=== PATIENT | female | born 1955 | race Caucasian/White ===

== ENCOUNTER 2016-10-09 11:37 | Outpatient (CLI) | payer BC ==
[~2016-10-09] VITALS: Ht 167.6 cm; Wt 115.9 kg
--- NOTE | ~2016-10-09 | HEMODYNAMI ---
PATIENT:ADELFO DIALLO MEDICAL RECORD: [id number] : 57 LOCATION:[facility] ADMISSION DATE: 10/09/16 Generatedon:10/09/201614:59 Patient name: ADELFO DIALLO Patient #: [id number] SSN: : 1955 Date of study: 10/09/2016 Page: Of Hemodynamic Procedure Report Patient Data Patient Demographics Procedure consent was obtained First Name: ADELFO Gender: Female Last Name: IMANI : 1955 [facility] Initial: DANDY Age: 61 year(s) Patient #: [id number] Race: Additional ID: [id number] Contact details Address: [address] [place] [address] State: [place] City: [place] Zip code: [address] Past Medical History Allergies: No known allergies Admission Admission Data Admission Date: 10/09/2016 Admission Time: 11:37 Lab Results Lab Result Date: 10/09/2016 Lab Result Time: 1:15 Biochemistry Name Units Result Min Max BUN mg/dl 26 --(----)-* 7 18 Creatinine mg/dl 0.9 --(-*--)-- 0.6 1.3 CBC Name Units Result Min Max Hematocrit % 42.5 --(*---)-- 42 54 Hemoglobin g/dl 13.9 --(*---)-- 13.5 17.5 Procedure Procedure Types Cath Procedure Diagnostic Procedure C [facility] w/Coronaries PCI Procedure Coronary Stent Initial Miscellaneous Procedures Moderate Sedation up to 30 minutes Procedure Description Procedure Date Procedure Date: 10/09/2016 Procedure Start Time: 14:36 Procedure End Time: 14:58 Procedure Staff Name Function Rodrigeuz Stephen MD Performing Physician Park Guzman RT Scrub Norman Farias RN Nurse Stephan Corrales RT Monitor Procedure Data Cath Procedure Fluoroscopy Diagnostic fluoroscopy Total fluoroscopy Time: 4.8 time: 4.8 min min Diagnostic fluoroscopy Total fluoroscopy dose: dose: 1043 mGy 1043 mGy Contrast Material Contrast Material Type Amount (ml) Isovue 300 132 Entry Location Entry Primary Successful Side Size Upsize Upsize Entry Closure Womack ccessful Closure Location (Fr) 1 (Fr) 2 (Fr) Remarks Device Remarks Radial Right 6 Fr Mechanical artery Short Compression Estimated blood loss: 10 ml Diagnostic catheters Device Type Used For End Catheter Placement Terumo 5Fr [place] 110cm Procedure catheter Procedure Complications No complications Procedure Medications Medication Administration Route Dosage Oxygen NC 2 l/min Heparin Flush Bag added to field 2 bags (1000units/500ml NS) 0.9% NaCl I.V. 100 ml/hr Radial Cocktail added to field 1 syringe (Verapomil 2mg/Nitro 400mcg/Heparin 1500units) Fentanyl I.V. 50 mcg Versed I.V. 1 mg Radial Cocktail I.A. 1 syringe (Verapomil 2mg/Nitro 400mcg/Heparin 1500units) Fentanyl I.V. 50 mcg Versed I.V. 1 mg Heparin Bolus I.V. 29424 units Brilinta P.O. 180 mg Hemodynamics Rest HGB: 13.9 (g/dl) Heart Rate: 66 (bpm) Pressure Samples Time Site Value (mmHg) Purpose Heart Use Rate(bpm) 14:38 LV 107/-6,5 Snapshot 62 14:38 LV 112/0,7 Snapshot 62 14:39 AO 105/55(73) Pullback 69 14:39 LV 106/-4,6 Pullback 69 Gradients Valve Time Site 1 Site 2 Mean SEP/DFP Peak To Heart Use (mmHg) (sec/min) Peak Rate (mmHg) (bpm) Aortic 14:39 LV AO 1 4 1 69 106/-4,6 105/55(73) Calculations Valve P-P Mean Valve Index Valve Source Name Gradient Area Flow (cm2) Aortic 1 1 1 1 Snapshots Pre Cath Intra NCS Post Cath Vital Signs Time Heart Resp SPO2 NIBP (mmHg) Rhythm Pain Sedation Rate (ipm) (%) Status Level (bpm) 14:27:29 64 18 100 178/91(139) NSR 0 (11) 10(A) , No pain 14:35:28 60 18 100 147/74(120) NSR 0 (11) 10(A) , No pain 14:45:45 64 18 96 134/73(106) NSR 0 (11) 9(A) , No pain 14:50:09 63 17 97 144/72(116) NSR 0 (11) 9(A) , No pain 14:54:33 63 17 98 147/74(120) NSR 0 (11) 9(A) , No pain Medications Time Medication Route Dose Verified Delivered Reason Note s Effectiveness by by 14:20:01 Oxygen NC 2 l/min Norman Austin Per physician Jarrett Farias RN RN 14:20:12 Heparin Flush added 2 bags Norman Hernandezy used for Bag to Jarrett Farias RN procedure (1000units/500ml field RN NS) 14:20:22 0.9% NaCl I.V. 100 Norman Norman Per physician ml/hr Jarrett aFrias RN RN 14:20:39 Radial Cocktail added 1 Norman Norman used for (Verapomil to syringe Jarrett Farias RN procedure 2mg/Nitro field RN 400mcg/Heparin 1500units) 14:32:02 Fentanyl I.V. 50 mcg Norman Austin for sedation Jarrett Farias RN RN 14:32:08 Versed I.V. 1 mg Norman Norman for sedation Jarrett Farias RN RN 14:37:43 Radial Cocktail I.A. 1 Norman Rodriguez for (Verapomil syringe Jarrett Stephen MD vasodilation 2mg/Nitro RN 400mcg/Heparin 1500units) 14:37:48 Fentanyl I.V. 50 mcg Norman Hernandezy for sedation Jarrett Farias RN RN 14:37:54 Versed I.V. 1 mg Norman Austin for sedation Jarrett Farias RN RN 14:46:33 Heparin Bolus I.V. 56466 Norman Austin for units Jarrett Farias RN anticoagulation RN 14:53:20 Brilinta P.O. 180 mg Norman Austin for Jarrett Farias RN antiplatelet RN therapy Procedure Log Time Note 13:32:53 Norman Farias RN sent for patient. Start room use. 13:32:55 Time tracking: Regular hours 13:32:58 Plan of Care:Hemodynamics will remain stable., Cardiac rhythm will remain stable., Comfort level will be maintained., Respiratory function will remain adequate., Patient/ family verbilizes understanding of procedure., Procedure tolerated without complication., Recovers from procedure without complications.. 14:12:23 Patient received from Pre/Post Procedure Room to CCL 2 Alert and oriented. Tansferred to table in Supine position. 14:12:24 Warm blankets applied, and brenton hugger turned on for patient comfort. 14:12:25 Correct patient and procedure confirmed by team. 14:12:25 Signed procedure consent form obtained from patient. 14:12:26 ECG and BP/O2 sat monitors applied to patient. 14:12:27 Full Disclosure recording started 14:18:39 Vital chart was started 14:20:01 Oxygen 2 l/min NC was administered by Norman Farias RN; Per physician; 14:20:12 Heparin Flush Bag (1000units/500ml NS) 2 bags added to field was administered by Norman Farias RN; used for procedure; 14:20:22 0.9% NaCl 100 ml/hr I.V. was administered by Norman Farias RN; Per physician; 14:20:39 Radial Cocktail (Verapomil 2mg/Nitro 400mcg/Heparin 1500units) 1 syringe added to field was administered by Norman Farias RN; used for procedure; 14:24:34 Baseline sample Acquired. 14:24:39 Rhythm: sinus rhythm 14:24:56 H&P Date Dictated: 10/02/2016 Within 30 days and on chart., H&P Addendum completed by physician on day of procedure. (MUST COMPLETE FOR ALL OUTPATIENTS). 14:24:57 Pre-procedure instructions explained to patient. 14:24:57 Pre-op teaching completed and patient verbalized understanding. 14:24:58 Family in waiting room. 14:24:59 Patient NPO since Midnight. 14:25:09 Patient allergic to No known allergies 14:25:11 Is the patient allergic to Iodine/contrast media? No. 14:25:13 Is patient on blood thinner?No 14:25:14 Patient diabetic? Yes. 14:25:14 If diabetic: On Metformin? Yes 14:25:21 Vital chart was stopped 14:25:53 If on Metformin: Last Dose? 10/07/2016 14:25:57 Previous problem with sedation/anesthesia? No ? 14:25:57 Snore? Yes 14:25:58 Sleep apnea? No 14:25:59 Deviated septum? No 14:26:00 Opens mouth fully? Yes 14:26:01 Sticks out tongue? Yes 14:26:03 Airway obstruction? No ? 14:26:04 Dentures? No ? 14:26:07 Modified Felix's test Ulnar < 7 seconds 14:26:08 Patient pain scale 0/10 ?. 14:26:16 IV patent on arrival in left hand with 0.9% NaCl at [facility]. 14::57 Lab Result : BUN 26 mg/dl 14: Lab Result : Creatinine 0.9 mg/dl 14: Lab Result : Hemoglobin 13.9 g/dl 14:: Lab Result : Hematocrit 42.5 % 14:27: Lab results completed and on chart. 14:27:04 Right Radial & Right Groin area was prepped with chlora-prep and draped in sterile fashion 14:27:05 Alarms reviewed by R. N. 14:27:06 Sharps counted by scrub and verified by R.N. 14:27:12 Use device set Radial Dx 14:27:12 MBrace Wrist Support opened to sterile field. 14:27:13 Tegaderm 4 x 4 opened to sterile field. 14:27:14 Acist Manifold opened to sterile field. 14:27:14 Acist Hand Control opened to sterile field. 14:27:15 Acist Syringe opened to sterile field. 14:27:16 Medline Cath Pack opened to sterile field. 14:27:16 Bag Decanter opened to sterile field. 14:27:17 Terumo 6Fr Slender Glidesheath opened to sterile field. 14:27:17 St Ag 260cm J .035 wire opened to sterile field. 14:27:30 Physician arrived 14::33 --------ALL STOP TIME OUT------ 14:27:34 Final Timeout: patient, procedure, and site verified with staff and physician. All members of the team are in agreement. 14:27:38 Right Radial & Right Groin site verified by team. 14::49 Physical assessment completed. ASA score P 2 - A patient with mild systemic disease as per Rodriguez Stephen MD. 14:27:52 Sedation plan: IV Moderate Sedation Versed, Fentanyl 14:32:02 Fentanyl 50 mcg I.V. was administered by Normna Farias RN; for sedation; 14:32:08 Versed 1 mg I.V. was administered by Norman Farias RN; for sedation; 14:36:05 Zero performed for pressure channel P1 14:36:44 Procedure started. 14:36:49 Local anesthetic to right radial artery with Lidocaine 2% by Rodriguez Stephen MD.INITIAL ACCESS ONLY 14:37:00 A 6 Fr Short sheath was inserted into the Right Radial artery 14:37:21 A Terumo 5Fr [place] 110cm catheter was advanced over the wire and used for Procedure. 14:37:43 Radial Cocktail (Verapomil 2mg/Nitro 400mcg/Heparin 1500units) 1 syringe I.A. was administered by Rodriguez Stephen MD; for vasodilation; 14:37:48 Fentanyl 50 mcg I.V. was administered by Norman Farias RN; for sedation; 14:37:54 Versed 1 mg I.V. was administered by Norman Farias RN; for sedation; 14:39:07 LV gram done using GOMEZ 14:39:10 Injector settings: Ml/sec: 5, Volume: 15, 14:39:14 EF : 55 % 14:39:52 LCA angiography performed. 14:41:12 RCA angiography performed. 14:42:44 Catheter removed. 14:43:05 High Pressure Extension Tubing (Zafar) opened to sterile field. 14:43:06 Puckett BMW [place] 2 J-tip 300cm 0.014 guide wir opened to sterile field. 14:43:06 Hiri BasixCompak Inflation Kit opened to sterile field. 14:44:03 Medtronic Launcher 6Fr AR 1.0 guide catheter opened to sterile field. 14:44:12 6 Fr ar 1 guide catheter was inserted over the wire 14:44:51 Vital chart was started 14:46:33 Heparin Bolus 19692 units I.V. was administered by Norman Farias RN; for anticoagulation; 14:46:53 bmw wire advanced. 14:50:30 Inflation Number: 1 A Medtronic Integrity 3.0 X 22 stent was prepped and advanced across the Mid RCA. The stent was deployed at 12 GABRIELLA for 0:10 (min:sec). 14:52:26 Stent catheter was removed intact over wire. 14:52:26 Wire removed. 14:52:27 Guide catheter removed. 14:53:11 Sheath removed intact; hemostasis achieved with Mechanical Compression to the Right Radial artery. 14:53:13 Procedure ended.(Physican Out) 14:53:20 Brilinta 180 mg P.O. was administered by Norman Farias RN; for antiplatelet therapy; 14:55:02 Fluoroscopy time 04.80 minutes. 14:55:07 Flurop Dose total: 1043 14:55:07 Fluoroscopy dose: 1043 mGy 14:56:01 Contrast amount:Isovue 300 132ml. 14:56:02 Sharps counted by scrub and verified by R.N. 14:56:07 TR band inflated with 12cc of air. 14:56:07 Insertion/operative site no bleeding no hematoma. 14:56:11 Post Procedure Pulses reassessed and unchanged 14:56:13 Post-procedure physical assessment completed. ASA score P 2 - A patient with mild systemic disease as per Rodriguez Stephen MD. 14:56:15 Post procedure rhythm: unchanged. 14:56:17 Estimated blood loss: 10 ml 14:56:19 Post procedure instruction explained to patient.Patient verbalizes understanding. 14:56:19 Patient needs reinforcement of post procedure teaching. 14:56:30 Procedure type changed to Cath procedure, Diagnostic procedure, LHC, LHC w/Coronaries, PCI procedure, Coronary Stent Initial, Miscellaneous Procedures, Moderate Sedation up to 30 minutes 14:58:13 Procedure and supply charges have been captured, reviewed, submitted and are correct. 14:58:18 Procedure Complication : No complications 14:58:20 See physician's report for complete and final results. 14:58:22 Report given to Pre/Post Procedure Room. 14:58:24 Patient transfered to Pre/Post Procedure Room with Stretcher. 14:58:25 Procedure ended. 14:58:25 Full Disclosure recording stopped 14:58:43 End room use (Document Last) 14:59:04 Vital chart was stopped Intervention Summary Intervention Notes Time ActionType Lesion and Equipment Action# Pressure Duration Attributes Used 14:50:30 Place stent Mid RCA Medtronic 1 12 00:10 Integrity 3.0 X 22 stent Device Usage Item Name Manufacture Quantity Catalog Hospital Part Current Minimal Lot# / Number Charge Number Stock Stock Serial# Code [facility] Advanced 1 140-0250-00 524183 50108 542813 5 Wrist Vascular Support Dynamics Tegaderm 4 3M 1 1626W 114674 912454 079884 5 x 4 Acist Acist 1 66524 113638 902478 845042 5 Manifold Medical Systems Inc Acist Hand Acist 1 25441 807366 119110 995465 5 Control Medical Systems Inc Acist Acist 1 61349 454667 833685 756070 20 Syringe Medical Systems Inc Medline Cardinal 1 [id number] 416017 10044 423615 5 Cath Pack Health Bag Microtek 1 2002S 791122 57881 868038 5 DecTrashOut Medical Inc. Terumo 6Fr Terumo 1 [id number] 967269 388562 097981 [address] Ag St Ag 1 867960 548213 120676 533187 30 260cm J .035 wire Terumo 5Fr Terumo 1 40-8523 593659 368545 287095 5 [place] 110cm catheter High Merit 1 [id number] 539816 18051 125595 10 Pressure Medical Extension Tubing (Stephen) Puckett BMW Puckett 1 [id number] 727378 896332 391787 5 [place] 2 Vascular J-tip 300cm 0.014 guide wir Merit Merit 1 [id number] 878817 506988 339566 15 BasixCompak Medical Inflation Kit Medtronic Medtronic 1 [id number] 562004 52768 441242 1 Launcher 6Fr AR 1.0 guide catheter Medtronic Medtronic 1 [id number] 012731 212905 149768 9 [id number] Integrity 3.0 X 22 stent Signature Audit [place] Stage Time Signature Unsigned Intra-Procedure 10/09/2016 Stephan Corrales 2:59:01 PM RT(R) Signatures Monitor : Stephan Corrales RT Signature : Date : Time : [place] [address] [place] [place] [address]
[~2016-10-09 11:37] MED LIST: ASPIRIN EC81 M1 PO; BENADRYL25 MG PO; BRILINTA90 MG PO; GLUCOPHAGE500 MG PO; K-TAB10 MEQ PO; LASIX20 MG PO; LYRICA75 MG PO; NOVOLIN N100 U/ML SQ; PERCOCET 10/3251 TA1 PO; PROTONIX20 MG PO; ULTRAM50 MG PO; ZESTORETIC 20-1 EACH PO
[2016-10-09] MEDS ORDERED: TRESIBA FL100 UNIT/1 SC (13:19)
[2016-10-09 13:23] VITALS: BP 174/76; Ht 167.6 cm; Wt 115.9 kg
[2016-10-09 13:28] LABS: BASOPHILS 0.5 % (0-2); EOSINOPHILS 0.9 % (0-7); HEMATOCRIT 42.5 % (36.0-48.0); HEMOGLOBIN 13.9 g/dL (12-16); IMMATURE GRANULOCYTES 0.1 % (0-5); LYMPHOCYTES 31.4 % (15-50); MCH 30.4 pg (26.0-34.0); MCHC 32.7 g/dL (31.0-37.0); MEAN PLATELET VOLUME 10.6 fL (7.4-10.4); MONOCYTES 8.8 % (2-11); NEUTROPHILS 58.3 % (40-80); PLATELET COUNT 249 10x3/uL (130-400); RBC 4.57 10x6/uL (4.00-5.40); WBC 7.6 10x3/uL (4.8-10.8)
[2016-10-09 13:46] LABS: ANION GAP 14.1 mmol/L (8-16); CALCIUM 9.1 mg/dL (8.5-10.1); CARBON DIOXIDE 24.1 mmol/L (21.0-32.0); CREATININE - SERUM 0.9 mg/dL (0.6-1.3); POTASSIUM - SERUM 4.2 mmol/L (3.5-5.1)
[2016-10-09] MEDS ORDERED: BRILINTA90 MG PO (18:16)
--- NOTE | 2016-10-09 18:21 | NUR ---
1530-TRACELET IN PLACE, NO BLEEDING NOTED, AT SIDE
--- NOTE | 2016-10-09 18:27 | NUR ---
1600-NO CHANGES NOTED
--- NOTE | 2016-10-09 20:07 | NUR ---
1924-BLOOD PRESSURE 205/91, ADJUSTED CUFF- CONTINUES HIGH, DR GREGOR HORNE-NEW ORDERS RECEIVED. 1929-CLONIDINE 0.1MG GIVEN PO. IV D'C WITH CATH TIP INTACT, TRACELET OFF WITHOUT BLEEDING OR HEMATOMA NOTED. 1954-B/P 189/78, DENIES CHEST PAIN OR OTHER S/S. D'C HOME WITH FAMILY, WRITTEN AND VERBAL INSTRUCTIONS GIVEN TO FAMILY.
--- NOTE | 2016-10-10 08:45 | OP ---
PATIENT NAME: ADELFO DIALLO MEDICAL RECORD: [id number] :57 LOCATION:D.CAT ADMISSION DATE: SURGEON: EDITH BUNDY M.D. DATE OF OPERATION: 10/09/2016 REFERRING PHYSICIAN: Maribel Lindsay. PROCEDURES PERFORMED: 1. Selective coronary angiography. 2. Left heart catheterization with ventriculogram. INDICATION: A 61-year-old patient who presents with symptoms of accelerating angina, status post stenting 2 years ago. EQUIPMENT USED: Diagnostic 5-Persian [place] catheter. INTERVENTION: A 6-Persian AR1 guide, BMW guidewire, 3.0 x 22 mm Integrity stent. TECHNIQUE: A 6-Persian sheath was inserted in retrograde fashion in the right radial artery. Next, selective coronary angiography was performed in standard views using 5-Persian [place] catheter. Left heart catheterization was performed using [place] catheter as well. CORONARY ANATOMY: 1. Left main: Left main trunk is moderate in caliber. It gives rise to the LAD and circumflex. It is angiographically normal. 2. LAD: This is a moderate-caliber vessel extending to the apex. It has mild irregularities throughout its course, but nothing worse than 20%. 3. Circumflex: This vessel is moderate in caliber. It supplies a large lateral branch proximal segment. The circumflex and lateral branch have mild irregularities, but nothing worse than 20%. 4. Right coronary artery: This vessel is moderate in caliber and dominant. The proximal vessel has been stented. There is mild restenosis seen, but nothing worse than 20%. However, the mid vessel demonstrates a hazy area, which may represent a ruptured plaque and a 70% stenosis. 5. Left ventricle: Left ventricle is normal in size and function. No wall motion abnormalities are noted. Estimated ejection fraction is 65%. DESCRIPTION OF INTERVENTION: A 100 units per kilogram of heparin was infused. A 6-Persian AR1 guide was advanced and engaged in the right coronary artery. Next, a BMW guidewire was placed in distal vessel. A 3.0 x 22 mm Integrity stent was placed across the area in question and deployed at 12 atmospheres. Injection shows stent to be widely patent with 0% residual stenosis. There is marked improvement in distal flow. At this point, the wire and guide were removed. IMPRESSION: Successful percutaneous transluminal coronary angioplasty and stent in the right coronary with 0% residual stenosis. TRANSINT:[id number] Voice Confirmation ID: [id number] DOCUMENT ID: [id number] OPERATIVE REPORT [id number] ADELFO DIALLO,EDITH Garcia M.D. at 0845 CC: [id number] DICTATION DATE: 10/09/16 1459 CONVEYOR BELT OPERATOR: 10/09/16 2227 [facility] CLI 10/09/[address] [address]
== END 2016-10-09 20:00 | disposition home or self-care (01) ==
LOC: D.CATH 11:37
PROVIDERS: Internal Medicine Cardiovascular Disease
DX: I25.10 Atherosclerotic heart disease of native coronary artery without angina pectoris (principal); I10 Essential (primary) hypertension; I34.0 Nonrheumatic mitral (valve) insufficiency; R06.02 Shortness of breath; Z01.812 Encounter for preprocedural laboratory examination; E11.9 Type 2 diabetes mellitus without complications; K21.9 Gastro-esophageal reflux disease without esophagitis

== ENCOUNTER 2016-10-23 17:22 | Emergency (ER) | payer BC ==
[2016-10-09 13:23] VITALS: BMI 41.2
[~2016-10-23 17:22] MED LIST changes: +TRESIBA FL100 UNIT/1 SC
[2016-10-23 18:03] LABS: BASOPHILS 0.4 % (0-2); EOSINOPHILS 0.7 % (0-7); HEMATOCRIT 40.1 % (36.0-48.0); HEMOGLOBIN 13.2 g/dL (12-16); IMMATURE GRANULOCYTES 0.2 % (0-5); LYMPHOCYTES 28.2 % (15-50); MCH 30.8 pg (26.0-34.0); MCHC 32.9 g/dL (31.0-37.0); MCV 93.7 fL (80.0-100.0); MEAN PLATELET VOLUME 10.5 fL (7.4-10.4); NEUTROPHILS 64.5 % (40-80); PLATELET COUNT 255 10x3/uL (130-400); RBC 4.28 10x6/uL (4.00-5.40); WBC 11.8 10x3/uL (4.8-10.8)
[2016-10-23 18:24] LABS: ALBUMIN 3.5 g/dL (3.4-5.0); ALKALINE PHOSPHATASE 89 U/L (46-116); ALT (SGPT) 19 U/L (10-68); BILIRUBIN - TOTAL 0.34 mg/dL (0.2-1.3); CALC OSMOLALITY 287 mosm/kg (275-300); CALCIUM 9.1 mg/dL (8.5-10.1); CHLORIDE - SERUM 104 mmol/L (98-107); CREATININE - SERUM 1.6 mg/dL (0.6-1.3); GLUCOSE 139 mg/dL (74-106); POTASSIUM - SERUM 4.3 mmol/L (3.5-5.1); PROTEIN - SERUM 7.1 g/dL (6.4-8.2); SODIUM 140 mmol/L (136-145); UREA NITROGEN 33 mg/dL (7-18); eGFR NON AFRICAN AMERICAN 35 mL/min (90-120)
[2016-10-23 19:00] LABS: CKMB 2.4 U/L (0.0-3.6); CREATINE KINASE 143 UL (21-215)
[2016-10-23 19:17] LABS: TROPONIN-I < 0.017 ng/mL (0.000-0.060)
== END 2016-10-23 21:30 | disposition home or self-care (01) ==
LOC: D.ER 17:22
PROVIDERS: Emergency Medicine
DX: R07.9 Chest pain, unspecified (principal); R50.9 Fever, unspecified; R05 Cough; I50.9 Heart failure, unspecified; E11.9 Type 2 diabetes mellitus without complications; Z79.4 Long term (current) use of insulin; I10 Essential (primary) hypertension; K21.9 Gastro-esophageal reflux disease without esophagitis; E83.42 Hypomagnesemia

== ENCOUNTER → 2017-05-16 19:44 | Outpatient (CLI) | payer BC ==
[2016-10-09 13:23] VITALS: BMI 41.2
== END | disposition home or self-care (01) ==
LOC: D.MAMMO 13:00
DX: Z12.31 Encounter for screening mammogram for malignant neoplasm of breast (principal)

== ENCOUNTER → 2018-10-03 23:17 | Outpatient (CLI) | payer MEDICARE ==
[2016-10-09 13:23] VITALS: BMI 41.2
== END | disposition home or self-care (01) ==
LOC: D.MAMMO 13:45
PROVIDERS: ATTEND Family Medicine
DX: Z12.31 Encounter for screening mammogram for malignant neoplasm of breast (principal)

== ENCOUNTER → 2018-11-12 17:23 | Outpatient (CLI) | payer MEDICARE ==
[2016-10-09 13:23] VITALS: BMI 41.2
== END | disposition home or self-care (01) ==
LOC: D.MAMMO 14:30
PROVIDERS: ATTEND Family Medicine
DX: R92.8 Other abnormal and inconclusive findings on diagnostic imaging of breast (principal)

== ENCOUNTER 2019-11-14 15:43 | Emergency (ER) | payer MEDICARE ==
[~2019-11-14] VITALS: Ht 167.6 cm; Wt 122.7 kg
[2019-11-14 15:50] VITALS: Ht 167.6 cm; Wt 122.7 kg
[2019-11-14] MEDS ORDERED: FUROSEMIDE20 MG (15:52)
[2019-11-14] MEDS ORDERED: ALDACTONE25 MG PO (15:53)
[2019-11-14] MEDS ORDERED: COREG6.25 MG PO (15:54)
[2019-11-14] MEDS ORDERED: AVAPRO75 MG PO (15:54)
[2019-11-14] MEDS ORDERED: ZOCOR20 MG PO (15:54)
[2019-11-14] MEDS ORDERED: LANTUS INS100 UNITS/ (15:55)
[2019-11-14] MEDS ORDERED: SIMVASTATIN (15:55)
[2019-11-14] MEDS ORDERED: NOVOLIN (15:56)
[2019-11-14] MEDS ORDERED: AUGMENTIN 875-11 TAB PO (17:09)
[2019-11-14] MEDS ORDERED: MOBIC7.5 MG PO (17:12)
[2019-11-14 17:37] VITALS: BP 138/82
== END 2019-11-14 17:39 | disposition home or self-care (01) ==
LOC: D.ER 15:43
DX: M25.531 Pain in right wrist (principal); M79.601 Pain in right arm; W19.XXXA Unspecified fall, initial encounter; Y93.9 Activity, unspecified; Y92.9 Unspecified place or not applicable; H66.92 Otitis media, unspecified, left ear; M89.9 Disorder of bone, unspecified; E11.9 Type 2 diabetes mellitus without complications; I11.0 Hypertensive heart disease with heart failure; I50.9 Heart failure, unspecified; K21.9 Gastro-esophageal reflux disease without esophagitis; Z79.4 Long term (current) use of insulin

== ENCOUNTER → 2019-11-18 08:04 | Outpatient (CLI) | payer MEDICARE ==
[2019-11-14 15:50] VITALS: BMI 43.6
[~2019-11-18 08:04] MED LIST changes: +ALDACTONE25 MG PO; +AUGMENTIN 875-11 TAB PO; +AVAPRO75 MG PO; +COREG6.25 MG PO; +FUROSEMIDE20 MG; +LANTUS INS100 UNITS/; +MOBIC7.5 MG PO; +NOVOLIN; +SIMVASTATIN; +ZOCOR20 MG PO
[2019-11-18 08:45] LABS: CREATININE - SERUM 1.7 mg/dL (0.6-1.3)
== END | disposition home or self-care (01) ==
LOC: D.MRI 08:04
PROVIDERS: ATTEND Nurse Practitioner Family
DX: Z00.00 Encounter for general adult medical examination without abnormal findings (principal); M25.531 Pain in right wrist

== ENCOUNTER 2020-07-03 19:07 | Inpatient (IN) | payer MEDICARE ==
[~2020-07-03] VITALS: Ht 167.6 cm; Wt 119.3 kg
[~2020-07-03 19:07] MED LIST changes: +LEVOFLOXACIN500 MG PO
[2020-07-03 20:18] LABS: BASOPHILS 0.2 % (0-2); EOSINOPHILS 0.3 % (0-7); HEMATOCRIT 25.7 % (36.0-48.0); HEMOGLOBIN 7.8 g/dL (12-16); IMMATURE GRANULOCYTES 0.3 % (0-5); LYMPHOCYTES 8.1 % (15-50); MCH 28.4 pg (26.0-34.0); MCHC 30.4 g/dL (31.0-37.0); MCV 93.5 fL (80.0-100.0); MEAN PLATELET VOLUME 9.3 fL (7.4-10.4); MONOCYTES 6.2 % (2-11); NEUTROPHIL ABS# 16.73 10x3/uL (1.56-6.13); NEUTROPHILS 84.9 % (40-80); PLATELET COUNT 442 10x3/uL (130-400); RBC 2.75 10x6/uL (4.00-5.40); RDW 13.7 % (11.5-14.5); WBC 19.7 10x3/uL (4.8-10.8)
[2020-07-03 20:30] LABS: APTT 32.5 SECONDS (22.8-39.4); INR 1.33 (0.85-1.17); PROTIME 15.3 SECONDS (11.6-15.0)
[2020-07-03 20:51] LABS: ANION GAP 16.5 mmol/L (8-16); CALCIUM 8.2 mg/dL (8.5-10.1); CARBON DIOXIDE 22.7 mmol/L (21.0-32.0); CREATININE - SERUM 2.8 mg/dL (0.6-1.3); POTASSIUM - SERUM 5.2 mmol/L (3.5-5.1)
[2020-07-03 20:52] LABS: D-DIMER-QUANTITATIVE 3.81 ug/mLFEU (0.20-0.54)
[2020-07-03 21:11] LABS: ALBUMIN 2.7 g/dL (3.4-5.0); BILIRUBIN - TOTAL 0.28 mg/dL (0.2-1.3); PROTEIN - SERUM 6.2 g/dL (6.4-8.2)
--- NOTE | 2020-07-03 22:00 | NUR ---
DRESSING CHANGE PT TOLERATED WELL.
[2020-07-03] MEDS ORDERED: LANTUS INS100 UNITS/ SC (22:47)
[2020-07-03 22:48] LABS: % SATURATION 10 % (15-55); IRON 18 ug/dl (35-150); TOTAL IRON BIND CAPACITY 179 ug/dl (260-445); UNSAT IRON BIND CAPACITY 161 ug/dl (150-375)
[2020-07-03] MEDS ORDERED: NOVOLIN R (22:48)
[2020-07-03] MEDS ORDERED: FUROSEMIDE20 MG PO (22:49)
[2020-07-03] MEDS ORDERED: BAYER CHEWABLE81 MG PO (22:49)
[2020-07-03] MEDS ORDERED: ZOCOR20 MG PO (22:49)
[2020-07-03] MEDS ORDERED: NEURONTIN 400400 MG PO (22:50)
[2020-07-03] MEDS ORDERED: COLACE100 MG PO (22:51)
[2020-07-03] MEDS ORDERED: PLAVIX75 MG PO (22:51)
[2020-07-03] MEDS ORDERED: HYDROCHLOROTH12.5 M1 PO (22:51)
[2020-07-03] MEDS ORDERED: COREG12.5 MG PO (22:51)
[2020-07-03] MEDS ORDERED: EZFE 200200 MG PO (22:52)
[2020-07-03] MEDS ORDERED: HYDROCODON-ACE1 EAC7 PO (22:52)
[2020-07-03 22:57] VITALS: BP 111/48
--- NOTE | 2020-07-03 22:58 | NUR ---
KYLE PLACED AT THIS TIME TOLERATED WELL 1000ML IMMEDIATELY CLAMPED. INFORMED.
[2020-07-03 23:08] LABS: BILIRUBIN NEGATIVE (NEGATIVE); KETONE NEGATIVE (NEGATIVE); NITRITE NEGATIVE (NEGATIVE); UROBILINOGEN NORMAL mg/dL (< 2)
[2020-07-04] VITALS (8 sets, daily range): BP systolic 100–163; BP diastolic 30–65; BMI 30.6
--- NOTE | 2020-07-04 | NUR ---
1200 ML EMPTIED FROM KYLE AT THIS TIME.
[2020-07-04] MEDS ORDERED: AVAPRO300 MG PO (00:18)
--- NOTE | 2020-07-04 05:24 | NUR ---
PT GIVEN WATER TO DRINK AT THIS TIME. DENIES FURTHER NEEDS.
[2020-07-04 06:03] LABS: HEMATOCRIT 24.4 % (36.0-48.0); HEMOGLOBIN 7.6 g/dL (12-16); LYMPHOCYTES 8.9 % (15-50); MCH 29.2 pg (26.0-34.0); MCHC 31.1 g/dL (31.0-37.0); MCV 93.8 fL (80.0-100.0); MEAN PLATELET VOLUME 9.6 fL (7.4-10.4); NEUTROPHILS 82.8 % (40-80); PLATELET COUNT 428 10x3/uL (130-400); RDW 12.5 % (11.5-14.5); WBC 16.7 10x3/uL (4.8-10.8)
[2020-07-04 06:44] LABS: ALBUMIN 2.6 g/dL (3.4-5.0); ALKALINE PHOSPHATASE 101 U/L (30-120); ALT (SGPT) 19 U/L (10-68); BILIRUBIN - TOTAL 0.31 mg/dL (0.2-1.3); CALC OSMOLALITY 303 mosm/kg (275-300); CALCIUM 8.2 mg/dL (8.5-10.1); CARBON DIOXIDE 22.5 mmol/L (21.0-32.0); CHLORIDE - SERUM 107 mmol/L (98-107); CKMB 0.4 U/L (0.0-3.6); CREATINE KINASE 60 UL (21-215); CREATININE - SERUM 2.6 mg/dL (0.6-1.3); GLUCOSE 125 mg/dL (74-106); MAGNESIUM - SERUM 2.6 mg/dL (1.8-2.4); PROTEIN - SERUM 5.9 g/dL (6.4-8.2); SODIUM 141 mmol/L (136-145); UREA NITROGEN 75 mg/dL (7-18); eGFR NON AFRICAN AMERICAN 20 mL/min (90-120)
[2020-07-04 06:46] LABS: TROPONIN-I < 0.017 ng/mL (0.000-0.060)
--- NOTE | 2020-07-04 08:00 | NUR ---
FSBS NOT DONE. PT HAD ALREADY EATEN.
[2020-07-04 11:00] LABS: CKMB 0.7 U/L (0.0-3.6); CREATINE KINASE 62 UL (21-215); TROPONIN-I < 0.017 ng/mL (0.000-0.060)
[2020-07-04 16:51] LABS: CKMB 0.6 U/L (0.0-3.6); CREATINE KINASE 64 UL (21-215)
[2020-07-04 16:57] LABS: TROPONIN-I < 0.017 ng/mL (0.000-0.060)
--- NOTE | 2020-07-04 19:10 | NUR ---
REPORT TO ROSCOE ORTIZ/DEION RN
--- NOTE | 2020-07-04 21:50 | NUR ---
INFUSION OF ZOSYN COMPLETE AT THIS TIME.
--- NOTE | 2020-07-04 22:00 | NUR ---
PT TRANSFERRED TO INPATIENT HOSPITAL BED AND ADJUSTED TO A POSITION OF COMFORT AT THIS TIME. PT DENIES FURTHER NEEDS. BED IN LOWEST POSITION, CALL LIGHT WITHIN REACH
[2020-07-05] VITALS (8 sets, daily range): BP systolic 106–139; BP diastolic 32–51; BMI 44.9
--- NOTE | 2020-07-05 03:03 | NUR ---
PT ARRIVED ON UNIT VIA BED ESCORTED BY X ER NURSES. ORIENTED TO ROOM AND CALL LIGHT.
--- NOTE | 2020-07-05 03:41 | NUR ---
ADMISSION ASSESSMENT AND HISTORY COMPLETED. TELEMETRY PLACED PER ORDER. IV FLUIDS RE-STARTED PER ORDER.
[2020-07-05 08:16] LABS: ALBUMIN 2.4 g/dL (3.4-5.0); ANION GAP 14.3 mmol/L (8-16); BILIRUBIN - TOTAL 0.31 mg/dL (0.2-1.3); CARBON DIOXIDE 21.8 mmol/L (21.0-32.0); CREATININE - SERUM 2.6 mg/dL (0.6-1.3); MAGNESIUM - SERUM 2.4 mg/dL (1.8-2.4); POTASSIUM - SERUM 5.1 mmol/L (3.5-5.1); PROTEIN - SERUM 5.8 g/dL (6.4-8.2)
[2020-07-05 08:44] LABS: VANCOMYCIN - RANDOM 16.7 ug/mL (10.0-20.0)
[2020-07-05 08:50] LABS: BASOPHILS 0.4 % (0-2); HEMATOCRIT 23.3 % (36.0-48.0); IMMATURE GRANULOCYTES 0.3 % (0-5); LYMPHOCYTE ABS# 1.85 10x3/uL (1.18-3.74); LYMPHOCYTES 10.2 % (15-50); MCH 28.5 pg (26.0-34.0); MCV 94.7 fL (80.0-100.0); MEAN PLATELET VOLUME 9.4 fL (7.4-10.4); MONOCYTES 7.2 % (2-11); NEUTROPHIL ABS# 14.74 10x3/uL (1.56-6.13); NEUTROPHILS 80.9 % (40-80); PLATELET COUNT 469 10x3/uL (130-400); RBC 2.46 10x6/uL (4.00-5.40); RDW 13.9 % (11.5-14.5); WBC 18.2 10x3/uL (4.8-10.8)
--- NOTE | 2020-07-05 08:50 | NUR ---
PATIENT IN BED WITH IV INTACT. REPOSITIONED AND NOW SITTING UP EATING. NO COMPLAINTS. CALL LIGHT WITHIN REACH.
--- NOTE | 2020-07-05 09:17 | NUR ---
NOTIFIED CONOR ALVA PATIENTS HGB 7.0
--- NOTE | 2020-07-05 11:00 | NUR ---
FIRST UNIT OF BLOOD STARTED. IV INTACT. VS STABLE. PATIENT HAS NO COMPLAINTS OR SIGNS OF DISTRESS. CALL LIGHT WITHIN REACH.
--- NOTE | 2020-07-05 11:15 | NUR ---
PATIENT IN BED WITH IV INTACT. BLOOD INFUSING VS STABLE. NO COMPLAINTS. CALL LIGHT WITHIN REACH.
[2020-07-05 13:22] LABS: ERYTHROCYTE SEDIMENTATION RATE 99 mm/hr (0-30)
--- NOTE | 2020-07-05 15:44 | MORECARE ---
CASE MANAGEMENT DISCHARGE SUMMARY PATIENT: ADELFO DIALLO UNIT: [id number] ADM DATE: 07/03/20 AGE: 64 : 57 SEX: F ROOM/BED: D.2223 AUTHOR: ELIZABETH TORRES PHYSICIAN: REFERRING PHYSICIAN: BRIGIDA PATTERSON DO DATE OF SERVICE: 07/05/20 Discharge Plan Patient Name: ADELFO DIALLO Facility: [facility]:[place] : 1955 Planned Disposition: Home with Home Health Anticipated Discharge Date: Discharge Date: Expected LOS: Initial Reviewer: [email or web address] Initial Review Date: 07/03/2020 Generated: 07/05/20 4:44 pm DCPIA - Discharge Planning Initial Assessment Updated by [email or web address]: Domingo Stock on 07/05/20 3:39 pm * Is the patient Alert and Oriented? Yes * How many steps to enter\exit or inside your home? RAMP * PCP [facility] * Pharmacy [facility] * Preadmission Environment Home with Family * ADLs Partial Dependent * Partial ADLs (Assistance needed) Ambulation Bathing Dressing Eating Medication Management Toileting Transfers * Equipment Walker * Other Equipment n/a * List name and contact numbers for known caregivers / representatives who currently or will assist patient after discharge: LINDSEY MCINTYRE (dtr) [phone] * Verbal permission to speak to the caregivers and representatives has been obtained from the patient. Yes * Community resources currently utilized Home Health * Please name any agencies selected above. [facility] * Additional services required to return to the preadmission environment? Yes * Can the patient safely return to the preadmission environment? Yes * Has this patient been hospitalized within the prior 30 days at any hospital? No Patient Name: ADELFO DIALLO Page [id number] at 1544 All edits/amendments must be made on the electronic document DICTATION DATE: 07/05/201543 COMPOUND MACHINE OPERATOR: COOPER 07/05/201543 RPT#: [id number] DC DATE: STATUS: ADM IN [facility] [address] [place] [address] END OF REPORT
--- NOTE | 2020-07-05 15:45 | NUR ---
PATIENT REPOSITIONED AND LAYING ON SIDE. DRESSING TO FOOT CDI. IV INTACT. SECOND UNIT OF BLOOD STARTED. PATIENT VS STABLE. CALL LIGHT WITHIN REACH.
--- NOTE | 2020-07-05 16:00 | NUR ---
PATIENT BLOOD INFUSING AT THIS TIME. IV INTACT. VS STABLE. CALL LIGHT WITHIN REACH.
--- NOTE | 2020-07-05 16:09 | MORECARE ---
CASE MANAGEMENT DISCHARGE SUMMARY PATIENT: ADELFO DIALLO UNIT: [id number] ADM DATE: 07/03/20 AGE: 64 : 57 SEX: F ROOM/BED: D.2223 AUTHOR: MELISSA,DOC PHYSICIAN: REFERRING PHYSICIAN: BRIGIDA PATTERSON DO DATE OF SERVICE: 07/05/20 Discharge Plan Patient Name: ADELFO DIALLO Facility: [facility]:[place] : 1955 Planned Disposition: Home with Home Health Anticipated Discharge Date: Discharge Date: Expected LOS: Initial Reviewer: [email or web address] Initial Review Date: 07/03/2020 Generated: 07/05/20 5:08 pm Comments DCP- Discharge Planning Updated by [email or web address]: Domingo Stock on 07/05/20 3:[address] CM met with patient to complete DC plan and to evaluate needs. Patient lives at home with her daughter, Lindsey Mcintyre ([phone]). CM discussed availability of home health, rehab services, and medical equipment. Patient Declined Inpatient Rehab but would like to resume [facility]. Spoke with Thais at [facility], patient is current and on hold for hospitalization. Clinicals faxed to [facility]. GWENDOLYN refusal for inpatient rehab and acceptance of [facility] signed and placed on chart. Patient voiced no other needs at this time and is satisfied with DC plan. DC IMM delivered, explained, signed by the patient, and placed in chart. Signed form also left with the patient. CM will continue to follow and will assist as needed with dc plans/needs. DCPIA - Discharge Planning Initial Assessment Updated by [id number]: Domingo Stock on 07/05/20 3:39 pm * Is the patient Alert and Oriented? Yes * How many steps to enter\exit or inside your home? RAMP * PCP FARO * Pharmacy [facility] * Preadmission Environment Home with Family * ADLs Partial Dependent * Partial ADLs (Assistance needed) Ambulation Bathing Dressing Eating Medication Management Toileting Transfers * Equipment Walker * Other Equipment n/a * List name and contact numbers for known caregivers / representatives who currently or will assist patient after discharge: LINDSEY MCINTYRE (dtr) [phone] * Verbal permission to speak to the caregivers and representatives has been obtained from the patient. Yes * Community resources currently utilized Home Health * Please name any agencies selected above. [facility] * Additional services required to return to the preadmission environment? Yes * Can the patient safely return to the preadmission environment? Yes * Has this patient been hospitalized within the prior 30 days at any hospital? No External Providers External Provider[facility] [place] Next Contact Date: Service Request Date: Service Type: Resolution: Reviewer: Comments: Coverage Notice Reviewer: PATTI Stock Notice Issued Date-Time: 07/05/2020 15:25 Notice Type: IM Discharge Notice Notice Delivered To: Patient Relationship to Patient: Self Senior Consumer Insights Consultant Name: Delivery Method: HAND - Hand Delivered Sirena Days: Prior Verbal Notification: Recipient Understood Notice: Yes Recipient Signature: Yes Med Rec Note Co-signed by Attending: Coverage Notice Comment: DC IMM delivered, explained, signed by the patient, and placed in chart. Reviewer: PATTI Stock Notice Issued Date-Time: 07/05/2020 15:25 Notice Type: Patient Choice Letter Notice Delivered To: Patient Relationship to Patient: Self Senior Consumer Insights Consultant Name: Delivery Method: HAND - Hand Delivered Sirena Days: Prior Verbal Notification: Recipient Understood Notice: Yes Recipient Signature: Yes Med Rec Note Co-signed by Attending: Coverage Notice Comment: Margaret Valdovinos [facility] Last DP export: 07/05/20 2:44 p Patient Name: ADELFO DIALLO Page [phone] at 1609 All edits/amendments must be made on the electronic document DICTATION DATE: 07/05/20 160 TELEPHONE OPERATOR CHIEF: COOPER 07/05/20 1609 RPT#: [id number] DC DATE: STATUS: ADM IN [facility] [address] [place] [address] END OF REPORT
--- NOTE | 2020-07-05 18:45 | NUR ---
PATIENT REPOSITIONED AND SITTING UP IN BED. REMOVED IV BECAUSE LEAKING AFTER BLOOD COMPLETE. CATH TIP INTACT. NO COMPLAINTS OR SIGNS OF DISTRESS. FAMILYA TBEDSIDE. CALL LIGHT WITHIN REACH.
--- NOTE | 2020-07-05 20:01 | NUR ---
PATIENT DAUGHTER STATED SHE WANTED TO KNOW IF THE PATIENT COULD BE PLACED ON AND ANTIDEPRESSANT. EXPLAINED I WOULD TELL THE NIGHT NURSE TO LET THE DAY SHIFT KNOW TO SPEAK WITH THE PHYSICIAN.
--- NOTE | 2020-07-05 20:34 | NUR ---
RESITE PT IV TO LEFT FA, TOLERATED WELL, IV FLUIDS RUNNING AT 50ML/HR. CONTINUE WITH PLAN OF CARE
--- NOTE | 2020-07-06 01:42 | NUR ---
I have reviewed this patient and I concur with the Shift Assessment completed by the Licensed Practical Nurse today this shift.
--- NOTE | 2020-07-06 03:05 | NUR ---
PATIENT ASLEEP ON BACKSIDE, EASILY AWAKENED, NO NEEDS VOICED, CL IN REACH BED IN LOWEST POSITION, CONTINUE WITH PLAN OF CARE
--- NOTE | 2020-07-06 05:02 | NUR ---
CHANGED PT DRESSING TO RT FOOT, CLEANED WITH WOUND FOOD MANAGEMENT AIDE, APPLIED BETADINE, 4X4'S AND WRAPPED WITH KERLEX. ADMINISTERED SCHEDULED MEDS, NO OTHER NEEDS VOICED, CONTINUE WITH PLAN OF CARE
[2020-07-06 05:10] VITALS: BP 138/39
[2020-07-06 05:15] LABS: BASOPHILS 0.4 % (0-2); EOSINOPHILS 1.2 % (0-7); IMMATURE GRANULOCYTES 0.5 % (0-5); LYMPHOCYTE ABS# 1.49 10x3/uL (1.18-3.74); LYMPHOCYTES 8.4 % (15-50); MCH 28.4 pg (26.0-34.0); MCHC 29.9 g/dL (31.0-37.0); MEAN PLATELET VOLUME 9.4 fL (7.4-10.4); MONOCYTES 7.6 % (2-11); NEUTROPHIL ABS# 14.55 10x3/uL (1.56-6.13); NEUTROPHILS 81.9 % (40-80); PLATELET COUNT 471 10x3/uL (130-400); RDW 14.5 % (11.5-14.5); WBC 17.8 10x3/uL (4.8-10.8)
[2020-07-06 05:47] LABS: ALBUMIN 2.4 g/dL (3.4-5.0); ANION GAP 20.1 mmol/L (8-16); BILIRUBIN - TOTAL 0.5 mg/dL (0.2-1.3); CALCIUM 8.2 mg/dL (8.5-10.1); CARBON DIOXIDE 18.1 mmol/L (21.0-32.0); CREATININE - SERUM 2.3 mg/dL (0.6-1.3); MAGNESIUM - SERUM 2.7 mg/dL (1.8-2.4); POTASSIUM - SERUM 5.2 mmol/L (3.5-5.1); VANCOMYCIN - RANDOM 20.6 ug/mL (10.0-20.0)
[2020-07-06 05:53] LABS: HEMATOCRIT 28.8 % (36.0-48.0); HEMOGLOBIN 8.6 g/dL (12-16); RBC 3.03 10x6/uL (4.00-5.40)
--- NOTE | 2020-07-06 09:00 | NUR ---
ASSESSMENT PER FLOW SHEET. PATIENT IS WITHOUT DISTRESS.CALL LIGHT IN REACH.
[2020-07-06 09:12] VITALS: BP 160/54
[2020-07-06 09:12] LABS: ANA REFLEX - ANTICHROMATIN ABS 0.2 AI (0.0-0.9); ANA REFLEX - CENTROMERE B ABS <0.2 AI (0.0-0.9); ANA REFLEX - DBL STRANDED DNA 23 IU/mL (0-9); ANA REFLEX - DIRECT Positive (Negative); ANA REFLEX - JO-1 AB <0.2 AI (0.0-0.9); ANA REFLEX - RNP ANTIBODIES <0.2 AI (0.0-0.9); ANA REFLEX - SCL-70 <0.2 AI (0.0-0.9); ANA REFLEX - SJOGRENS AB SSA <0.2 AI (0.0-0.9); ANA REFLEX - SJOGRENS AB SSB <0.2 AI (0.0-0.9); ANA REFLEX - SMITH AB <0.2 AI (0.0-0.9)
[2020-07-06 13:11] LABS: SPE - A/G RATIO 0.8 (0.7-1.7); SPE - ALBUMIN 2.6 g/dL (2.9-4.4); SPE - ALPHA-1 GLOBULIN 0.4 g/dL (0.0-0.4); SPE - BETA GLOBULIN 0.8 g/dL (0.7-1.3); SPE - GAMMA GLOBULIN 0.9 g/dL (0.4-1.8); SPE - M-SPIKE Not Observed g/dL (Not Observed); SPE - TOTAL PROTEIN 5.7 g/dL (6.0-8.5)
[2020-07-06 13:19] VITALS: BP 129/33
--- NOTE | 2020-07-06 17:36 | NUR ---
OT NOTE: PT COMPLETED BED MOB TASKS WITH MAX A. PT COMPLETED EOB SITTING WITH MIN A. PT COMPLETED FACE HYGIENE WITH SETUP-MIN A. 1-124 THANK YOU,JOSE CURIEL
--- NOTE | 2020-07-06 19:15 | NUR ---
PT DAUGHTER AT BEDSIDE, REQUESTS THAT PT HAVE A BED BATH TONIGHT OR IN THE MORNING, STATES SHE HAS BEEN HERE SINCE SATURDAY AND STILL IN THE SAME CLOTHES. DAUGHTER WOULD ALSO LIKE DR CONTRERAS TO CALL HER IN REGARDS TO PLAN OF CARE, EXPLAINED DR CONTRERAS WAS HERE EARLY THIS MORNING BUT WILL LEAVE A MESSAGE FOR DR CONTRERAS TO TOUCH BASE WITH HER FIRST THING, WENT OVER THERAPY NOTES WITH BOTH DAUGHTERS PATIENT STATED THERAPY DID NOT WORK WITH HER TODAY. ALL QUESTIONS ANSWERED, WILL CONTINUE WITH PLAN OF CARE
[2020-07-06 20:00] VITALS: BP 127/45
--- NOTE | 2020-07-06 23:30 | NUR ---
I have reviewed this patient and I concur with the Shift Assessment completed by the Licensed Practical Nurse today this shift.
[2020-07-07] VITALS: BP 112/43
[2020-07-07 04:00] VITALS: BP 116/54
[2020-07-07 06:49] LABS: BASOPHILS 0.5 % (0-2); EOSINOPHILS 1.7 % (0-7); HEMATOCRIT 27.9 % (36.0-48.0); HEMOGLOBIN 8.3 g/dL (12-16); IMMATURE GRANULOCYTES 0.7 % (0-5); LYMPHOCYTE ABS# 1.38 10x3/uL (1.18-3.74); MCH 28.3 pg (26.0-34.0); MCHC 29.7 g/dL (31.0-37.0); MCV 95.2 fL (80.0-100.0); MEAN PLATELET VOLUME 9.3 fL (7.4-10.4); MONOCYTES 7.2 % (2-11); NEUTROPHIL ABS# 12.44 10x3/uL (1.56-6.13); NEUTROPHILS 80.9 % (40-80); PLATELET COUNT 430 10x3/uL (130-400); RBC 2.93 10x6/uL (4.00-5.40); RDW 14.4 % (11.5-14.5); WBC 15.4 10x3/uL (4.8-10.8)
[2020-07-07 06:55] LABS: ALBUMIN 2.1 g/dL (3.4-5.0); ANION GAP 16.1 mmol/L (8-16); BILIRUBIN - TOTAL 0.32 mg/dL (0.2-1.3); CARBON DIOXIDE 19.9 mmol/L (21.0-32.0); CREATININE - SERUM 2.3 mg/dL (0.6-1.3); MAGNESIUM - SERUM 2.7 mg/dL (1.8-2.4); PROTEIN - SERUM 5.7 g/dL (6.4-8.2); VANCOMYCIN - RANDOM 18.4 ug/mL (10.0-20.0)
--- NOTE | 2020-07-07 08:00 | NUR ---
ASSESSMENT PER FLOW SHEET. PATIENT IS WITHOUT DISTRESS. CALL LIGHT IN REACH
[2020-07-07 08:56] VITALS: BP 128/52
--- NOTE | 2020-07-07 09:52 | NUR ---
CALL FROM FAMILY,PASSWORD CONFIRED.. UPDATE GIVEN ON PT STATUS
--- NOTE | 2020-07-07 10:46 | NUR ---
Nutrition Follow-up: Diet: Renal ADA PO intake: 50-75% most meals. She complains that she does not like the food. States that she just figured out how to fill out her menu today so she is excited about the foods that she ordered for lunch and dinner today. She states that she feels "full" and does admit to constipation. She does not remember her last BM SUPERVISOR ADULT EDUCATION. Last BM: none recorded since admit. Wt: 278# (07/05/20) Meds noted: abx, SSI Labs noted: BUN 74(H), Cr 2.3(H), GFR 23(L), Glu 328(H), POC Glu 415(H) Skin: venous stasis to R foot Recommend continue current diet. RD will follow-up within 5 days.
[2020-07-07 12:29] VITALS: BP 115/36
[2020-07-07 15:12] LABS: ANCA - ANTIMYELOPEROXIDASE <9.0 U/mL (0.0-9.0); ANCA - ANTIPROTEINASE 3 8.4 U/mL (0.0-3.5)
[2020-07-07 16:09] LABS: ANTI-GLOMERULAR BASMENT MEMBRN QNS units (())
[2020-07-07 16:40] VITALS: BP 116/32
--- NOTE | 2020-07-07 16:42 | NUR ---
OT NOTE: PT LETHARGIC. PT REQUIRED MIN A FOR SIMPLE HYGIENE TASKS. ALESHA KHAN COTA
[2020-07-07 20:00] VITALS: BP 149/52
[2020-07-08] VITALS: BP 127/45
--- NOTE | 2020-07-08 01:13 | NUR ---
PT ON CL, C/O SOB AND UABLE TO BREATHE, CHECKED O2 AND SAT WAS 92% ON 2.5 L TURNED PT UP TO 3L ASKED COWORKER TO ASSIST IN PULLING PT UP IN BED, NO OTHER NEEDS VOICED, CL IN REACH EMPTIED 1200 FROM CATHETER. CONTINUE WITH PLAN OF CARE
--- NOTE | 2020-07-08 02:10 | NUR ---
I have reviewed this patient and I concur with the Shift Assessment completed by the Licensed Practical Nurse today this shift.
[2020-07-08 04:00] VITALS: BP 145/39
[2020-07-08 05:27] LABS: BASOPHILS 0.1 % (0-2); EOSINOPHILS 2.2 % (0-7); HEMATOCRIT 27.3 % (36.0-48.0); HEMOGLOBIN 8.2 g/dL (12-16); IMMATURE GRANULOCYTES 0.4 % (0-5); LYMPHOCYTE ABS# 1.65 10x3/uL (1.18-3.74); LYMPHOCYTES 10.5 % (15-50); MCH 28.2 pg (26.0-34.0); MCV 93.8 fL (80.0-100.0); MEAN PLATELET VOLUME 9.3 fL (7.4-10.4); MONOCYTES 6.7 % (2-11); NEUTROPHIL ABS# 12.53 10x3/uL (1.56-6.13); NEUTROPHILS 80.1 % (40-80); PLATELET COUNT 467 10x3/uL (130-400); RBC 2.91 10x6/uL (4.00-5.40); RDW 14.3 % (11.5-14.5); WBC 15.7 10x3/uL (4.8-10.8)
[2020-07-08 05:38] LABS: ALBUMIN 2.1 g/dL (3.4-5.0); ANION GAP 16.3 mmol/L (8-16); BILIRUBIN - TOTAL 0.44 mg/dL (0.2-1.3); CALCIUM 8.4 mg/dL (8.5-10.1); CARBON DIOXIDE 20.5 mmol/L (21.0-32.0); MAGNESIUM - SERUM 2.5 mg/dL (1.8-2.4); POTASSIUM - SERUM 4.8 mmol/L (3.5-5.1); PROTEIN - SERUM 6.2 g/dL (6.4-8.2); VANCOMYCIN - RANDOM 20.5 ug/mL (10.0-20.0)
--- NOTE | 2020-07-08 07:31 | NUR ---
PATIENT SLEEPING. LUNGS CLEAR BILATERALLY. HEART SOUNDS S1 AND S2 HEARD IN ALL DAVIDSON. BOWEL SOUNDS ACTIVE X 4. IV TO LFA PATENT WITHOUT REDNESS. CALL PACK AND PERSONAL ITEMS IN REACH. WILL CONTINUE TO MONITOR.
[2020-07-08 09:25] VITALS: BP 125/43
[2020-07-08 11:11] LABS: ANCA - ATYPICAL <1:20 titer (Neg:<1:20); ANCA - CYTOPLASMIC <1:20 titer (Neg:<1:20); ANCA - PERINUCLEAR <1:20 titer (Neg:<1:20)
[2020-07-08 13:32] VITALS: BP 121/44
--- NOTE | 2020-07-08 15:59 | NUR ---
OT NOTE: PT COMPLETED BUE AROM EXS . PT COMPLETED BUE EXERCISES WITH FOCUS TO FM SKILLS FOR INCREASED I WITH ADL TASKS. PT COMPLETED FACE AND HAND HYGIENE WITH SETUP. 150-085 THANK YOU, JOSE CURIEL
--- NOTE | 2020-07-08 16:18 | NUR ---
SLEEPING. WILL CONTINUE TO MONITOR.
[2020-07-08 17:11] VITALS: BP 136/49
--- NOTE | 2020-07-08 18:13 | NUR ---
PATIENT REQUESTING "MEDICATION TO HAVE BM". NIDA PULIDO PAGED. WAITING CALL BACK.
--- NOTE | 2020-07-08 19:45 | NUR ---
ASSISTED MACHINE SETTER SUPERVISOR WITH GETTING PT CLEANED UP, COLLECTED STOOL SPECIMEN ORDERED. REQUEST FROM DAUGHTER THAT PATIENT GET UP TO BEDSIDE COMMODE AFTER PHYSICAL THERAPY EVALUATION, ASSURED DAUGHTER I WILL PASS ALONG MESSAGE IN REPORT. NO OTHER NEEDS AT THIS TIME, CL IN REACH, CONTINUE WITH PLAN OF CARE
[2020-07-08 20:50] VITALS: BP 124/35
--- NOTE | 2020-07-08 23:18 | NUR ---
I have reviewed this patient and I concur with the Shift Assessment completed by the Licensed Practical Nurse today this shift.
[2020-07-09 01:28] VITALS: BP 126/39
--- NOTE | 2020-07-09 05:06 | NUR ---
REMOVED DRESSING TO PT RT FOOT, DRESSING SHOWED BLOODY DRAINAGE, CLEANED WOUND WITH WOUND ACOUSTIC WARFARE ANALYST AND PLACED 4X4 DAMPENED IN BETADINE ON WOUND THEN WRAPPED WITH KERLEX. PATIENT TOLERATED WELL SHE SLEPT THROUGH DRESSING CHANGE. EMPTIED KYLE WHICH CONTAINED 600, NO OTHER NEEDS AT THIS TIME. CONTINUE WITH PLAN OF CARE
[2020-07-09 06:17] VITALS: BP 112/38
[2020-07-09 06:49] LABS: BASOPHILS 0.2 % (0-2); EOSINOPHILS 3.3 % (0-7); HEMATOCRIT 26.3 % (36.0-48.0); IMMATURE GRANULOCYTES 0.6 % (0-5); LYMPHOCYTE ABS# 1.56 10x3/uL (1.18-3.74); LYMPHOCYTES 11.9 % (15-50); MCH 28.2 pg (26.0-34.0); MCHC 30.4 g/dL (31.0-37.0); MCV 92.6 fL (80.0-100.0); MONOCYTES 7.6 % (2-11); NEUTROPHIL ABS# 9.97 10x3/uL (1.56-6.13); NEUTROPHILS 76.4 % (40-80); PLATELET COUNT 436 10x3/uL (130-400); RBC 2.84 10x6/uL (4.00-5.40); RDW 14.2 % (11.5-14.5); WBC 13.1 10x3/uL (4.8-10.8)
[2020-07-09 07:31] LABS: ANION GAP 14.6 mmol/L (8-16); BILIRUBIN - TOTAL 0.4 mg/dL (0.2-1.3); CALCIUM 8.4 mg/dL (8.5-10.1); CARBON DIOXIDE 22.1 mmol/L (21.0-32.0); CREATININE - SERUM 1.7 mg/dL (0.6-1.3); MAGNESIUM - SERUM 2.7 mg/dL (1.8-2.4); POTASSIUM - SERUM 4.7 mmol/L (3.5-5.1); PROTEIN - SERUM 6.1 g/dL (6.4-8.2); VANCOMYCIN - RANDOM 20.3 ug/mL (10.0-20.0)
--- NOTE | 2020-07-09 07:58 | NUR ---
ALERT AND ORIENTED. LUNGS CLEAR BILATERALLY. HEART SOUNDS S1 AND S2 HEARD IN ALL DAVIDSON. BOWEL SOUNDS ACTIVE X 4. IV TO LFA PATENT WITHOUT REDNESS. DENIES NEEDS. BED LOW. CALL PACK AND PERSONAL ITEMS IN REACH. WILL CONTINUE TO MONITOR.
[2020-07-09 08:00] VITALS: BP 108/41
--- NOTE | 2020-07-09 10:51 | NUR ---
PT ATTEMPTED TO GET PATIENT OOB. PATIENT UNABLE TO BEAR ANY WEIGHT. ROM PERFORMED ON SIDE OF BED. ASSISTED BACK TO BED AND ADJUSTED IN BED.
[2020-07-09 13:18] VITALS: BP 117/39
[2020-07-09 18:12] VITALS: BP 155/48
--- NOTE | 2020-07-09 19:18 | NUR ---
PATIENT RESTING IN BED WITH NO S/S OF DISTRESS AND DENIES NEEDS AT THIS TIME. GUEST AT BEDSIDE. BED IN LOWEST POSITION AND CALL LIGHT WITHIN REACH. ENCOURAGED THE PATIENT TO CALL IF SHE HAS NEEDS.
[2020-07-09 20:32] VITALS: BP 138/38
--- NOTE | 2020-07-09 20:39 | NUR ---
ADMINISTERED MEDS PER ORDERS. PATIENT RIVER WELL. ENCOURAGED TO CALL IF SHE HAS NEEDS.
[2020-07-10 00:35] VITALS: BP 130/42
[2020-07-10 04:30] VITALS: BP 127/48
[2020-07-10 08:40] VITALS: BP 117/43
--- NOTE | 2020-07-10 09:15 | NUR ---
CHANGED, CLEANED AND REPOSITIONED PATIENT. CHANGED SHEETS AND GOWN. PATIENT POSITIONED ON SIDE WITH HEELS FLOATING. IV AND KYLE INTACT. CALL IGHT WITHIN REACH.
--- NOTE | 2020-07-10 09:30 | NUR ---
CHANGED PATIENTS DRESSING AT THIS TIME. CLEANED WOUND WITH WOUND FOREST PRACTICES FIELD COORDINATOR. SMALL AMOUNT OF YELLOW DRAINAGE ON OLD BANDAGE. USED BETADINE AND SALINE FOR WET TO DRY DRESSING. WRAPPED WITH KERLIX. PATIENT TOLERATED WITH SMALL AMOUNT OF PAIN. CALL LIGHT WITHIN REACH.
[2020-07-10 10:48] LABS: BASOPHILS 0.2 % (0-2); EOSINOPHILS 3.4 % (0-7); HEMATOCRIT 25.5 % (36.0-48.0); HEMOGLOBIN 7.9 g/dL (12-16); IMMATURE GRANULOCYTES 0.6 % (0-5); LYMPHOCYTE ABS# 1.69 10x3/uL (1.18-3.74); LYMPHOCYTES 12.1 % (15-50); MCH 28.7 pg (26.0-34.0); MCV 92.7 fL (80.0-100.0); MEAN PLATELET VOLUME 8.6 fL (7.4-10.4); MONOCYTES 6.8 % (2-11); NEUTROPHIL ABS# 10.76 10x3/uL (1.56-6.13); NEUTROPHILS 76.9 % (40-80); PLATELET COUNT 381 10x3/uL (130-400); RBC 2.75 10x6/uL (4.00-5.40); RDW 14.2 % (11.5-14.5)
[2020-07-10 11:26] LABS: ANION GAP 12.2 mmol/L (8-16); BILIRUBIN - TOTAL 0.43 mg/dL (0.2-1.3); CALCIUM 8.4 mg/dL (8.5-10.1); CARBON DIOXIDE 22.5 mmol/L (21.0-32.0); CREATININE - SERUM 1.6 mg/dL (0.6-1.3); PHOSPHOROUS 3.3 mg/dL (2.5-4.9); POTASSIUM - SERUM 4.7 mmol/L (3.5-5.1)
--- NOTE | 2020-07-10 12:20 | NUR ---
SAT PATIENT UP IN BED TO EAT AT THIS TIME. NO COMPLAINTS AT THIS TIME. DENIES ANY NEEDS. CALL LIGHT WITHIN REACH.
[2020-07-10 15:33] VITALS: BP 121/46
--- NOTE | 2020-07-10 16:31 | NUR ---
PATIENT IN BED WITH IV INTACT. EYES CLOSED RESTING QUIETLY AT THIS TIME. KYLE INTACT. CALL LIGHT WITHIN REACH.
--- NOTE | 2020-07-10 16:36 | NUR ---
PATIENT IN BED WITH EYES CLOSED RESTING QUIETLY. CALL LIGHT WITHIN REACH.
--- NOTE | 2020-07-10 17:34 | NUR ---
PATIENT ASSISTED WITH DINNER. SAT PATIENT UP IN BED AND RAISED HOB. DENIES ANY OTHER NEEDS AT THIS TIME. CALL LIGHT WITHIN REACH.
[2020-07-10 18:20] VITALS: BP 105/41
--- NOTE | 2020-07-10 19:21 | NUR ---
PATIENT RESTING IN BED WITH NO S/S OF DISTRESS AND GUEST AT BEDSIDE. PATIENT DENIES NEEDS AT THIS TIME. BED IN LOWEST POSITION AND CALL LIGHT WITHIN REACH. ENCOURAGED THE PATIENT TO CALL IF SHE HAS NEEDS.
[2020-07-10 20:00] VITALS: BP 110/72
--- NOTE | 2020-07-10 20:44 | NUR ---
ADMINISTERED MEDS PER ORDERS. PATIENT RIVER WELL. ENCOURAGED TO CALL IF PATIENT HAS NEEDS.
[2020-07-11 00:38] VITALS: BP 147/57
[2020-07-11 04:30] VITALS: BP 152/51
[2020-07-11 06:54] LABS: ALBUMIN 2.1 g/dL (3.4-5.0); ANION GAP 10.1 mmol/L (8-16); BILIRUBIN - TOTAL 0.35 mg/dL (0.2-1.3); CALCIUM 8.6 mg/dL (8.5-10.1); CARBON DIOXIDE 23.8 mmol/L (21.0-32.0); CREATININE - SERUM 1.4 mg/dL (0.6-1.3); POTASSIUM - SERUM 4.9 mmol/L (3.5-5.1); PROTEIN - SERUM 6.3 g/dL (6.4-8.2)
[2020-07-11 06:58] LABS: BASOPHILS 0.1 % (0-2); HEMATOCRIT 27.2 % (36.0-48.0); HEMOGLOBIN 8.2 g/dL (12-16); IMMATURE GRANULOCYTES 0.4 % (0-5); LYMPHOCYTE ABS# 1.45 10x3/uL (1.18-3.74); LYMPHOCYTES 10.1 % (15-50); MCH 28.2 pg (26.0-34.0); MCHC 30.1 g/dL (31.0-37.0); MCV 93.5 fL (80.0-100.0); MEAN PLATELET VOLUME 9.2 fL (7.4-10.4); MONOCYTES 6.8 % (2-11); NEUTROPHIL ABS# 11.28 10x3/uL (1.56-6.13); NEUTROPHILS 78.6 % (40-80); RBC 2.91 10x6/uL (4.00-5.40); RDW 14.1 % (11.5-14.5); WBC 14.4 10x3/uL (4.8-10.8)
[2020-07-11 07:24] LABS: PLATELET COUNT 458 10x3/uL (130-400)
--- NOTE | 2020-07-11 09:00 | NUR ---
ASSESSMENT PER FLOW SHEET. PATIENT IS WITHOUT DISTRESS.FALL PREVENTION WITH BED ALARM. DOOR OPEN
[2020-07-11 09:12] VITALS: BP 150/59
[2020-07-11 12:05] VITALS: BP 143/67
--- NOTE | 2020-07-11 15:31 | NUR ---
OT NOTE: PT PERFORMED MUCH BETTER TODAY. PT STATED THAT SHE HAD ANXIETY ATTACK LAST NIGHT BECAUSE SHE WAS WANTING TO GET OUT OF BED AND COULDNT. ASSISTED PT WITH BED MOB REQUIREING MOD ASSIST. EOB SITTING WITH GOOD BALANCE. RECEIVED ASSIST FROM [employer], AND WE WERE ABLE TO STAND WITH PT WITH MOD ASSIST AND SHE WAS ABLE TO TAKE 4-5 STEPS TO TRANSFER TO CHAIR. PROVIDED CHAIR ALARM AND CUSHION FOR COMFORT. PT TOLERATED SITTING UP IN CHAIR FOR APPROX 2 HRS. ABLE TO TRANSFER BACK INTO BED WITH WALKER AND MIN/MOD ASSIST X 2; SIT TO SUPINE WITH MIN ASSIST. WHILE UP IN CHAIR, PT WAS ABLE TO PERFORM SIMPLE GROOMING TASKS WITH SET UP; ABLE TO GLEN GOWN WITH MIN ASSIST; REQUIRES EXT ASSIST WITH DONNING SOCKS. RASHEL MELENDEZ, OTR/L
[2020-07-11 16:24] VITALS: BP 143/49
--- NOTE | 2020-07-11 16:30 | NUR ---
VERY TIRED WITH SOME SHORTNESS OF BREATH. PATIENT REFUSED 1500 BREATHING TX. CALL FOR TX. PATIENT REFUSES TO GET OOB FOR DINNER. CONT PLAN OF CARE
[2020-07-11 20:00] VITALS: BP 156/57
--- NOTE | 2020-07-11 23:52 | NUR ---
I have reviewed this patient and I concur with the Shift Assessment completed by the Licensed Practical Nurse today this shift.
[2020-07-12] VITALS: BP 126/52
[2020-07-12 04:00] VITALS: BP 125/50
[2020-07-12 07:16] LABS: BASOPHILS 0.3 % (0-2); EOSINOPHILS 3.3 % (0-7); HEMATOCRIT 28.7 % (36.0-48.0); HEMOGLOBIN 8.7 g/dL (12-16); IMMATURE GRANULOCYTES 0.4 % (0-5); LYMPHOCYTE ABS# 1.67 10x3/uL (1.18-3.74); LYMPHOCYTES 10.6 % (15-50); MCH 28.3 pg (26.0-34.0); MCHC 30.3 g/dL (31.0-37.0); MCV 93.5 fL (80.0-100.0); MEAN PLATELET VOLUME 9.2 fL (7.4-10.4); MONOCYTES 7.3 % (2-11); NEUTROPHIL ABS# 12.26 10x3/uL (1.56-6.13); NEUTROPHILS 78.1 % (40-80); PLATELET COUNT 453 10x3/uL (130-400); RBC 3.07 10x6/uL (4.00-5.40); WBC 15.7 10x3/uL (4.8-10.8)
[2020-07-12 07:26] LABS: ALBUMIN 2.2 g/dL (3.4-5.0); ANION GAP 12.5 mmol/L (8-16); BILIRUBIN - TOTAL 0.4 mg/dL (0.2-1.3); CALCIUM 8.9 mg/dL (8.5-10.1); CARBON DIOXIDE 23.5 mmol/L (21.0-32.0); CREATININE - SERUM 1.3 mg/dL (0.6-1.3); PROTEIN - SERUM 6.6 g/dL (6.4-8.2); VANCOMYCIN - RANDOM 13.7 ug/mL (10.0-20.0)
--- NOTE | 2020-07-12 08:00 | NUR ---
ASSESSMENT PER FLOW SHEET. PATIENT IS WITHOUT DISTRESS.CALL LIGHT IN REACH
[2020-07-12 08:47] VITALS: BP 135/42
--- NOTE | 2020-07-12 11:00 | NUR ---
CALLED TO ROOM BY DULCE MICHEL. KYLE BAG LEAKING AFTER CXR DONE.
[2020-07-12 11:26] VITALS: BP 116/39
--- NOTE | 2020-07-12 14:19 | NUR ---
Nutrition Follow-up: Possible BKA if family/pt agree- per MD notes. Diet: Renal ADA PO intake: ~63% average x last 6 meals. Today she ate 100% of breakfast and 75% of lunch meal. She states that her appetite has improved as her clarity of mind has improved. She states that she DOES NOT like Ashu and that she would not drink it. Last BM: 07/10/20. 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 RD will follow-up 07/15/20.
--- NOTE | 2020-07-12 15:11 | NUR ---
URINE TO LAB
--- NOTE | 2020-07-12 15:24 | NUR ---
OT NOTE: PT PERFORMED WELL TODAY; STATED THAT SHE WAS NOT FEELING WELL BUT WAS AGREEABLE TO SIT UP ON EOB. FEEDING WITH SET UP; SIMPLE GROOMING WITH SET UP; MAX ASSIST TO GLEN SOCKS; MIN ASSIST TO GLEN GOWN; SIT TO STAND WITH MIN/MOD ASSIST AND USE OF WALKER; ABLE TO TAKE A FEW STEPS TO CHAIR WITH WALKER; TRANSFER INTO CHAIR WITH MIN ASSIST. EDUCATED PT ON UE/LE EXS WHILE UP IN CHAIR; PT ABLE TO DEMONSTRATE WITHOUT DIFFICULTY. RASHEL MELENDEZ, OTR/L
[2020-07-12 15:53] LABS: BILIRUBIN NEGATIVE (NEGATIVE); KETONE NEGATIVE (NEGATIVE); NITRITE NEGATIVE (NEGATIVE); UROBILINOGEN NORMAL mg/dL (< 2)
[2020-07-12 15:54] LABS: WHITE CELLS - URINE 0-5 HPF (0-4)
[2020-07-12 15:55] LABS: BACTERIA FEW HPF (NONE SEEN); SQUAMOUS EPITHELIAL 0-5 HPF (0-4)
--- NOTE | 2020-07-12 16:09 | NUR ---
OT NOTE: PT COMPLETED SIT TO STAND WITH MOD A. PT COMPLETED CHAIR TO BED TSF WITH MIN A. PT REQUIRED MOD-MAX A WITH LE MANAGEMENT FOR SIT TO SUPINE. [phone] THANK YOU,JOSE CURIEL
[2020-07-12 17:55] VITALS: BP 132/47
[2020-07-12 20:00] VITALS: BP 155/46
--- NOTE | 2020-07-12 20:00 | NUR ---
PT SITTING UP IN BED WITHOUT DISTRESS, AOX4. DAUGHTER AT BEDSIDE. DENIES NEEDS AT THIS TIME. CL IN REACH, BED ALARM ON
--- NOTE | 2020-07-12 21:30 | NUR ---
FSBS 265, COVERAGE PER SS. PT PROVIDED FRESH ICE WATER. STATES RIGHT FOOT IS ACHING, GAVE TYLENOL ORDERED FOR PAIN. DENIES OTHER NEEDS. CL IN REACH
[2020-07-13] VITALS: BP 139/45
--- NOTE | 2020-07-13 01:00 | NUR ---
PT ACCIDENTALLY PULLED IV OUT WITH CATH INTACT. SITED NEW 20G IV TO LEFT FA. RIGHT FOOT DRESSING CHANGED AT THIS TIME. PT GIVEN BED BATH. DENIES OTHER NEEDS. CL IN REACH, BED ALARM ON
[2020-07-13 03:58] VITALS: BP 111/52
[2020-07-13 06:54] LABS: BASOPHILS 0.2 % (0-2); EOSINOPHILS 3.4 % (0-7); HEMATOCRIT 28.6 % (36.0-48.0); HEMOGLOBIN 8.5 g/dL (12-16); IMMATURE GRANULOCYTES 0.5 % (0-5); LYMPHOCYTE ABS# 1.79 10x3/uL (1.18-3.74); MCH 28.1 pg (26.0-34.0); MCHC 29.7 g/dL (31.0-37.0); MCV 94.7 fL (80.0-100.0); MEAN PLATELET VOLUME 9.4 fL (7.4-10.4); MONOCYTES 8.1 % (2-11); NEUTROPHIL ABS# 11.31 10x3/uL (1.56-6.13); NEUTROPHILS 75.8 % (40-80); PLATELET COUNT 456 10x3/uL (130-400); RBC 3.02 10x6/uL (4.00-5.40); RDW 14.2 % (11.5-14.5); WBC 14.9 10x3/uL (4.8-10.8)
[2020-07-13 07:00] LABS: ALBUMIN 2.1 g/dL (3.4-5.0); ANION GAP 12.1 mmol/L (8-16); BILIRUBIN - TOTAL 0.39 mg/dL (0.2-1.3); CALCIUM 8.3 mg/dL (8.5-10.1); CARBON DIOXIDE 25.4 mmol/L (21.0-32.0); CREATININE - SERUM 1.2 mg/dL (0.6-1.3); POTASSIUM - SERUM 5.5 mmol/L (3.5-5.1); PROTEIN - SERUM 5.7 g/dL (6.4-8.2); VANCOMYCIN - RANDOM 11.5 ug/mL (10.0-20.0)
--- NOTE | 2020-07-13 08:00 | NUR ---
ASSESSMENT PER FLOW SHEET. PATIENT IS WITHOUT DISTRESS.MONITOR
[2020-07-13 08:18] VITALS: BP 123/31
--- NOTE | 2020-07-13 11:03 | NUR ---
HAS BEEN POSITIONED ON LEFT SIDE FOR COMFORT.
[2020-07-13 12:25] VITALS: BP 137/89
--- NOTE | 2020-07-13 13:15 | NUR ---
ASSIST WITH MEAL SET UP
[2020-07-13 15:12] LABS: ANCA - ANTIMYELOPEROXIDASE <9.0 U/mL (0.0-9.0); ANCA - ANTIPROTEINASE 3 5.2 U/mL (0.0-3.5); ANCA - ATYPICAL <1:20 titer (Neg:<1:20); ANCA - CYTOPLASMIC <1:20 titer (Neg:<1:20); ANCA - PERINUCLEAR <1:20 titer (Neg:<1:20)
--- NOTE | 2020-07-13 16:36 | NUR ---
OT NOTE: PT COMPLETED BED MOB WITH SBA. PT COMPLETED BUE AROM EXS TOLERATED. [phone] THANK YOU,JOSE CURIEL
[2020-07-13 16:40] VITALS: BP 162/57
--- NOTE | 2020-07-13 19:18 | NUR ---
PT SITTING UP IN BED WITHOUT DISTRESS, AOX4. FAMILY AT BEDSIDE. DENIES NEEDS AT THIS TIME. CL IN REACH, BED ALARM ON
[2020-07-13 20:00] VITALS: BP 140/43
--- NOTE | 2020-07-13 21:15 | NUR ---
FSBS 314, 20 UNITS GIVEN PER SS, SEE MAR. PROVIDE WATER. REPOSITIONED IN BED. DENIES OTHER NEEDS. CL IN REACH, BED ALARM ON
[2020-07-14] VITALS: BP 126/47
[2020-07-14 04:00] VITALS: BP 122/60; BP 139/61
[2020-07-14 06:33] LABS: BASOPHILS 0.3 % (0-2); EOSINOPHILS 3.8 % (0-7); HEMATOCRIT 28.7 % (36.0-48.0); HEMOGLOBIN 8.5 g/dL (12-16); IMMATURE GRANULOCYTES 0.4 % (0-5); LYMPHOCYTE ABS# 1.53 10x3/uL (1.18-3.74); LYMPHOCYTES 10.9 % (15-50); MCH 27.8 pg (26.0-34.0); MCHC 29.6 g/dL (31.0-37.0); MCV 93.8 fL (80.0-100.0); MEAN PLATELET VOLUME 9.3 fL (7.4-10.4); MONOCYTES 7.8 % (2-11); NEUTROPHIL ABS# 10.79 10x3/uL (1.56-6.13); NEUTROPHILS 76.8 % (40-80); PLATELET COUNT 479 10x3/uL (130-400); RBC 3.06 10x6/uL (4.00-5.40); WBC 14.1 10x3/uL (4.8-10.8)
[2020-07-14 06:54] LABS: ALBUMIN 2.3 g/dL (3.4-5.0); ANION GAP 11.4 mmol/L (8-16); BILIRUBIN - TOTAL 0.37 mg/dL (0.2-1.3); CALCIUM 8.5 mg/dL (8.5-10.1); CREATININE - SERUM 1.3 mg/dL (0.6-1.3); POTASSIUM - SERUM 5.4 mmol/L (3.5-5.1); VANCOMYCIN - RANDOM 15.9 ug/mL (10.0-20.0)
[2020-07-14 10:19] VITALS: BP 131/45
[2020-07-14 12:10] VITALS: BP 153/53
--- NOTE | 2020-07-14 14:05 | NUR ---
PATIENT O2 SAT 93% TO 94% AT REST AND WHEN UP WITH WALKER ON 3L NC.
--- NOTE | 2020-07-14 15:37 | NUR ---
OT NOTE: BED MOB WITH SBA AND USE OF BED RAILS; GOOD STATIC SITTING BALANCE; SIT TO STAND WITH WALKER AND MIN ASSIST. PT ONLY ABLE TO TAKE A FEW STEPS. ABLE TO PERFORM TRANSFERS WITH WALKER AND MIN ASSIST. 02 SATS REMAIN ABOVE 93% DURING MOBILITY. ABLE TO PERFORM SIT TO SUPINE WITHOUT ASSIST. PERFORMING GROOMING AND FEEDING WITH SET UP. RASHEL MELENDEZ, OTR/L
--- NOTE | 2020-07-14 16:18 | NUR ---
OT NOTE: PT COMPLETED SUPINE TO SIT WITH MIN A. PT COMPLETED BED TO CHAIR TSF WITH CGA-MIN WITH RW. [phone] THANK YOU,JOSE CURIEL
--- NOTE | 2020-07-14 16:27 | NUR ---
IV SITED TO RIGHT WRIST WITH 22 GAUGE AFTER THREE ATTEMPTS AND TWO NURSES.
--- NOTE | 2020-07-14 19:00 | NUR ---
BEDSIDE REPORT RECEIVED AND CARE OF PT ASSUMED. PT LYING IN LOW CROW'S POSITION. IV TO RIGHT WRIST SALINE LOCKED. TELEMETRY IN USE AND READING 62 SR AT THIS ASSESSMENT. KYLE CATHETER DRAINING TO GRAVITY WITH YELLOW URINE IN COLLECTION BAG. DRESSING ON RIGHT FOOT CLEAN, DRY AND INTACT. WILL MONITOR FOR NEEDS.
[2020-07-14 20:00] VITALS: BP 113/43
--- NOTE | 2020-07-14 20:39 | NUR ---
HS MEDICATIONS GIVEN. FSBS 328 THIS CHECK REQUIRING COVERAGE WITH 20 UNITS INSULIN PER SLIDING SCALE. PT DECLINED HS SNACK AT THIS TIME.
[2020-07-15] VITALS: BP 139/47
[2020-07-15 04:00] VITALS: BP 141/47
[2020-07-15 05:23] LABS: BASOPHILS 0.2 % (0-2); EOSINOPHILS 3.7 % (0-7); HEMATOCRIT 29.3 % (36.0-48.0); HEMOGLOBIN 8.6 g/dL (12-16); IMMATURE GRANULOCYTES 0.3 % (0-5); LYMPHOCYTES 10.8 % (15-50); MCH 27.6 pg (26.0-34.0); MCHC 29.4 g/dL (31.0-37.0); MCV 93.9 fL (80.0-100.0); MEAN PLATELET VOLUME 9.5 fL (7.4-10.4); MONOCYTES 8.3 % (2-11); NEUTROPHIL ABS# 10.68 10x3/uL (1.56-6.13); NEUTROPHILS 76.7 % (40-80); PLATELET COUNT 453 10x3/uL (130-400); RBC 3.12 10x6/uL (4.00-5.40); WBC 13.9 10x3/uL (4.8-10.8)
[2020-07-15 05:37] LABS: ALBUMIN 2.1 g/dL (3.4-5.0); ANION GAP 9.6 mmol/L (8-16); BILIRUBIN - TOTAL 0.43 mg/dL (0.2-1.3); CALCIUM 8.6 mg/dL (8.5-10.1); CARBON DIOXIDE 26.5 mmol/L (21.0-32.0); CREATININE - SERUM 1.4 mg/dL (0.6-1.3); POTASSIUM - SERUM 5.1 mmol/L (3.5-5.1); PROTEIN - SERUM 6.4 g/dL (6.4-8.2); VANCOMYCIN - RANDOM 16.1 ug/mL (10.0-20.0)
--- NOTE | 2020-07-15 07:25 | NUR ---
SLEEPING. LUNGS DIMINISHED BILATERALLY. HEART SOUNDS S1 AND S2 HEARD IN ALL DAVIDSON. BOWEL SOUND ACTIVE X 4. IV TO RIGHT WRIST PATENT WITHOUT REDNESS. BED LOW. CALL PACK AND PERSONAL ITEMS IN REACH. WILL CONTINUE TO MONITOR.
[2020-07-15 08:45] VITALS: BP 130/49
[2020-07-15 11:59] VITALS: BP 110/80
--- NOTE | 2020-07-15 12:12 | NUR ---
PATIENT'S DAUGHTER LINDSEY CALLED CONCERNED ABOUT PATIENT DISCHARGING TODAY. STATES PATIENT HAS HOME [facility]ATLH FOR WOUND CARE BUT WILL NEED TO KEEP KYLE IF CANNOT WALK BY HERSELF. ALSO WANTS TO CLARIFY IF PATIENT WILL BE DISCHARGING ON ABX. NO DISCHARGE ORDER AT THIS TIME. CALCULUS PROFESSOR RASHEL NOTIFIED OF DAUGHTER'S CONCERS AND STATES WILL SPEAK WITH BENCH TECHNICIAN.
--- NOTE | 2020-07-15 14:28 | NUR ---
DRSG CHANGED TO RIGHT FOOT PER ORDER.
--- NOTE | 2020-07-15 14:32 | NUR ---
OT NOTE: PT MUCH MORE LETHARGIC TODAY. REPORTED THAT SHE FELT VERY TIRED BUT UNSURE TO WHY. PT SLOW TO GET TO EOB SITTING REQUIRING MOD ASSIST. GOOD BALANCE WITH STATIC SITTING, HOWEVER, PT CONTINUALLY LEANING FORWARD ON WALKER. PROVIDED PT WITH BRUSH AND WASH CLOTH, SHE WAS ABLE TO PERFORM GROOMING TASKS WITH SET UP; FEEDING WITH SET UP; SIT TO STAND WITH MOD ASSIST AND USE OF WALKER; ABLE TO TAKE 4-5 SIDE STEPS WITH WALKER, HOWEVER, THERAPIST HESITANT TO GET PT UP TO CHAIR DUE TO INCREASED LETHARGY. PRACTICED SIT TO SUPINE AND BED MOB WITHOUT ASSIST BUT WITH VERBAL CUES FOR POSITIONING RASHEL MELENDEZ, OTR/L [phone]
--- NOTE | 2020-07-15 15:16 | NUR ---
OT NOTE: PT COMPLETED BED MOB WITH MIN-MOD A. PT COMPLETED WITH FACE HYGIENE WITH SETUP. THANK YOU,JOSE CURIEL
--- NOTE | 2020-07-15 15:37 | NUR ---
Nutrition Follow-up: Renal signed off. Debridment of toenails today. Possible DC with home health today. Diet: Renal ADA Diet PO intake: ~67% average x last 9 meals recorded. Patient states "I dont want to eat." Last BM: 07/10/20. Wt: 294.3# (07/12/20) Meds noted: SSI, lantus, abx, miralax Labs noted: BUN 24(H), Cr 1.4(H), GFR 40(L), POC Glu 208(H), Alb 2.1(L) Wounds to right foot. Patient declined BKA recommended by ortho. Recommend MD to consider liberalizing diet to Diabetic 2/2 K WNL now and no longer in renal failure (per nephrology notes). Encouraged PO intake. RD will follow-up within 3-4 days if still admitted.
--- NOTE | 2020-07-15 16:14 | MORECARE ---
CASE MANAGEMENT DISCHARGE SUMMARY PATIENT: ADLEFO DIALLO UNIT: [id number] ADM DATE: 07/03/20 AGE: 64 : 57 SEX: F ROOM/BED: D.2223 AUTHOR: MELISSA,DOC PHYSICIAN: REFERRING PHYSICIAN: BRIGIDA PATTERSON DO DATE OF SERVICE: 07/15/20 Discharge Plan Patient Name: ADELFO DIALLO Facility: [facility]:[place] : 1955 Planned Disposition: Home with Home Health Anticipated Discharge Date: Discharge Date: Expected LOS: Initial Reviewer: [email or web address] Initial Review Date: 07/03/2020 Generated: 07/15/20 5:13 pm DCP- Discharge Planning Updated by [email or web address]: Domingo Stock on 07/05/20 3:[address] CM met with patient to complete DC plan and to evaluate needs. Patient lives at home with her daughter, Lindsey Mcintyre ([phone]). CM discussed availability of home health, rehab services, and medical equipment. Patient Declined Inpatient Rehab but would like to resume [facility]. Spoke with Thais at [facility], patient is current and on hold for hospitalization. Clinicals faxed to [facility]. GWENDOLYN refusal for inpatient rehab and acceptance of [facility] signed and placed on chart. Patient voiced no other needs at this time and is satisfied with DC plan. DC IMM delivered, explained, signed by the patient, and placed in chart. Signed form also left with the patient. CM will continue to follow and will assist as needed with dc plans/needs. DCPIA - Discharge Planning Initial Assessment Updated by [email or web address]: Domingo Stock on 07/05/20 3:39 pm * Is the patient Alert and Oriented? Yes * How many steps to enter\exit or inside your home? RAMP * PCP FARO * Pharmacy [facility] * Preadmission Environment Home with Family * ADLs Partial Dependent * Partial ADLs (Assistance needed) Ambulation Bathing Dressing Eating Medication Management Toileting Transfers * Equipment Walker * Other Equipment n/a * List name and contact numbers for known caregivers / representatives who currently or will assist patient after discharge: LINDSEY MCINTYRE (dtr) [phone] * Verbal permission to speak to the caregivers and representatives has been obtained from the patient. Yes * Community resources currently utilized Home Health * Please name any agencies selected above. [facility] * Additional services required to return to the preadmission environment? Yes * Can the patient safely return to the preadmission environment? Yes * Has this patient been hospitalized within the prior 30 days at any hospital? No External Providers External Provider: Memo Stephenson Contact Date: Service Request Date: Service Type: Resolution: Reviewer: Comments: Coverage Notice Reviewer: PATTI Stock Notice Issued Date-Time: 07/05/2020 15:25 Notice Type: IM Discharge Notice Notice Delivered To: Patient Relationship to Patient: Self Facility Service Associate Name: Delivery Method: HAND - Hand Delivered Sirena Days: Prior Verbal Notification: Recipient Understood Notice: Yes Recipient Signature: Yes Med Rec Note Co-signed by Attending: Coverage Notice Comment: DC IMM delivered, explained, signed by the patient, and placed in chart. Reviewer: [email or web address] Stock Notice Issued Date-Time: 07/05/2020 15:25 Notice Type: Patient Choice Letter Notice Delivered To: Patient Relationship to Patient: Self Facility Service Associate Name: Delivery Method: HAND - Hand Delivered Sirena Days: Prior Verbal Notification: Recipient Understood Notice: Yes Recipient Signature: Yes Med Rec Note Co-signed by Attending: Coverage Notice Comment: [facility] Last DP export: 07/05/20 3:09 p Patient Name: ADELFO DIALLO Page [id number] at 1614 All edits/amendments must be made on the electronic document DICTATION DATE: 07/15/20 161 BEEF GRINDER: COOPER 07/15/20 161 RPT#: [id number] DC DATE: STATUS: ADM IN [facility] [address] [place] [address] END OF REPORT
--- NOTE | 2020-07-15 16:24 | MORECARE ---
CASE MANAGEMENT DISCHARGE SUMMARY PATIENT: ADELFO DIALLO UNIT: [id number] ADM DATE: 07/03/20 AGE: 64 : 57 SEX: F ROOM/BED: D.2223 AUTHOR: MELISSA,DOC PHYSICIAN: REFERRING PHYSICIAN: BRIGIDA PATTERSON DO DATE OF SERVICE: 07/15/20 Discharge Plan Patient Name: ADELFO DIALLO Facility: [facility]:[place] : 1955 Planned Disposition: Home with Home Health Anticipated Discharge Date: Discharge Date: Expected LOS: Initial Reviewer: [email or web address] Initial Review Date: 07/03/2020 Generated: 07/15/20 5:23 pm Comments DCP- Discharge Planning Updated by [email or web address]: Kahtie Plascencia on 07/15/20 3:[address] Patient Name: ADELFO DIALLO Admission Status: ER Accout number: [id number] Admission Date: 07-03-2020 : 1955 Admission Diagnosis:INFCT FOL A PROCEDURE, DEEP INCISIONAL SURGICAL SITE, I Attending: BRIGIDA PATTERSON Current LOS: 12 Anticipated DC Date: Planned Disposition: Home with Home Health Primary Insurance: [facility] MEDICARE SOLUTIONS Discharge Planning Comments: SPOKE WITH NIDA BOWSER AND PATIENT IS NOT MEDICALLY READY TO DC. WHITE COUNT IS STILL ELEVATED AND CXR PENDING. [facility] WILL DELIVER HER OXYGEN TO HER ROOM TODAY AND [facility] WILL SEE HER WHEN SHE IS DISCHARGED. CM TO FOLLOW AND ASSIST NEEDED. Medical Asst: Kathie Plascencia DCP- Discharge Planning Updated by [id number]: Domingo Stock on 07/05/20 3:[address] CM met with patient to complete DC plan and to evaluate needs. Patient lives at home with her daughter, Lindsey Rendon ([phone]). CM discussed availability of home health, rehab services, and medical equipment. Patient Declined Inpatient Rehab but would like to resume [facility]. Spoke with Thais at [facility], patient is current and on hold for hospitalization. Clinicals faxed to [facility]. GWENDOLYN refusal for inpatient rehab and acceptance of Resuming [facility] signed and placed on chart. Patient voiced no other needs at this time and is satisfied with DC plan. DC IMM delivered, explained, signed by the patient, and placed in chart. Signed form also left with the patient. CM will continue to follow and will assist as needed with dc plans/needs. DCPIA - Discharge Planning Initial Assessment Updated by PATTI: Domingo Stock on 07/05/20 3:39 pm * Is the patient Alert and Oriented? Yes * How many steps to enter\exit or inside your home? RAMP * PCP FARO * Pharmacy [facility] * Preadmission Environment Home with Family * ADLs Partial Dependent * Partial ADLs (Assistance needed) Ambulation Bathing Dressing Eating Medication Management Toileting Transfers * Equipment Walker * Other Equipment n/a * List name and contact numbers for known caregivers / representatives who currently or will assist patient after discharge: LINDSEY FRANCISCO JAVIER (dtr) [phone] * Verbal permission to speak to the caregivers and representatives has been obtained from the patient. Yes * Community resources currently utilized Home Health * Please name any agencies selected above. [facility] * Additional services required to return to the preadmission environment? Yes * Can the patient safely return to the preadmission environment? Yes * Has this patient been hospitalized within the prior 30 days at any hospital? No Coverage Notice Reviewer: PATTI Stock Notice Issued Date-Time: 07/05/2020 15:25 Notice Type: IM Discharge Notice Notice Delivered To: Patient Relationship to Patient: Self Tool Room Supervisor Name: Delivery Method: HAND - Hand Delivered Sirena Days: Prior Verbal Notification: Recipient Understood Notice: Yes Recipient Signature: Yes Med Rec Note Co-signed by Attending: Coverage Notice Comment: DC IMM delivered, explained, signed by the patient, and placed in chart. Reviewer: [email or web address] Stock Notice Issued Date-Time: 07/05/2020 15:25 Notice Type: Patient Choice Letter Notice Delivered To: Patient Relationship to Patient: Self Tool Room Supervisor Name: Delivery Method: HAND - Hand Delivered Sirena Days: Prior Verbal Notification: Recipient Understood Notice: Yes Recipient Signature: Yes Med Rec Note Co-signed by Attending: Coverage Notice Comment: Resume [facility] Last DP export: 07/15/20 3:14 p Patient Name: ADELFO DIALLO Page [phone] at 1624 All edits/amendments must be made on the electronic document DICTATION DATE: 07/15/201623 SNAKER DRIVING HORSES: COOPER 07/15/201623 RPT#: [id number] DC DATE: STATUS: ADM IN [facility] [address] [place] [address] END OF REPORT
[2020-07-15 17:28] VITALS: BP 142/48
--- NOTE | 2020-07-15 20:30 | NUR ---
RESTING QUEITLY. AROUSES TO VERBAL STIMULI. SL TO RIGHT WRIST INTACT WITHOUT REDNESS OR EDEMA NOTED. DRESSING TO RIGHT FOOT INTACT WITHOUT DRAINAGE NOTED. NO COMPLAINTS AT PRESENT. CL IN REACH
[2020-07-15 20:43] VITALS: BP 149/46
--- NOTE | 2020-07-15 23:42 | NUR ---
I have reviewed this patient and I concur with the Shift Assessment completed by the Licensed Practical Nurse today this shift.
[2020-07-16 00:59] VITALS: BP 113/43
--- NOTE | 2020-07-16 03:00 | NUR ---
I have reviewed this patient and I concur with the Shift Assessment completed by the Licensed Practical Nurse today this shift.
[2020-07-16 05:18] VITALS: BP 113/77
[2020-07-16 06:06] LABS: BASOPHILS 0.3 % (0-2); EOSINOPHILS 2.3 % (0-7); HEMATOCRIT 31.1 % (36.0-48.0); HEMOGLOBIN 9.3 g/dL (12-16); IMMATURE GRANULOCYTES 0.3 % (0-5); LYMPHOCYTE ABS# 0.96 10x3/uL (1.18-3.74); LYMPHOCYTES 8.1 % (15-50); MCH 27.8 pg (26.0-34.0); MCHC 29.9 g/dL (31.0-37.0); MCV 92.8 fL (80.0-100.0); MEAN PLATELET VOLUME 9.4 fL (7.4-10.4); MONOCYTES 7.9 % (2-11); NEUTROPHIL ABS# 9.56 10x3/uL (1.56-6.13); NEUTROPHILS 81.1 % (40-80); PLATELET COUNT 437 10x3/uL (130-400); RBC 3.35 10x6/uL (4.00-5.40); WBC 11.8 10x3/uL (4.8-10.8)
[2020-07-16 06:35] LABS: ALBUMIN 2.4 g/dL (3.4-5.0); ANION GAP 11.2 mmol/L (8-16); BILIRUBIN - TOTAL 0.58 mg/dL (0.2-1.3); CALCIUM 8.7 mg/dL (8.5-10.1); CARBON DIOXIDE 26.9 mmol/L (21.0-32.0); CREATININE - SERUM 1.2 mg/dL (0.6-1.3); POTASSIUM - SERUM 5.1 mmol/L (3.5-5.1); PROTEIN - SERUM 6.4 g/dL (6.4-8.2); VANCOMYCIN - RANDOM 14.7 ug/mL (10.0-20.0)
--- NOTE | 2020-07-16 07:29 | NUR ---
PATIENT IN BED SLEEPING, FREE FROM SIGNS OF DISTRESS. CALL LIGHT IN REACH. BED LOW POSITION, WILL CONTINUE TO MONITOR.
[2020-07-16 08:26] VITALS: BP 176/62
[2020-07-16 10:53] LABS: ERYTHROCYTE SEDIMENTATION RATE 82 mm/hr (0-30)
[2020-07-16 11:57] VITALS: BP 134/41
[2020-07-16 16:52] VITALS: BP 126/57
[2020-07-16 20:00] VITALS: BP 157/57
--- NOTE | 2020-07-16 20:45 | NUR ---
RESTING QUEITY WITH NO DISTRESS NOTED. RESP UNLABORED. CL IN REACH
[2020-07-17] VITALS: BP 112/58
--- NOTE | 2020-07-17 03:00 | NUR ---
I have reviewed this patient and I concur with the Shift Assessment completed by the Licensed Practical Nurse today this shift.
[2020-07-17 04:00] VITALS: BP 164/61
[2020-07-17 06:00] LABS: BILIRUBIN NEGATIVE (NEGATIVE); KETONE NEGATIVE (NEGATIVE); NITRITE NEGATIVE (NEGATIVE); UROBILINOGEN NORMAL mg/dL (< 2)
[2020-07-17 06:11] LABS: BASOPHILS 0.5 % (0-2); EOSINOPHILS 0.4 % (0-7); HEMATOCRIT 28.3 % (36.0-48.0); HEMOGLOBIN 8.4 g/dL (12-16); IMMATURE GRANULOCYTES 0.2 % (0-5); LYMPHOCYTE ABS# 1.29 10x3/uL (1.18-3.74); LYMPHOCYTES 13.1 % (15-50); MCH 27.4 pg (26.0-34.0); MCHC 29.7 g/dL (31.0-37.0); MCV 92.2 fL (80.0-100.0); MEAN PLATELET VOLUME 9.3 fL (7.4-10.4); MONOCYTES 11.4 % (2-11); NEUTROPHIL ABS# 7.33 10x3/uL (1.56-6.13); NEUTROPHILS 74.4 % (40-80); PLATELET COUNT 410 10x3/uL (130-400); RBC 3.07 10x6/uL (4.00-5.40); RDW 14.1 % (11.5-14.5); WBC 9.9 10x3/uL (4.8-10.8)
[2020-07-17 06:56] LABS: ALBUMIN 2.3 g/dL (3.4-5.0); ANION GAP 12.4 mmol/L (8-16); BILIRUBIN - TOTAL 0.39 mg/dL (0.2-1.3); CALCIUM 8.2 mg/dL (8.5-10.1); CARBON DIOXIDE 26.6 mmol/L (21.0-32.0); CREATININE - SERUM 1.3 mg/dL (0.6-1.3); PROTEIN - SERUM 6.1 g/dL (6.4-8.2)
[2020-07-17 07:01] LABS: VANCOMYCIN - RANDOM 14.3 ug/mL (10.0-20.0)
--- NOTE | 2020-07-17 07:27 | NUR ---
RESTING IN BED WITH EYES OPEN, ALERT AND ORIENTED. CURRENTLY RCVING 2L VIA NC. IV LOCATED TO RIGHT WRIST CURRENTLY SL. KYLE PRESENT. NO CURRENT S/S OF DISTRESS, WILL CONT TO MONITOR.
[2020-07-17 08:41] VITALS: BP 140/49
[2020-07-17 13:29] VITALS: BP 155/48
[2020-07-17 15:24] VITALS: BP 146/46
[2020-07-17 20:00] VITALS: BP 140/50
--- NOTE | 2020-07-17 20:30 | NUR ---
AROUSES TO TO VERBAL STIMULI.RESP UNLABORED. NO DISTRESS NOTED. O2 @ 2L PER NC ON. KYLE PATENT AND DRAINING YELLOW URINE. CL IN REACH
--- NOTE | 2020-07-17 23:18 | NUR ---
I have reviewed this patient and I concur with the Shift Assessment completed by the Licensed Practical Nurse today this shift.
[2020-07-18 03:58] VITALS: BP 146/42
[2020-07-18 04:00] VITALS: BP 147/46
[2020-07-18 06:47] LABS: BASOPHILS 0.4 % (0-2); EOSINOPHILS 0.1 % (0-7); HEMATOCRIT 28.1 % (36.0-48.0); HEMOGLOBIN 8.1 g/dL (12-16); IMMATURE GRANULOCYTES 0.3 % (0-5); LYMPHOCYTE ABS# 1.29 10x3/uL (1.18-3.74); LYMPHOCYTES 17.9 % (15-50); MCH 27.2 pg (26.0-34.0); MCHC 28.8 g/dL (31.0-37.0); MEAN PLATELET VOLUME 9.5 fL (7.4-10.4); MONOCYTES 11.7 % (2-11); NEUTROPHILS 69.6 % (40-80); PLATELET COUNT 382 10x3/uL (130-400); RBC 2.98 10x6/uL (4.00-5.40); RDW 14.1 % (11.5-14.5)
[2020-07-18 06:52] LABS: MCV 94.3 fL (80.0-100.0); WBC 7.2 10x3/uL (4.8-10.8)
--- NOTE | 2020-07-18 07:08 | NUR ---
PATIENT IN BED RESTING. AROUSES TO VOICE, DENIES NEEDS AT THIS TIME. BED LOW POSITION, CALL LIGHT IN REACH. WILL COTNINUE TO MONITOR.
[2020-07-18 07:11] LABS: ALBUMIN 2.2 g/dL (3.4-5.0); BILIRUBIN - TOTAL 0.36 mg/dL (0.2-1.3); CALCIUM 8.4 mg/dL (8.5-10.1); CARBON DIOXIDE 26.9 mmol/L (21.0-32.0); CREATININE - SERUM 1.4 mg/dL (0.6-1.3); POTASSIUM - SERUM 4.9 mmol/L (3.5-5.1); PROTEIN - SERUM 6.5 g/dL (6.4-8.2); VANCOMYCIN - RANDOM 15.2 ug/mL (10.0-20.0)
--- NOTE | 2020-07-18 08:48 | NUR ---
RIGHT WRIST IV INFILTRATED. REMOVED IV. PATIENT TOLLERATED WELL. SWITCHED IV FLUIDS TO LEFT WRIST IV.
[2020-07-18 09:22] VITALS: BP 174/69
--- NOTE | 2020-07-18 12:40 | NUR ---
OT NOTE: PT SEEN IN AM.. VERY LETHARGIC.. PT WAS LAST SEEN BY THIS THERAPIST LAST SAT, AND WAS VERY LETHARGIC AT THAT TIME ALSO. SPOKE WITH Pradeep RAY WHO REPORTED THAT PT WAS VERY LETHARGIC OVER THE WEEKEND AND HE DIDNT FEEL THAT SHE WOULD BE SAFE UP IN THE CHAIR. PT BARELY ABLE TO KEEP HER EYES OPEN. UPON FIRST ENTERING ROOM, HER CANUALA WAS HANGING BELOW HER NOSE AND HER SATS WERE IN THE LOW 80S..INFORMED NURSING WHO CALLED RT AND INSTRUCTED TO INCREASE 02 TO 5L VS 3L. AFTER SEVERAL MIN AND CUES FOR BREATHING TECH, HER SATS INCREASED TO 94%..ASSISTED PT TO SITTING POSITION ON EOB WITH MOD ASSIST. PT MUCH WEAKER TODAY THAN LAST WEEK. REQUIRED MOD ASSIST TO MAINTAIN STATIC SITTING ON EOB. REQUIRED MOD/MAX ASSIST FOR STATIC SITTING WHILE WASHING HER FACE. FREQ CUES REQUIRED TO KEEP HER EYES OPEN. O2 SATS REMAINED IN THE MID 90S BUT STILL VERY LETHARGIC. BACK TO BED WITH MOD ASSIST AND MAX ASSIST X 2 FOR POSITIONING UP IN BED AND ROLLING SIDE TO SIDE. INFORMED COMMERCIAL LOAN CLOSER OF PTS CHANGE IN FUNCTION OVER THE LAST SEVERAL DAYS. RASHEL MELENDEZ, OTR/L [phone]
[2020-07-18 14:27] VITALS: BP 162/62
--- NOTE | 2020-07-18 16:55 | NUR ---
OT NOTE: PT COMPLETED BED MOB TASKS WITH MOD A X2. PT COMPLETED EOB SITTING WITH CGA. PT COMPLETED HAIR GROOMING WITH SETUP. PT COMPLETED FACE HYGIENE WITH SETUP. [phone] THANK YOU,JOSE CURIEL
[2020-07-18 18:21] VITALS: BP 154/56
--- NOTE | 2020-07-18 19:30 | NUR ---
CO OF SOME PAIN IN FOOT WILL SEE ABOUT PRN FOR PAIN
[2020-07-18 20:00] VITALS: BP 123/45
--- NOTE | 2020-07-18 21:18 | NUR ---
RESTING AND EASILY AROUSED STATES PAIN IS MUCH BETTER
[2020-07-19 04:00] VITALS: BP 121/46
--- NOTE | 2020-07-19 06:00 | NUR ---
I have reviewed this patient and I concur with the Shift Assessment completed by the Licensed Practical Nurse today this shift.
[2020-07-19 08:23] LABS: BASOPHILS 0.2 % (0-2); EOSINOPHILS 0.2 % (0-7); HEMATOCRIT 28.5 % (36.0-48.0); HEMOGLOBIN 8.4 g/dL (12-16); IMMATURE GRANULOCYTES 0.2 % (0-5); LYMPHOCYTE ABS# 1.32 10x3/uL (1.18-3.74); MCH 27.8 pg (26.0-34.0); MCHC 29.5 g/dL (31.0-37.0); MCV 94.4 fL (80.0-100.0); MEAN PLATELET VOLUME 9.6 fL (7.4-10.4); MONOCYTES 7.6 % (2-11); NEUTROPHIL ABS# 7.36 10x3/uL (1.56-6.13); NEUTROPHILS 77.8 % (40-80); PLATELET COUNT 364 10x3/uL (130-400); RBC 3.02 10x6/uL (4.00-5.40); RDW 14.4 % (11.5-14.5)
[2020-07-19 08:27] LABS: ALBUMIN 2.3 g/dL (3.4-5.0); ANION GAP 12.6 mmol/L (8-16); BILIRUBIN - TOTAL 0.34 mg/dL (0.2-1.3); CALCIUM 8.3 mg/dL (8.5-10.1); CARBON DIOXIDE 25.6 mmol/L (21.0-32.0); CREATININE - SERUM 1.4 mg/dL (0.6-1.3); POTASSIUM - SERUM 5.2 mmol/L (3.5-5.1); PROTEIN - SERUM 6.1 g/dL (6.4-8.2); VANCOMYCIN - RANDOM 14.9 ug/mL (10.0-20.0)
[2020-07-19 08:48] LABS: WBC 9.5 10x3/uL (4.8-10.8)
[2020-07-19 09:27] VITALS: BP 151/49
[2020-07-19 12:38] LABS: BILIRUBIN NEGATIVE (NEGATIVE); KETONE NEGATIVE (NEGATIVE); NITRITE NEGATIVE (NEGATIVE); UROBILINOGEN NORMAL mg/dL (< 2)
--- NOTE | 2020-07-19 15:15 | NUR ---
Nutrition Follow-up/Re-assessment: Diet: Renal ADA PO intake: ~17% average x last 6 meals. She seems very sleepy and confused today. She states that her appetite is poor. Last BM: 07/10/20 (per EMR), patient states that she had a BM today Wt: 294.3# (07/12/20)- no new weight Meds noted: SSI, lantus, vancomycin, miralax Labs noted: K 5.2(H), BUN 34(H), Cr 1.4(H), GFR 40(L), POC Glu 147(H), Alb 2.3 Skin: open wound to foot requiring frequent debridement Estimated nutrition needs: -Energy: 1475-1775cal (25-30kcal/kg IBW) -Protein: 52-69gms (0.6-0.8gms/kg) -Fluid: 1775-2150mL (or per MD) Nutrition diagnosis: Inadequate energy intake r/t inadequate PO intake AEB PO intake only ~17% average x last 6 meals. Recommend: -Continue current diet. -Will add Nepro TID with meals for now. Noted low GFR and Nepro is high in protein, however patient is eating very little at this time and needs protein for wound healing. If PO intake increase and patient is drinking oral nutrition supplement may change to Suplena. -Encouraged PO intake and explained to her that it is important for wound healing. -Will continue to monitor PO intake and wt trend. -RD will follow-up 07/22/20.
--- NOTE | 2020-07-19 15:50 | NUR ---
OT NOTE: PT AGAIN VERY LETHARGIC TODAY.. DIFFICULTY KEEPING HER EYES OPEN. REQUIRED MAX ASSIST X 2 FOR ALL BED MOB INCLUDING ROLLING, MAINTAINING SIDELYING, AND ATTEMPTS FOR SUPINE TO SIT. PERFORMED FULL BATH WITH PT, HOWEVER, SHE WAS ABLE TO WASH FACE, HANDS, AND CHEST WITH SET UP WITH FREQ CUES TO KEEP EYES OPEN..REQUIRED MAX ASSIST FOR REMAINDER OF BATHING.. LINENS ALSO CHANGED FOLLOWING BATHING. PT WAS ORIENTED TO SELF, PLACE, MONTH, DATE, BUT SHE IS SO LETHARGIC SHES NOT INITIATING ANY ADL TASKS. ATTEMPTED UE AROM EXS , BUT ENDED UP BEING A/AROM EXS.. PT HAS BEEN MUCH WORSE OVER THE LAST SEVERAL DAYS. WORKING TOWARDS GETTING PT UP TO EOB AND TRANSFERRING TO BS COMMODE WE WERE SEVERAL WEEKS AGO. CONT WITH CURRENT TMT PLAN. RASHEL MELENDEZ, OTR/L [phone]
--- NOTE | 2020-07-19 16:36 | NUR ---
OT NOTE: PT IS WEAK AND FATIGUED. NURSING AWARE. PT WILL REQUIRE ASSISTANCE WITH SELF FEEDING. NURSING NOTIFIED. PT REQUIRED MAX A X2 FOR BED MOB TASKS SIDE ROLLING. PT COMPLETED UB/LB BATHING TASKS WITH TOTAL A SECONDARY TO INCREASED LETHARGY. PT REQUIRED TOTAL A WITH NAIL HYGIENE. PT REQUIRED MAX - TOTAL A FOR LB HYGIENE TASKS SECONDARY TO LOOSE BM AND INCREASED FATIGUE. PT REQUIRED MAX A FOR BED MOB TASKS. NOTIFIED NURSING THAT PT IS WEAK. [phone] ALESHA KHAN COTA
[2020-07-19 18:06] VITALS: BP 159/56
[2020-07-19 18:43] VITALS: BP 166/57
[2020-07-19 20:00] VITALS: BP 149/48
--- NOTE | 2020-07-19 21:17 | NUR ---
PATIENT LYING SEMI FOWLERS AAOX4, RESP EVEN AND NON LABORED, NO S/S OF DISTRESS, MEDICATIONS ADMINISTERED WITHOUT COMPLICATIONS, NO FURTHER NEEDS AT THIS TIME, CLIR, BLP
[2020-07-20 04:00] VITALS: BP 167/56
--- NOTE | 2020-07-20 06:15 | NUR ---
I have reviewed this patient and I concur with the Shift Assessment completed by the Licensed Practical Nurse today this shift.
[2020-07-20 06:52] LABS: ALBUMIN 2.3 g/dL (3.4-5.0); ANION GAP 10.8 mmol/L (8-16); BILIRUBIN - TOTAL 0.45 mg/dL (0.2-1.3); CALCIUM 7.9 mg/dL (8.5-10.1); CARBON DIOXIDE 28.2 mmol/L (21.0-32.0); CREATININE - SERUM 1.3 mg/dL (0.6-1.3); PROTEIN - SERUM 6.3 g/dL (6.4-8.2)
[2020-07-20 06:59] LABS: BASOPHILS 0.2 % (0-2); EOSINOPHILS 0 % (0-7); HEMATOCRIT 29.3 % (36.0-48.0); HEMOGLOBIN 8.6 g/dL (12-16); IMMATURE GRANULOCYTES 0.4 % (0-5); LYMPHOCYTE ABS# 0.95 10x3/uL (1.18-3.74); LYMPHOCYTES 9.7 % (15-50); MCH 27.7 pg (26.0-34.0); MCHC 29.4 g/dL (31.0-37.0); MCV 94.2 fL (80.0-100.0); MEAN PLATELET VOLUME 9.9 fL (7.4-10.4); MONOCYTES 5.6 % (2-11); NEUTROPHIL ABS# 8.24 10x3/uL (1.56-6.13); NEUTROPHILS 84.1 % (40-80); PLATELET COUNT 334 10x3/uL (130-400); RBC 3.11 10x6/uL (4.00-5.40); RDW 14.2 % (11.5-14.5); WBC 9.8 10x3/uL (4.8-10.8)
--- NOTE | 2020-07-20 08:42 | NUR ---
RESTING IN BED, NO DISTRESS NOTED, SL IN PLACE, CONT TO MONITOR SUGARS, TELE SHOWING SR, KYLE TO GRAVITY, CONT TO MONITOR O2 AT 15L
[2020-07-20 09:38] VITALS: BP 176/62
[2020-07-20 09:48] LABS: C-REACTIVE PROTEIN 11.9 mg/dL (0.0-0.9)
[2020-07-20 10:59] VITALS: BP 176/62
--- NOTE | 2020-07-20 12:00 | NUR ---
COVID SWABS DONE AND SENT TO LAB, REPORT CALLED TO ROMAN RN, PT TO TRANSFER TO ROOM 2119, TAKEN PER BED
[2020-07-20 12:43] LABS: SARS-CoV-2 ANTIGEN POSITIVE- SARS-COV-2 (NEGATIVE)
[2020-07-20 13:03] LABS: ERYTHROCYTE SEDIMENTATION RATE 75 mm/hr (0-30)
--- NOTE | 2020-07-20 13:18 | NUR ---
PT'S COVID TEST RESULTS CALLED IN POSITIVE. CONOR ALVA NOTIFIED.
--- NOTE | 2020-07-20 14:16 | NUR ---
PATIENT REFUSING BIPAP AT THIS TIME. STATES IT SUFFOCATES HER. ROSCOE OWENS NOTIFIED
--- NOTE | 2020-07-20 16:11 | NUR ---
DAUGHTER LINDSEY CALLED AND UPDATE GIVEN. SOMEWHAT UPSET ABOUT NO CALL WHEN PT WAS MOVED TO ROOM OVER HERE. TRIED TO RECOVER SERVICE AND INSTILL CONFIDENCE IN CARE. NUMBER UNDER EMERGENCY CONTACT.
[2020-07-20 20:00] VITALS: BP 153/53
--- NOTE | 2020-07-20 23:30 | NUR ---
PHARMACY CLOSED, REMDESIVIR NOT AVAILABLE UNTIL PHARMACY RE-OPENS IN THE MORNING, WILL CALL PHARMACY IN AM TO OBTAIN MEDICATION.
--- NOTE | 2020-07-21 01:03 | NUR ---
SPOKE WITH YEN IN LAB ABOUT FFP ORDERED, PT CURRENTLY DOES NOT HAVE T&S, YEN STATED THAT INVOICING MACHINE OPERATOR WILL DRAW WITH AM LABS, AND THEY MIGHT HAVE TO ORDER FFP DEPENDING ON PTS BLOOD TYPE.
--- NOTE | 2020-07-21 03:28 | NUR ---
I have reviewed this patient and I concur with the Shift Assessment completed by the Licensed Practical Nurse today this shift.
[2020-07-21 04:00] VITALS: BP 143/42
[2020-07-21 05:21] LABS: BASOPHILS 0.1 % (0-2); EOSINOPHILS 0 % (0-7); HEMATOCRIT 29.9 % (36.0-48.0); HEMOGLOBIN 8.7 g/dL (12-16); IMMATURE GRANULOCYTES 0.4 % (0-5); LYMPHOCYTE ABS# 0.81 10x3/uL (1.18-3.74); LYMPHOCYTES 11.9 % (15-50); MCH 27.2 pg (26.0-34.0); MCHC 29.1 g/dL (31.0-37.0); MCV 93.4 fL (80.0-100.0); MEAN PLATELET VOLUME 9.8 fL (7.4-10.4); NEUTROPHIL ABS# 5.53 10x3/uL (1.56-6.13); NEUTROPHILS 81.6 % (40-80); PLATELET COUNT 328 10x3/uL (130-400)
[2020-07-21 05:28] LABS: WBC 6.8 10x3/uL (4.8-10.8)
[2020-07-21 05:40] LABS: BILIRUBIN - TOTAL 0.36 mg/dL (0.2-1.3); CALCIUM 8.1 mg/dL (8.5-10.1); CARBON DIOXIDE 31.4 mmol/L (21.0-32.0); CREATININE - SERUM 1.3 mg/dL (0.6-1.3); POTASSIUM - SERUM 4.4 mmol/L (3.5-5.1); PROTEIN - SERUM 6.2 g/dL (6.4-8.2)
[2020-07-21 08:49] VITALS: BP 152/56
--- NOTE | 2020-07-21 16:00 | NUR ---
OT NOTE: PT REQUIRED MOD A FOR BED MOB TASKS FOR SIDE TO SIDE. PT IS EASILY FATIGUED. PT COMPLETED FACE HYGIENE WITH SETUP. [phone] ALESHA KHAN COTA
[2020-07-21 17:25] VITALS: BP 152/53
[2020-07-21 21:49] VITALS: BP 144/52
[2020-07-22 00:39] VITALS: BP 155/53
--- NOTE | 2020-07-22 04:39 | NUR ---
PT ALERT/O X4 WITH LETHRAGY. PT PLASMA STARTED AT THIS TIME WITH STABLE VSS. O2-96% 7L HIGHFLOW. PT SLOW IN VERBAL RESPONSE B UT ANSWERS QUESTIONS CORRECTLY. PT STATES SHE FEELS VERY TIRED. PT DENIES ANY PAIN OR FURTHER NEEDS AT THIS TIME. BED LOW CALL LIGHT WITHIN REACH WILL CONTINUE TO MONITOR.
[2020-07-22 05:31] VITALS: BP 154/70
--- NOTE | 2020-07-22 05:47 | NUR ---
CHANGED PT'S DRSG TO RIGHT FOOT STATES IN ORDERS. DRSG IS C/D/I. FLUSHED PT'S KYLE WITH 10ML NS. LOTS OF WHITE SEDIMENT IN TUBING. OFF GOING NURSE STATES THE TIP OF KYLE WAS CLOGGED AND A NEW ONE INSERTED. FLUSH TO KEEP FROM CLOG. WILL CONTINUE TO MONITOR.
[2020-07-22 06:16] LABS: BASOPHILS 0.1 % (0-2); EOSINOPHILS 0 % (0-7); HEMOGLOBIN 9.3 g/dL (12-16); IMMATURE GRANULOCYTES 0.5 % (0-5); LYMPHOCYTE ABS# 0.86 10x3/uL (1.18-3.74); LYMPHOCYTES 8.6 % (15-50); MCH 27.2 pg (26.0-34.0); MCHC 29.1 g/dL (31.0-37.0); MCV 93.6 fL (80.0-100.0); MEAN PLATELET VOLUME 9.8 fL (7.4-10.4); MONOCYTES 5.3 % (2-11); NEUTROPHILS 85.5 % (40-80); PLATELET COUNT 327 10x3/uL (130-400); RBC 3.42 10x6/uL (4.00-5.40); RDW 14.1 % (11.5-14.5)
[2020-07-22 06:29] LABS: ALBUMIN 2.1 g/dL (3.4-5.0); ANION GAP 9.3 mmol/L (8-16); BILIRUBIN - TOTAL 0.42 mg/dL (0.2-1.3); CALCIUM 8.5 mg/dL (8.5-10.1); CARBON DIOXIDE 32.2 mmol/L (21.0-32.0); CREATININE - SERUM 1.4 mg/dL (0.6-1.3); POTASSIUM - SERUM 4.5 mmol/L (3.5-5.1); PROTEIN - SERUM 6.5 g/dL (6.4-8.2)
--- NOTE | 2020-07-22 07:03 | NUR ---
I have reviewed this patient and I concur with the Shift Assessment completed by the Licensed Practical Nurse today this shift.
[2020-07-22 07:22] LABS: MAGNESIUM - SERUM 2.3 mg/dL (1.8-2.4); PHOSPHOROUS 2.2 mg/dL (2.5-4.9)
[2020-07-22 09:21] VITALS: BP 149/75
--- NOTE | 2020-07-22 12:00 | NUR ---
ALERT WITH CONFUSION NOTED. ABLE TO FOLLOW VERBAL COMMANDS. 02 12L HI FLOW N/C AND HAS TO BE REMINDED FREQUENTLY TO LEAVE OXYGEN ON DUE TO DESATURATION OF O2 TO 70'S BUT WILL RETURN TO 94% WHEN ON. 2ND UNIT PLASMA INFUSING AT PRESCRIBED RATE WITH NO S/S OF REACTION NOTED. ENCOURAGED TO USE CALLL LIGHT FOR ASSIST.
--- NOTE | 2020-07-22 12:53 | NUR ---
Nutrition Follow-up: Pt in droplet isolation; covid-19+. ST following. INDEPENDENT PRODUCER reports no over s/s of aspiration but did not want to eat today. Diet: Renal ADA, Mech Soft, Nepro TID Wt: 294.3# (07/12) Last BM: / per chart Labs noted: K+ 4.5, BUN 35, Cre 1.4, GFR 40, Glu 203, PO4 2.2, Alb 2.1 Meds noted: Florajen, Colace, Protonix, Decadron, Lantus, Humulin, zinc sulfate, vit C, vit D, electrolyte protocol -Encourage PO intake and honor food preferences within diet preferences. -Need new wt. -RD will follow up within 4-5 days.
--- NOTE | 2020-07-22 12:56 | NUR ---
OT NOTE: PT COMPLETED BUE AAROM TOLERATED. PT COMPLETED BED MOB WITH MOD-MAX A. PT O2 SATS ARE VARIABLE WITH ACTIVITY. NURSING AWARE. [phone] THANK YOU,JOSE CURIEL
[2020-07-22 15:29] VITALS: BP 130/70
--- NOTE | 2020-07-22 19:54 | NUR ---
INITIAL ROUNDS AND ASSESSMENT COMPLETED. PT RESTING IN BED. GARBLED/SLOW SPEECH. DRESSING INTACT TO RIGHT FOOT. IVF NS @ KVO INFUSINGN TO RIGHT WRIST. SHALLOW RESPIRATIONS/MILD SOB WITH O2 PER HFNC. CURRENTLY RT IN ROOM. CALL LIGHT IN REACH. RETURNED CALL TO PATIENT'S DAUGHTER, LINDSEY. UPDATE PROVIDED.
[2020-07-22 20:00] VITALS: BP 170/64
--- NOTE | 2020-07-22 22:23 | NUR ---
BEDTIME MEDS GIVEN. FSBS 264, SLIDING SCALE AND LANTUS BOTH ADMINISTERED. PT CLEAN/DRY. DIMMED LIGHTS TO ROOM FOR HER TO REST.
[2020-07-23] VITALS: BP 150/69
--- NOTE | 2020-07-23 02:53 | NUR ---
NO DISTRESS. RESTING WITH EYES CLOSED. CALL LIGHT IN REACH.
[2020-07-23 04:00] VITALS: BP 186/73
--- NOTE | 2020-07-23 06:06 | NUR ---
ROUSED UP EASILY FOR AM MEDS. CLEAN/DRY AND RESTING. SR UP X 2, CALL LIGHT IN REACH.
[2020-07-23 08:00] VITALS: BP 128/74
[2020-07-23 08:32] LABS: BASOPHILS 0.2 % (0-2); EOSINOPHILS 0 % (0-7); HEMATOCRIT 33.7 % (36.0-48.0); HEMOGLOBIN 9.9 g/dL (12-16); IMMATURE GRANULOCYTES 1.3 % (0-5); LYMPHOCYTE ABS# 0.63 10x3/uL (1.18-3.74); LYMPHOCYTES 10.1 % (15-50); MCH 27.3 pg (26.0-34.0); MCHC 29.4 g/dL (31.0-37.0); MCV 93.1 fL (80.0-100.0); MEAN PLATELET VOLUME 10.2 fL (7.4-10.4); MONOCYTES 7.2 % (2-11); NEUTROPHIL ABS# 5.04 10x3/uL (1.56-6.13); NEUTROPHILS 81.2 % (40-80); PLATELET COUNT 324 10x3/uL (130-400); RBC 3.62 10x6/uL (4.00-5.40)
[2020-07-23 08:48] LABS: WBC 6.2 10x3/uL (4.8-10.8)
[2020-07-23 08:56] LABS: ANION GAP 9.6 mmol/L (8-16); BILIRUBIN - TOTAL 0.49 mg/dL (0.2-1.3); CALCIUM 8.4 mg/dL (8.5-10.1); CARBON DIOXIDE 30.7 mmol/L (21.0-32.0); CREATININE - SERUM 1.1 mg/dL (0.6-1.3); POTASSIUM - SERUM 4.3 mmol/L (3.5-5.1); PROTEIN - SERUM 6.4 g/dL (6.4-8.2)
[2020-07-23 11:30] VITALS: BP 130/72
--- NOTE | 2020-07-23 12:30 | NUR ---
CLEANED PT UP AGAIN FROM SMALL INCONT EPISODE. PT REFUSED TO EAT LUNCH AT THIS TIME. ALL NEEDS MET, CALL LIGHT IN REACH.
--- NOTE | 2020-07-23 12:57 | NUR ---
CLEANED PT UP FROM INCONT EPISODE. ALSO PROVIDED DRESSING CHANGE TO RT FOOT. TO TOLERATED WELL. PT DENIES ANY NEEDS AT THIS TIME, CALL LIGHT IN REACH.
[2020-07-23 15:00] VITALS: BP 126/73
--- NOTE | 2020-07-23 15:22 | NUR ---
UPDATED PT'S DAUGHTER LINDSEY MCINTYRE ON PT'S PLAN OF CARE AND CONDITION.
--- NOTE | 2020-07-23 20:00 | NUR ---
INITIAL ROUNDS AND ASSESSMENT COMPLETED. NO DISTRESS. RESTING IN BED. CALL LIGHT IN REACH.
[2020-07-23 20:30] VITALS: BP 152/77
--- NOTE | 2020-07-23 22:27 | NUR ---
PT REFUSED ALL ORAL MEDS AT BEDTIME SAYING "I JUST CAN'T". IV ABT WAS STARTED AND ENCOURAGED PT TO LET NURSE KNOW IF SHE WILL TAKE HER PILLS.
--- NOTE | 2020-07-23 23:00 | NUR ---
PT ALSO REFUSED TO HAVE FSBS DONE.
--- NOTE | 2020-07-23 23:00 | NUR ---
PT DECLINED TO TAKE HER BEDTIME MEDS. SHE HELD THE PILL CUP AND THEN TOLD NURSE SHE "JUST COULDN'T". SHE ALSO REFUSED TO HAVE FSBS DONE. CONFUSED.
[2020-07-24 00:30] VITALS: BP 162/73
--- NOTE | 2020-07-24 02:46 | NUR ---
RESTING IN BED WITH EYES CLOSED. CAF PER TELEMETRY. ANABELLA PATENT TO BEDSIDE DRAIN BAG. O2 @ 12L/HFNC WITH SAT 93%. CALL LIGHT IN REACH.
[2020-07-24 04:30] VITALS: BP 162/83
[2020-07-24 06:11] LABS: BASOPHILS 0.1 % (0-2); EOSINOPHILS 0.1 % (0-7); HEMATOCRIT 35.2 % (36.0-48.0); HEMOGLOBIN 10.3 g/dL (12-16); LYMPHOCYTE ABS# 1.02 10x3/uL (1.18-3.74); LYMPHOCYTES 13.3 % (15-50); MCH 26.9 pg (26.0-34.0); MCHC 29.3 g/dL (31.0-37.0); MCV 91.9 fL (80.0-100.0); MEAN PLATELET VOLUME 10.2 fL (7.4-10.4); MONOCYTES 6.5 % (2-11); NEUTROPHIL ABS# 6.03 10x3/uL (1.56-6.13); PLATELET COUNT 393 10x3/uL (130-400); RBC 3.83 10x6/uL (4.00-5.40); RDW 14.1 % (11.5-14.5); WBC 7.7 10x3/uL (4.8-10.8)
--- NOTE | 2020-07-24 06:13 | NUR ---
AGAIN, PT REFUSED AM MEDS AND AM FSBS. TELLS NURSE SHE "WANTS TO WAIT." O2 SAT 92% ON 12L/HFNC.
--- NOTE | 2020-07-24 06:42 | NUR ---
NO CHANGE FROM INITIAL SHIFT ASSESS MENT. REPORT TO ONCOMING NURSE.
[2020-07-24 06:56] LABS: ANION GAP 9.7 mmol/L (8-16); BILIRUBIN - TOTAL 0.51 mg/dL (0.2-1.3); CALCIUM 8.5 mg/dL (8.5-10.1); CARBON DIOXIDE 31.2 mmol/L (21.0-32.0); CREATININE - SERUM 0.9 mg/dL (0.6-1.3); POTASSIUM - SERUM 3.9 mmol/L (3.5-5.1); PROTEIN - SERUM 6.1 g/dL (6.4-8.2)
--- NOTE | 2020-07-24 08:46 | NUR ---
PT TOOK ONLY SMALLER PILLS REFUSED TO TAKE ALL THE BIG ONE. PT A/O X3, RESP EVEN BUT A LITTLE LABORED ON 11L HF. ENCOURAGED PT TO TAKE SLOW DEEP BREATHS, O2 STAYING 91-96% ON THE 11L. RT FA IV INFUSING NS AT KVO. KYLE DRAINING DARK URINE TO GRAVITY. CAF-74 ON TELEMETRY. PT DENIES ANY NEEDS AT THIS TIME. CALL LIGHT IN REACH, NAD NOTED, WILL CONTINUE PLAN OF CARE.
[2020-07-24 09:08] VITALS: BP 120/71
--- NOTE | 2020-07-24 10:47 | NUR ---
UPDATED PT'S DAUGHTER LINDSEY REGARDING PT'S PLAN OF CARE AND CONDITION.
--- NOTE | 2020-07-24 13:21 | NUR ---
EKG DONE SHOWED AFIB WITH RATE OF 79. PLACED ON CHART.
[2020-07-24 15:55] VITALS: BP 127/55
[2020-07-24 21:15] VITALS: BP 182/77
[2020-07-25 05:00] VITALS: BP 190/84
[2020-07-25 05:52] LABS: BASOPHILS 0.1 % (0-2); EOSINOPHILS 0 % (0-7); HEMATOCRIT 35.7 % (36.0-48.0); HEMOGLOBIN 10.7 g/dL (12-16); LYMPHOCYTE ABS# 0.85 10x3/uL (1.18-3.74); LYMPHOCYTES 10.6 % (15-50); MCH 27.3 pg (26.0-34.0); MCV 91.1 fL (80.0-100.0); MEAN PLATELET VOLUME 10.3 fL (7.4-10.4); MONOCYTES 8.1 % (2-11); NEUTROPHIL ABS# 6.46 10x3/uL (1.56-6.13); NEUTROPHILS 80.2 % (40-80); PLATELET COUNT 415 10x3/uL (130-400); RBC 3.92 10x6/uL (4.00-5.40); RDW 14.2 % (11.5-14.5); WBC 8.1 10x3/uL (4.8-10.8)
[2020-07-25 06:38] LABS: ANION GAP 7.5 mmol/L (8-16); BILIRUBIN - TOTAL 0.49 mg/dL (0.2-1.3); CALCIUM 8.3 mg/dL (8.5-10.1); CARBON DIOXIDE 34.3 mmol/L (21.0-32.0); POTASSIUM - SERUM 3.8 mmol/L (3.5-5.1); PROTEIN - SERUM 5.9 g/dL (6.4-8.2)
[2020-07-25 07:44] VITALS: BP 125/80
[2020-07-25 11:27] VITALS: BP 149/66
[2020-07-25 13:10] LABS: AEROBE ID Final report (()); RESULT 1 Gram positive rods (())
--- NOTE | 2020-07-25 14:17 | MORECARE ---
CASE MANAGEMENT DISCHARGE SUMMARY PATIENT: ADELFO DIALLO UNIT: [id number] ADM DATE: 07/03/20 AGE: 64 : 57 SEX: F ROOM/BED: D.3528 AUTHOR: MELISSA,DOC PHYSICIAN: REFERRING PHYSICIAN: BRIGIDA PATTERSON DO DATE OF SERVICE: 07/25/20 Discharge Plan Patient Name: ADELFO DIALLO Facility: [facility]:[place] : 1955 Planned Disposition: Home with Home Health Anticipated Discharge Date: Discharge Date: Expected LOS: Initial Reviewer: [email or web address] Initial Review Date: 07/03/2020 Generated: 07/25/20 3:16 pm Comments DCP- Discharge Planning Updated by [id number]: Amanda Harris on 07/25/20 1:[address] CM notified by physical therapy that patient is max assist x2 men. He is recommending placement v/s LTACH. CM will continue to follow and assist as needed with discharge planning / needs. DCP- Discharge Planning Updated by [id number]: Kathie Plascencia on 07/15/20 3:[address] Patient Name: ADELFO DIALLO Admission Status: ER Accout number: [id number] Admission Date: 07-03-2020 : 1955 Admission Diagnosis:INFCT FOL A PROCEDURE, DEEP INCISIONAL SURGICAL SITE, I Attending: BRIGIDA PATTERSON Current LOS: 12 Anticipated DC Date: Planned Disposition: Home with Home Health Primary Insurance: [facility] MEDICARE SOLUTIONS Discharge Planning Comments: SPOKE WITH NIDA BOWSER AND PATIENT IS NOT MEDICALLY READY TO DC. WHITE COUNT IS STILL ELEVATED AND CXR PENDING. [facility] WILL DELIVER HER OXYGEN TO HER ROOM TODAY AND [facility] WILL SEE HER WHEN SHE IS DISCHARGED. CM TO FOLLOW AND ASSIST NEEDED. Box Annealer: Kathie Plascencia DCP- Discharge Planning Updated by [id number]: Domingo Stock on 07/05/20 3:[address] CM met with patient to complete DC plan and to evaluate needs. Patient lives at home with her daughter, Lindsey Mcintyre ([phone]). CM discussed availability of home health, rehab services, and medical equipment. Patient Declined Inpatient Rehab but would like to resume [facility]. Spoke with Thais at [facility], patient is current and on hold for hospitalization. Clinicals faxed to [facility]. GWENDOLYN refusal for inpatient rehab and acceptance of Resuming [facility] signed and placed on chart. Patient voiced no other needs at this time and is satisfied with DC plan. DC IMM delivered, explained, signed by the patient, and placed in chart. Signed form also left with the patient. CM will continue to follow and will assist as needed with dc plans/needs. DCPIA - Discharge Planning Initial Assessment Updated by PATTI: Domingo Stock on 07/05/20 3:39 pm * Is the patient Alert and Oriented? Yes * How many steps to enter\exit or inside your home? RAMP * PCP FARO * Pharmacy [facility] * Preadmission Environment Home with Family * ADLs Partial Dependent * Partial ADLs (Assistance needed) Ambulation Bathing Dressing Eating Medication Management Toileting Transfers * Equipment Walker * Other Equipment n/a * List name and contact numbers for known caregivers / representatives who currently or will assist patient after discharge: LINDSEY MCINTYRE (dtr) [phone] * Verbal permission to speak to the caregivers and representatives has been obtained from the patient. Yes * Community resources currently utilized Home Health * Please name any agencies selected above. [facility] * Additional services required to return to the preadmission environment? Yes * Can the patient safely return to the preadmission environment? Yes * Has this patient been hospitalized within the prior 30 days at any hospital? No Coverage Notice Reviewer: PATTI Stock Notice Issued Date-Time: 07/05/2020 15:25 Notice Type: IM Discharge Notice Notice Delivered To: Patient Relationship to Patient: Self Fitness Instructor Name: Delivery Method: HAND - Hand Delivered Sirena Days: Prior Verbal Notification: Recipient Understood Notice: Yes Recipient Signature: Yes Med Rec Note Co-signed by Attending: Coverage Notice Comment: DC IMM delivered, explained, signed by the patient, and placed in chart. Reviewer: PATTI Stock Notice Issued Date-Time: 07/05/2020 15:25 Notice Type: Patient Choice Letter Notice Delivered To: Patient Relationship to Patient: Self Fitness Instructor Name: Delivery Method: HAND - Hand Delivered Sirena Days: Prior Verbal Notification: Recipient Understood Notice: Yes Recipient Signature: Yes Med Rec Note Co-signed by Attending: Coverage Notice Comment: Resume [facility] Last DP export: 07/15/20 3:24 p Patient Name: ADELFO DIALLO Page [phone] at 1417 All edits/amendments must be made on the electronic document DICTATION DATE: 07/25/201415 SHEAR GRINDER OPERATOR: COOPER 07/25/201415 RPT#: [id number] DC DATE: STATUS: ADM IN [facility] [address] [place] [address] END OF REPORT
[2020-07-25 15:35] VITALS: BP 138/47
--- NOTE | 2020-07-25 16:02 | NUR ---
OT NOTE: PT COMPLETED BUE AROM EXS TOLERATED. PT COMPLETED SIDE ROLLING WITH MOD A. PT COMPLETED HAIR GROOMING AND FACE HYGIENE WITH SETUP. PT FATIGUED AND REQUIRED CUES FOR INCREASED PARTICIPATION. [phone] THANK YOU,JOSE CURIEL
--- NOTE | 2020-07-25 16:45 | NUR ---
OT NOTE: PT VERY LETHARGIC TODAY.. HAD PT PERFORM UE AROM EXS, HOWEVER, AFTER APPROX 5-6 REPS, SHE REPORTED THAT SHE WAS FEELING NAUSEOUS.. THROUGHOUT TMT, PT LETHARGIC AND REQUIRED EXT TIME TO RESPOND. PROVIDED PT WITH WASHCLOTH AND BRUSH AND SHE WAS ABLE TO PERFORM SIMPLE GROOMING TASKS.. RESISTANT TO PERFORM BED MOB BECAUSE SHE FELT SICK.. EDUCATED ON IMPORTANCE OF PERFORMING UE/LE EXS IN BED AND ALSO BED MOB TO PREVENT PRESSURE SORES. RASHEL MELENDEZ, OTR/L [phone]
--- NOTE | 2020-07-25 19:46 | NUR ---
RECIEVED UP IN BED WITH EYES OPEN AND TV ON. ALERT AND CONFUSED. O2@ 11 LITERS PER HF CANNULA. IV TO RT WRIST WITH NS AT KVO. F/C INTACT WITH CLEAR YELLOW URINE DRAINING TO BEDSIDE DRAINAGE BAG. DSG TO RT FOOT CDI. TELEMETRY IN PLACE. DENIES ANY NEEDS AT THIS TIME.
[2020-07-25 20:47] VITALS: BP 132/35
[2020-07-26 01:25] VITALS: BP 148/79
[2020-07-26 05:42] LABS: BASOPHILS 0.1 % (0-2); EOSINOPHILS 0.3 % (0-7); HEMATOCRIT 36.1 % (36.0-48.0); HEMOGLOBIN 10.8 g/dL (12-16); IMMATURE GRANULOCYTES 0.9 % (0-5); LYMPHOCYTE ABS# 1.01 10x3/uL (1.18-3.74); LYMPHOCYTES 10.3 % (15-50); MCH 27.1 pg (26.0-34.0); MCHC 29.9 g/dL (31.0-37.0); MCV 90.7 fL (80.0-100.0); MEAN PLATELET VOLUME 9.9 fL (7.4-10.4); MONOCYTES 8.6 % (2-11); NEUTROPHIL ABS# 7.84 10x3/uL (1.56-6.13); NEUTROPHILS 79.8 % (40-80); PLATELET COUNT 429 10x3/uL (130-400); RBC 3.98 10x6/uL (4.00-5.40); RDW 14.3 % (11.5-14.5); WBC 9.8 10x3/uL (4.8-10.8)
[2020-07-26 05:58] VITALS: BP 140/68
[2020-07-26 06:09] LABS: ANION GAP 7.2 mmol/L (8-16); BILIRUBIN - TOTAL 0.52 mg/dL (0.2-1.3); CALCIUM 8.2 mg/dL (8.5-10.1); CARBON DIOXIDE 33.4 mmol/L (21.0-32.0); MAGNESIUM - SERUM 1.7 mg/dL (1.8-2.4); POTASSIUM - SERUM 3.6 mmol/L (3.5-5.1); PROTEIN - SERUM 5.8 g/dL (6.4-8.2)
[2020-07-26 07:10] VITALS: BP 146/55
[2020-07-26 11:35] VITALS: BP 138/44
--- NOTE | 2020-07-26 13:03 | NUR ---
Nutrition Reassessment/Follow-up: Pt in droplet isolation; covid-19+. Not eating well. Discussed in IDT; ok to start Procal per King Drake PA-C. Diet: Renal ADA, Mech Soft, Nepro TID PO intake: 0-25% Wt: 294.3# (07/12) Last BM: 07/25 per chart Labs noted: K+ 3.6, BUN 21, Cre 1.0, GFR 59, Glu 141, Ca 8.2, PO4 2.2 (07/22), Mg 1.7, Alb 2.0 Meds noted: Florajen, Protonix, Colace, Decadron, Lantus, Humulin, zinc sulfate, vit C, vit D, electrolyte protocol Est needs: 7626-6019 kcal/day (25-30 kcal/kg adj BW of 77.8 kg) 60-80 g protein/day (0.8-1 g/kg adj BW of 77.8 kg) 2555-3775 mL H2O/day (1 mL/kcal) or per MD -Start Procal @ 50 mL/hr; provides 294 kcal (13-15% est needs) & 36 g protein (45-60% est needs) daily. -Rec liberalize diet to cardiac carb consistent, mech soft. Renal function normalizing and renal signed off. -Need new wt. -RD will follow up within 2 days.
[2020-07-26 16:01] VITALS: BP 136/62
--- NOTE | 2020-07-26 16:36 | NUR ---
OT NOTE: ATTEMPTED TO TREAT PT TODAY. SHE WAS VERY LETHARGIC..SHE REPORTED THAT SHE JUST HAD NO ENERGY.. ENCOURAGED EOB SITTING AND EVEN JUST BED MOB , HOWEVER, PT STATED THAT SHE JUST COULDNT DO IT TODAY. ATTEMPTED UE AROM EXS AND PT ONLY ABLE TO PERFORM 5 REPS.. PT APPOLOGIZED BUT WAS TOO TIRED TO DO ANY MORE EXS. PROVIDED PT WITH CUP OF WATER ON HER BEDSIDE TABLE.. SHE REACHED FOR IT SEVERAL TIMES TO TAKE DRINK.. RASHEL MELENDEZ, OTR/L [phone]
--- NOTE | 2020-07-26 19:46 | NUR ---
RECIEVED UP IN BED WITH EYES CLOSED. EASILY AROUSES WITH VERBAL STIMULI. ORIENTED TO PERSON, PLACE AND SITUATION TODAY. O2@ 11 LITERS PER HF CANNULA. IV TO RT WRIST WITHNS AT TKO. F/C INTACT WITH CLEAR YELLOW URINE DRAINING TO BEDSIDE DRAINAGE BAG. TELEMETRY IN PLACE.
[2020-07-26 22:26] VITALS: BP 161/82
[2020-07-27 01:00] VITALS: BP 167/82
--- NOTE | 2020-07-27 03:48 | NUR ---
I have reviewed this patient and I concur with the Shift Assessment completed by the Licensed Practical Nurse today this shift.
[2020-07-27 04:56] VITALS: BP 162/63
[2020-07-27 06:58] LABS: ALBUMIN 1.9 g/dL (3.4-5.0); ANION GAP 8.5 mmol/L (8-16); BILIRUBIN - TOTAL 0.49 mg/dL (0.2-1.3); CALCIUM 8.3 mg/dL (8.5-10.1); MAGNESIUM - SERUM 1.8 mg/dL (1.8-2.4); POTASSIUM - SERUM 3.5 mmol/L (3.5-5.1); PROTEIN - SERUM 5.6 g/dL (6.4-8.2)
--- NOTE | 2020-07-27 07:00 | NUR ---
REPORT RECEIVED. PATIENT IS AAOX3, SITTING UP IN BED. NO S/S OF DISTRESS OBSERVED, RR EVEN AND UNLABORED ON 6L HFNC. PIV TO RT WRIST INFUSING NS @ KVO AND PROCAL @ 50ML/HR. F/C PATENT, DRAINING CLEAR YELLOW URINE TO LEFT SIDE OF BED BY GRAVITY. PATIENT DENIES NEEDS AT THIS TIME. CL IN REACH, BED LOCKED AND LOWERED, COVID PRECAUTIONS MAINTAINED. WILL CPOC.
[2020-07-27 07:31] VITALS: BP 153/81
[2020-07-27 07:42] LABS: BASOPHILS 0.1 % (0-2); EOSINOPHILS 0.8 % (0-7); HEMATOCRIT 36.7 % (36.0-48.0); HEMOGLOBIN 11.1 g/dL (12-16); IMMATURE GRANULOCYTES 0.9 % (0-5); LYMPHOCYTE ABS# 1.26 10x3/uL (1.18-3.74); LYMPHOCYTES 8.7 % (15-50); MCH 27.5 pg (26.0-34.0); MCHC 30.2 g/dL (31.0-37.0); MCV 90.8 fL (80.0-100.0); MEAN PLATELET VOLUME 10.2 fL (7.4-10.4); MONOCYTES 7.3 % (2-11); NEUTROPHIL ABS# 11.97 10x3/uL (1.56-6.13); NEUTROPHILS 82.2 % (40-80); PLATELET COUNT 452 10x3/uL (130-400); RBC 4.04 10x6/uL (4.00-5.40); RDW 14.7 % (11.5-14.5)
[2020-07-27 07:55] LABS: WBC 14.6 10x3/uL (4.8-10.8)
--- NOTE | 2020-07-27 12:44 | MORECARE ---
CASE MANAGEMENT DISCHARGE SUMMARY PATIENT: ADELFO DIALLO UNIT: [id number] ADM DATE: 07/03/20 AGE: 64 : 57 SEX: F ROOM/BED: D.8063 AUTHOR: ELIZABETH TORRES PHYSICIAN: REFERRING PHYSICIAN: BRIGIDA PATTERSON DO DATE OF SERVICE: 07/27/20 Discharge Plan Patient Name: ADELFO DIALLO Facility: [facility]:[place] : 1955 Planned Disposition: Home with Home Health Anticipated Discharge Date: Discharge Date: Expected LOS: Initial Reviewer: [email or web address] Initial Review Date: 07/03/2020 Generated: 07/27/20 1:43 pm Comments DCP- Discharge Planning Updated by [email or web address]: Roz Lopez on 07/27/20 11:[address] CM attempted to call daughter and the mailbox was full and could not leave a message. I will attempt again later in the day. CM will continue to follow and assist with discharge planning/needs. DCP- Discharge Planning Updated by [email or web address]: Amanda Harris on 07/25/20 1:[address] CM notified by physical therapy that patient is max assist x2 men. He is recommending placement v/s LTACH. CM will continue to follow and assist as needed with discharge planning / needs. DCP- Discharge Planning Updated by [id number]: Kathie Plascencia on 07/15/20 3:[address] Patient Name: ADELFO DIALLO Admission Status: ER Accout number: [id number] Admission Date: 07-03-2020 : 1955 Admission Diagnosis:INFCT FOL A PROCEDURE, DEEP INCISIONAL SURGICAL SITE, I Attending: BRIGIDA PATTERSON Current LOS: 12 Anticipated DC Date: Planned Disposition: Home with Home Health Primary Insurance: [facility] MEDICARE SOLUTIONS Discharge Planning Comments: SPOKE WITH NIDA BOWSER AND PATIENT IS NOT MEDICALLY READY TO DC. WHITE COUNT IS STILL ELEVATED AND CXR PENDING. [facility] WILL DELIVER HER OXYGEN TO HER ROOM TODAY AND [facility] WILL SEE HER WHEN SHE IS DISCHARGED. CM TO FOLLOW AND ASSIST NEEDED. Manager Of Change: Kathie Plascencia DCP- Discharge Planning Updated by [email or web address]: Domingo Stock on 07/05/20 3:[address] CM met with patient to complete DC plan and to evaluate needs. Patient lives at home with her daughter, Lindsey Mcintyre ([phone]). CM discussed availability of home health, rehab services, and medical equipment. Patient Declined Inpatient Rehab but would like to resume [facility]. Spoke with Thais at [facility], patient is current and on hold for hospitalization. Clinicals faxed to [facility]. GWENDOLYN refusal for inpatient rehab and acceptance of Res[facility] signed and placed on chart. Patient voiced no other needs at this time and is satisfied with DC plan. DC IMM delivered, explained, signed by the patient, and placed in chart. Signed form also left with the patient. CM will continue to follow and will assist as needed with dc plans/needs. DCPIA - Discharge Planning Initial Assessment Updated by AP Stock on 07/05/20 3:39 pm * Is the patient Alert and Oriented? Yes * How many steps to enter\exit or inside your home? RAMP * PCP FARO * Pharmacy [facility] * Preadmission Environment Home with Family * ADLs Partial Dependent * Partial ADLs (Assistance needed) Ambulation Bathing Dressing Eating Medication Management Toileting Transfers * Equipment Walker * Other Equipment n/a * List name and contact numbers for known caregivers / representatives who currently or will assist patient after discharge: LINDSEY MCINTYRE (dtr) [phone] * Verbal permission to speak to the caregivers and representatives has been obtained from the patient. Yes * Community resources currently utilized Home Health * Please name any agencies selected above. [facility] * Additional services required to return to the preadmission environment? Yes * Can the patient safely return to the preadmission environment? Yes * Has this patient been hospitalized within the prior 30 days at any hospital? No Coverage Notice Reviewer: PATTI Stock Notice Issued Date-Time: 07/05/2020 15:25 Notice Type: IM Discharge Notice Notice Delivered To: Patient Relationship to Patient: Self Architectural Wood Model Maker Name: Delivery Method: HAND - Hand Delivered Sirena Days: Prior Verbal Notification: Recipient Understood Notice: Yes Recipient Signature: Yes Med Rec Note Co-signed by Attending: Coverage Notice Comment: DC IMM delivered, explained, signed by the patient, and placed in chart. Reviewer: PATTI Stock Notice Issued Date-Time: 07/05/2020 15:25 Notice Type: Patient Choice Letter Notice Delivered To: Patient Relationship to Patient: Self Architectural Wood Model Maker Name: Delivery Method: HAND - Hand Delivered Sirena Days: Prior Verbal Notification: Recipient Understood Notice: Yes Recipient Signature: Yes Med Rec Note Co-signed by Attending: Coverage Notice Comment: [facility] Last DP export: 07/25/20 1:17 pm Patient Name: ADELFO DIALLO Page [phone] at 1244 All edits/amendments must be made on the electronic document DICTATION DATE: 07/27/20 1243 SURGICAL INSTRUMENT MECHANIC: COOPER 07/27/20 1243 RPT#: [id number] DC DATE: STATUS: ADM IN [facility] [address] [place] [address] END OF REPORT
--- NOTE | 2020-07-27 15:18 | NUR ---
OT NOTE: PT REMAINS VERY LETHARGIC.. LOOKS VERY ILL. ATTEMPTED EXS, ADLS, BED MOB, ETC..HOWEVER, PT STATED THAT SHE JUST COULD NOT DO IT TODAY.. STATES THAT SHE FEELS VERY EXHAUSTED.. WILL CONT TO CHECK ON PT. RASHEL MELENDEZ, OTR/L [id number]
[2020-07-27 15:57] VITALS: BP 158/79
[2020-07-27 20:00] VITALS: BP 152/77
--- NOTE | 2020-07-27 20:17 | NUR ---
RECIEVED UP IN BED WITH EYES OPEN AND TV OFF. ALERT AND ORIETNED TO NAME ONLY. [address] PER NRB IN PL[address]. IV TO RT WRIST WITH NS AT KVO. TELEMETRY IN PLACE. DSG TO RT FOOT. DENIES ANY NEEDS AT THIS TIME.
[2020-07-28] VITALS: BP 149/87
[2020-07-28 04:00] VITALS: BP 145/66
[2020-07-28 05:25] LABS: BASOPHILS 0.1 % (0-2); EOSINOPHILS 2.8 % (0-7); HEMATOCRIT 36.4 % (36.0-48.0); HEMOGLOBIN 11.1 g/dL (12-16); IMMATURE GRANULOCYTES 0.7 % (0-5); LYMPHOCYTE ABS# 1.09 10x3/uL (1.18-3.74); LYMPHOCYTES 8.6 % (15-50); MCH 27.6 pg (26.0-34.0); MCHC 30.5 g/dL (31.0-37.0); MCV 90.5 fL (80.0-100.0); MONOCYTES 6.4 % (2-11); NEUTROPHIL ABS# 10.37 10x3/uL (1.56-6.13); NEUTROPHILS 81.4 % (40-80); PLATELET COUNT 418 10x3/uL (130-400); RBC 4.02 10x6/uL (4.00-5.40); RDW 15.2 % (11.5-14.5); WBC 12.7 10x3/uL (4.8-10.8)
[2020-07-28 05:50] LABS: ALBUMIN 1.8 g/dL (3.4-5.0); ANION GAP 6.9 mmol/L (8-16); BILIRUBIN - TOTAL 0.68 mg/dL (0.2-1.3); CALCIUM 7.9 mg/dL (8.5-10.1); CARBON DIOXIDE 33.5 mmol/L (21.0-32.0); CREATININE - SERUM 0.9 mg/dL (0.6-1.3); MAGNESIUM - SERUM 1.8 mg/dL (1.8-2.4); POTASSIUM - SERUM 3.4 mmol/L (3.5-5.1); PROTEIN - SERUM 5.5 g/dL (6.4-8.2)
[2020-07-28 07:27] VITALS: BP 135/56
--- NOTE | 2020-07-28 08:00 | NUR ---
PT RECEIVED LAYING IN BED. PULLING UP FOR BREAKFAST AND FOUND TO BE BLEEDING FROM LAB DRAW SITE. CLEANED AND NEW DRESSING APPLIED. LINENS CHANGED. MEDS GIVEN.
--- NOTE | 2020-07-28 09:50 | NUR ---
PT BLED THROUGH BANDAGE TO LAB DRAW SITE (LEFT AC). NEW DRESSING APPLIED AND COBAN USED FOR PRESSURE. WILL MONITOR NEUROVASCULAR STATUS. LOVENOX HELD AT PRESENT TILL TALK TO DOCTOR.
--- NOTE | 2020-07-28 11:04 | NUR ---
Nutrition Follow-up: Pt in droplet isolation; covid-19+. Receiving Procal @ 50 mL/hr; provides 294 kcal (13-15% est needs) & 36 g protein (45-60% est needs) daily. Diet: Renal ADA, Mech Soft, Nepro TID Wt: 294.3# (07/12) Last BM: 07/27 per chart Labs noted: K+ 3.4, Glu 97, Ca 7.9, Alb 1.8 Meds noted: Florajen, Colace, Protonix, Humulin, Lantus, Decadron, zinc sulfate, vit C, vit D, electrolyte protocol -Rec liberalize to cardiac carb consistent diet. -May consider more substantial nutrition support (PEG?) if PO intake does not improve. -Need new wt. -RD follow-up: 08/01
[2020-07-28 11:40] VITALS: BP 112/40
--- NOTE | 2020-07-28 12:53 | NUR ---
OT NOTE: PT HAS BEEN UNABLE TO TOLERATE MUCH THERAPY, HOWEVER, TODAY PT MORE ALERT.. STILL WEAK AND SLOW TO RESPOND TO QUESTIONS AND ACTIVITIES. REQUESTED ASSIST FROM GARCIA TODAY IN ORDER TO GET PT UP TO EOB AND PROVIDE BATH.. BED MOB INCLUDING SUPINE TO SIT WITH MOD ASSIST; MOD ASSIST TO GET POSITIONED TO EOB. 02 SATS DROPPED INTO THE HIGH 80S, BUT IMPROVED WITH CUES FOR PROPER BREATHING. PT ABLE TO WASH FACE AND HANDS, BUT THATS ABOUT IT.. REQUIRED MAX ASSIST WITH REMAINING SPONGE BATH WHILE SITTING UP ON EOB. PT TOLERATED SITTING UP FOR APPROX 15 MIN BEFORE PT HAD TO LIE DOWN. MAX ASSIST X 2 FOR SIT TO SUPINE. PT THEN HAD LARGE BM AND REQUIRED MAX ASSIST FOR ROLLING SIDE TO SIDE..ROLLING PERFORMED X 5. PT VERY FATIGUED FOLLOWING TMT.. THIS IS THE MOST PT HAS DONE WITH O.T. IN SEVERAL DAYS. RASHEL MELENDEZ, OTR/L [phone]
[2020-07-28 15:28] VITALS: BP 142/64
--- NOTE | 2020-07-28 16:20 | NUR ---
OT NOTE: PT EXHIBITED INCREASED AX TOLERANCE. PT IS SLOW TO RESPONED VERBALLY TO QUESTIONS. PT COMPLETED BED MOB TASKS WITH MOD A. PT COMPLETED EOB SITTING WITH FUNCTIONAL ADL TASKS. PT COMPLETED LB BATHING TASKS WITH MAX A. PT COMPLETED UB HYGIENE WITH MOD A. PT REQUIRED TOTAL A WITH LB HYGIENE. [id number] THANK YOU,JOSE CURIEL
--- NOTE | 2020-07-28 19:30 | NUR ---
PT IN BED, EYES CLOSED, RESP EVEN AND UNLABORED, NO DISTRESS NOTED, CL IN REACH, SR UP X 2.
--- NOTE | 2020-07-28 19:34 | MORECARE ---
CASE MANAGEMENT DISCHARGE SUMMARY PATIENT: ADELFO DIALLO UNIT: [id number] ADM DATE: 07/03/20 AGE: 64 : 57 SEX: F ROOM/BED: D.7038 AUTHOR: MELISSA,DOC PHYSICIAN: REFERRING PHYSICIAN: BRIGIDA PATTERSON DO DATE OF SERVICE: 07/28/20 Discharge Plan Patient Name: ADELFO DIALLO Facility: [facility]:[place] : 1955 Planned Disposition: Home with Home Health Anticipated Discharge Date: Discharge Date: Expected LOS: Initial Reviewer: [email or web address] Initial Review Date: 07/03/2020 Generated: 07/28/20 8:33 pm Comments DCP- Discharge Planning Updated by [email or web address]: Amanda Harris on 07/28/20 6:[address] CM attempted to call daughter but didn't get an answer. DCP- Discharge Planning Updated by [email or web address]: Roz Lopez on 07/27/20 11:[address] CM attempted to call daughter and the mailbox was full and could not leave a message. I will attempt again later in the day. CM will continue to follow and assist with discharge planning/needs. DCP- Discharge Planning Updated by [id number]: Amanda Harris on 07/25/20 1:[address] CM notified by physical therapy that patient is max assist x2 men. He is recommending placement v/s LTACH. CM will continue to follow and assist as needed with discharge planning / needs. DCP- Discharge Planning Updated by [email or web address]: Kathie Plascencia on 07/15/20 3:[address] Patient Name: ADELFO DIALLO Admission Status: ER Accout number: [id number] Admission Date: 07-03-2020 : 1955 Admission Diagnosis:INFCT FOL A PROCEDURE, DEEP INCISIONAL SURGICAL SITE, I Attending: BRIGIDA PATTERSON Current LOS: 12 Anticipated DC Date: Planned Disposition: Home with Home Health Primary Insurance: [facility] MEDIC[facility] SOLUTIONS Discharge Planning Comments: SPOKE WITH NIDA BOWSER AND PATIENT IS NOT MEDICALLY READY TO DC. WHITE COUNT IS STILL ELEVATED AND CXR PENDING. [facility] WILL DELIVER HER OXYGEN TO HER ROOM TODAY AND [facility] WILL SEE HER WHEN SHE IS DISCHARGED. CM TO FOLLOW AND ASSIST NEEDED. Filbert Grower: Kathiedavid Plascencia DCP- Discharge Planning Updated by AP Stock on 07/05/20 3:[address] CM met with patient to complete DC plan and to evaluate needs. Patient lives at home with her daughter, Lindsey Mcintyre ([phone]). CM discussed availability of home health, rehab services, and medical equipment. Patient Declined Inpatient Rehab but would like to resume [facility]. Spoke with Thais at [facility], patient is current and on hold for hospitalization. Clinicals faxed to [facility]. GWENDOLYN refusal for inpatient rehab and acceptance of [facility] signed and placed on chart. Patient voiced no other needs at this time and is satisfied with DC plan. DC IMM delivered, explained, signed by the patient, and placed in chart. Signed form also left with the patient. CM will continue to follow and will assist as needed with dc plans/needs. DCPIA - Discharge Planning Initial Assessment Updated by PATTI: Domingo Stock on 07/05/20 3:39 pm * Is the patient Alert and Oriented? Yes * How many steps to enter\exit or inside your home? RAMP * PCP FARO * Pharmacy [facility] * Preadmission Environment Home with Family * ADLs Partial Dependent * Partial ADLs (Assistance needed) Ambulation Bathing Dressing Eating Medication Management Toileting Transfers * Equipment Walker * Other Equipment n/a * List name and contact numbers for known caregivers / representatives who currently or will assist patient after discharge: LINDSEY MCINTYRE (dtr) [phone] * Verbal permission to speak to the caregivers and representatives has been obtained from the patient. Yes * Community resources currently utilized Home Health * Please name any agencies selected above. [facility] * Additional services required to return to the preadmission environment? Yes * Can the patient safely return to the preadmission environment? Yes * Has this patient been hospitalized within the prior 30 days at any hospital? No Coverage Notice Reviewer: PATTI Stock Notice Issued Date-Time: 07/05/2020 15:25 Notice Type: IM Discharge Notice Notice Delivered To: Patient Relationship to Patient: Self Slot Tag Inserter Name: Delivery Method: HAND - Hand Delivered Sirena Days: Prior Verbal Notification: Recipient Understood Notice: Yes Recipient Signature: Yes Med Rec Note Co-signed by Attending: Coverage Notice Comment: DC IMM delivered, explained, signed by the patient, and placed in chart. Reviewer: [id number] - Domingo Stock Notice Issued Date-Time: 07/05/2020 15:25 Notice Type: Patient Choice Letter Notice Delivered To: Patient Relationship to Patient: Self Slot Tag Inserter Name: Delivery Method: HAND - Hand Delivered Sirena Days: Prior Verbal Notification: Recipient Understood Notice: Yes Recipient Signature: Yes Med Rec Note Co-signed by Attending: Coverage Notice Comment: [facility] Last DP export: 07/27/20 11:44 a Patient Name: ADELFO DIALLO Page [id number] at 1934 All edits/amendments must be made on the electronic document DICTATION DATE: 07/28/201932 PATIENT SERVICES REP: COOPER 07/28/201932 RPT#: [id number] DC DATE: STATUS: ADM IN [facility] [address] [place] [address] END OF REPORT
[2020-07-28 20:13] VITALS: BP 134/66
[2020-07-29 00:45] VITALS: BP 124/51
--- NOTE | 2020-07-29 02:01 | NUR ---
I have reviewed this patient and I concur with the Shift Assessment completed by the Licensed Practical Nurse today this shift.
[2020-07-29 04:55] VITALS: BP 139/60
[2020-07-29 07:27] VITALS: BP 151/68
[2020-07-29 09:07] LABS: BASOPHILS 0 % (0-2); EOSINOPHILS 0.7 % (0-7); HEMATOCRIT 34.7 % (36.0-48.0); HEMOGLOBIN 10.6 g/dL (12-16); IMMATURE GRANULOCYTES 0.5 % (0-5); LYMPHOCYTE ABS# 0.95 10x3/uL (1.18-3.74); LYMPHOCYTES 7.8 % (15-50); MCH 27.6 pg (26.0-34.0); MCHC 30.5 g/dL (31.0-37.0); MCV 90.4 fL (80.0-100.0); MEAN PLATELET VOLUME 10.1 fL (7.4-10.4); MONOCYTES 7.9 % (2-11); NEUTROPHIL ABS# 10.05 10x3/uL (1.56-6.13); NEUTROPHILS 83.1 % (40-80); PLATELET COUNT 399 10x3/uL (130-400); RBC 3.84 10x6/uL (4.00-5.40); RDW 15.2 % (11.5-14.5); WBC 12.1 10x3/uL (4.8-10.8)
[2020-07-29 09:19] LABS: ALBUMIN 1.8 g/dL (3.4-5.0); ANION GAP 6.8 mmol/L (8-16); BILIRUBIN - TOTAL 0.4 mg/dL (0.2-1.3); CALCIUM 8.4 mg/dL (8.5-10.1); CARBON DIOXIDE 32.2 mmol/L (21.0-32.0); CREATININE - SERUM 0.9 mg/dL (0.6-1.3); MAGNESIUM - SERUM 2.2 mg/dL (1.8-2.4); PROTEIN - SERUM 5.6 g/dL (6.4-8.2); VANCOMYCIN - TROUGH 16.7 ug/mL (10.0-20.0)
[2020-07-29 11:44] VITALS: BP 165/65
--- NOTE | 2020-07-29 12:12 | MORECARE ---
CASE MANAGEMENT DISCHARGE SUMMARY PATIENT: ADELFO DIALLO UNIT: [id number] ADM DATE: 07/03/20 AGE: 64 : 57 SEX: F ROOM/BED: D.8668 AUTHOR: MELISSA,DOC PHYSICIAN: REFERRING PHYSICIAN: BRIGIDA PATTERSON DO DATE OF SERVICE: 07/29/20 Discharge Plan Patient Name: ADELFO DIALLO Facility: [facility]:[place] : 1955 Planned Disposition: Home with Home Health Anticipated Discharge Date: Discharge Date: Expected LOS: Initial Reviewer: [email or web address] Initial Review Date: 07/03/2020 Generated: 07/29/20 1:11 pm Comments DCP- Discharge Planning Updated by [email or web address]: Roz Lopez on 07/29/20 11:[address] CM spoke with patient's daughter again regarding LTACH. She said the one in [place] may be ok and she will check on the 2 LTACH's in [place]. She refuses the LTACH's any where else on the list. She states she may consider patient to come home with [facility] if she can get a hospital bed and a emily lift. I explained the high oxygen demands she is requiring now and why LTACH would be a better/safer DC plan. She states she will call me back with her decision. DCP- Discharge Planning Updated by [email or web address]: Amanda Harris on 07/28/20 6:[address] CM attempted to call daughter but didn't get an answer. DCP- Discharge Planning Updated by [email or web address]: Roz Lopez on 07/27/20 11:[address] CM attempted to call daughter and the mailbox was full and could not leave a message. I will attempt again later in the day. CM will continue to follow and assist with discharge planning/needs. DCP- Discharge Planning Updated by [email or web address]: Amanda Harris on 07/25/20 1:[address] CM notified by physical therapy that patient is max assist x2 men. He is recommending placement v/s LTACH. CM will continue to follow and assist as needed with discharge planning / needs. DCP- Discharge Planning Updated by [id number]: Kathie Plascencia on 07/15/20 3:[address] Patient Name: ADELFO DIALLO Admission Status: ER Accout number: [id number] Admission Date: 07-03-2020 : 1955 Admission Diagnosis:INFCT FOL A PROCEDURE, DEEP INCISIONAL SURGICAL SITE, I Attending: BRIGIDA PATTERSON Current LOS: 12 Anticipated DC Date: Planned Disposition: Home with Home Health Primary Insurance: [facility] MEDIC[facility] SOLUTIONS Discharge Planning Comments: SPOKE WITH NIDA BOWSER AND PATIENT IS NOT MEDICALLY READY TO DC. WHITE COUNT IS STILL ELEVATED AND CXR PENDING. [facility] WILL DELIVER HER OXYGEN TO HER ROOM TODAY AND [facility] WILL SEE HER WHEN SHE IS DISCHARGED. CM TO FOLLOW AND ASSIST NEEDED. Freight Manager: Kathie Plascencia DCP- Discharge Planning Updated by [email or web address]: Domingo Stock on 07/05/20 3:[address] CM met with patient to complete DC plan and to evaluate needs. Patient lives at home with her daughter, Lindsey Mcintyre ([phone]). CM discussed availability of home health, rehab services, and medical equipment. Patient Declined Inpatient Rehab but would like to resume [facility]. Spoke with Thais at [facility], patient is current and on hold for hospitalization. Clinicals faxed to [facility]. GWENDOLYN refusal for inpatient rehab and acceptance of [facility] signed and placed on chart. Patient voiced no other needs at this time and is satisfied with DC plan. DC IMM delivered, explained, signed by the patient, and placed in chart. Signed form also left with the patient. CM will continue to follow and will assist as needed with dc plans/needs. DCPIA - Discharge Planning Initial Assessment Updated by [id number]: Domingo Stock on 07/05/20 3:39 pm * Is the patient Alert and Oriented? Yes * How many steps to enter\exit or inside your home? RAMP * PCP FARO * Pharmacy [facility] * Preadmission Environment Home with Family * ADLs Partial Dependent * Partial ADLs (Assistance needed) Ambulation Bathing Dressing Eating Medication Management Toileting Transfers * Equipment Walker * Other Equipment n/a * List name and contact numbers for known caregivers / representatives who currently or will assist patient after discharge: LINDSEY MCINTYRE (dtr) [phone] * Verbal permission to speak to the caregivers and representatives has been obtained from the patient. Yes * Community resources currently utilized Home Health * Please name any agencies selected above. [facility] * Additional services required to return to the preadmission environment? Yes * Can the patient safely return to the preadmission environment? Yes * Has this patient been hospitalized within the prior 30 days at any hospital? No Coverage Notice Reviewer: PATTI Stock Notice Issued Date-Time: 07/05/2020 15:25 Notice Type: IM Discharge Notice Notice Delivered To: Patient Relationship to Patient: Self River Rat Name: Delivery Method: HAND - Hand Delivered Sirena Days: Prior Verbal Notification: Recipient Understood Notice: Yes Recipient Signature: Yes Med Rec Note Co-signed by Attending: Coverage Notice Comment: DC IMM delivered, explained, signed by the patient, and placed in chart. Reviewer: [email or web address] Stephanie Stock Notice Issued Date-Time: 07/05/2020 15:25 Notice Type: Patient Choice Letter Notice Delivered To: Patient Relationship to Patient: Self River Rat Name: Delivery Method: HAND - Hand Delivered Sirena Days: Prior Verbal Notification: Recipient Understood Notice: Yes Recipient Signature: Yes Med Rec Note Co-signed by Attending: Coverage Notice Comment: [facility] Last DP export: 07/28/20 6:34 p Patient Name: ADELFO DIALLO Page [phone] at 1212 All edits/amendments must be made on the electronic document DICTATION DATE: 07/29/20 1212 PUBLICITY EXPERT: COOPER 07/29/20 1212 RPT#: [id number] DC DATE: STATUS: ADM IN [facility] [address] [place] [address] END OF REPORT
--- NOTE | 2020-07-29 12:18 | NUR ---
OT NOTE: PT COMPLETED BED MOB WITH MOD A. PT COMPLETED EOB SITTING WITH SBA.PT COMPLETED LB HYGIENE WITH TOTAL A. [id number] ALESHA KHAN COTA
--- NOTE | 2020-07-29 12:28 | NUR ---
OT NOTE: ATTEMPTED TO SEE PT EARLY IN THE AM. PT REMAINS VERY SLOW TO RESPOND.. DAZED LOOK ON HER FACE..02 SATS WERE WFLS. SLOW PROCESSING. PTS BREAKFAST TRAY ARRIVED.. SHE IS ABLE TO FEED SELF BUT HAS POOR APPETITE AND EXT TIME REQUIRED. RASHEL GLASS, OTR/L [phone]
--- NOTE | 2020-07-29 20:00 | NUR ---
INITIAL ROUNDS AND ASSESSMENT COMPLETED. PT RESTING IN BED, DINNER TRAY IN FRONT OF HER AND SHE IS EATING IT VERY SLOWLY, BUT DOING A GOOD JOB. CAF PER TELEMETRY. ON 12L/HFNC WITH NO RESPIRATORY DISTRESS. IV TO RIGHT WIRST WITH PROCALAMINE AT 50ML/HR AND NS @ KVO FOR ABT. KYLE PATENT TO BEDSIDE DRAIN BAG. ALERT/ANSWERS QUESTIONS SLOWLY. CALL LIGHT IN REACH.
[2020-07-29 20:57] VITALS: BP 148/72
[2020-07-30 00:30] VITALS: BP 141/83
--- NOTE | 2020-07-30 05:04 | NUR ---
INCONTINENT OF BM. CARE PROVIDED. FLUSHED CATHETER D/T LOW OUTPUT OF URINE. URINE NOW FLOWING FREELY FROM CATHETER TO BEDSIDE BAG. BARRIER CREAM APPLIED TO BUTTOCKS/REDDENED AREAS. LINENS/GOWN CHANGED.
[2020-07-30 05:06] LABS: BASOPHILS 0 % (0-2); EOSINOPHILS 0.6 % (0-7); HEMOGLOBIN 10.3 g/dL (12-16); IMMATURE GRANULOCYTES 0.7 % (0-5); LYMPHOCYTE ABS# 0.79 10x3/uL (1.18-3.74); MCH 27.5 pg (26.0-34.0); MCHC 30.3 g/dL (31.0-37.0); MCV 90.7 fL (80.0-100.0); MEAN PLATELET VOLUME 10.1 fL (7.4-10.4); MONOCYTES 7.6 % (2-11); NEUTROPHIL ABS# 9.48 10x3/uL (1.56-6.13); NEUTROPHILS 84.1 % (40-80); PLATELET COUNT 424 10x3/uL (130-400); RBC 3.75 10x6/uL (4.00-5.40); RDW 15.3 % (11.5-14.5); WBC 11.3 10x3/uL (4.8-10.8)
[2020-07-30 05:13] VITALS: BP 158/78
[2020-07-30 05:29] LABS: ALBUMIN 1.9 g/dL (3.4-5.0); ANION GAP 11.3 mmol/L (8-16); BILIRUBIN - TOTAL 0.37 mg/dL (0.2-1.3); CALCIUM 8.1 mg/dL (8.5-10.1); CARBON DIOXIDE 29.5 mmol/L (21.0-32.0); MAGNESIUM - SERUM 2.2 mg/dL (1.8-2.4); POTASSIUM - SERUM 4.8 mmol/L (3.5-5.1); PROTEIN - SERUM 5.2 g/dL (6.4-8.2)
[2020-07-30 07:38] VITALS: BP 128/68
--- NOTE | 2020-07-30 08:35 | NUR ---
AM MEDS GIVEN AT THIS TIME. RT WRIST IV LEAKING, D/C WITH CATHETER TIP INTACT. NEW 22G IV STARTED TO RT HAND X2 STICKS, PT TOLERATED WELL. PT A/O X3, RESP EVEN AND NONLABORED ON 12L HF. ON CONTINUES PULSE OX. CAF-79 ON TELEMETRY. KYLE DRAINING DARK YELLOW URINE TO GRAVITY. PT DENIES ANY NEEDS AT THIS TIME. CALL LIGHT IN REACH, WILL CONTINUE PLAN OF CARE.
--- NOTE | 2020-07-30 10:58 | NUR ---
BLOOD SUGAR OF 95, NO COVERAGE NEEDED PER S/S. PT RESTING COMFORTABLY IN BED, DENIES ANY NEEDS AT THIS TIME. CALL LIGHT IN REACH.
[2020-07-30 11:43] VITALS: BP 163/77
--- NOTE | 2020-07-30 13:59 | NUR ---
PROVIDED DRESSING CHANGE TO RT FOOT PARITAL AMPUTAION. SMALL OF DRAINAGE NOTED. SITE ALSO HAS AREA OF ESCHAR. PT TOLERATED DRESSING CHANGE WELL. ALSO UPDATED PT'S DAUGHTER LINDSEY ON PT'S PLAN OF CARE AND CONDITION.
[2020-07-30 16:31] VITALS: BP 152/51
--- NOTE | 2020-07-30 16:51 | NUR ---
BLOOD SUGAR OF 412, 28UNITS GIVEN PER S/S. PT DENIES ANY NEEDS AT THIS TIME. CALL LIGHT IN REACH.
--- NOTE | 2020-07-30 18:08 | NUR ---
BLOOD SUGAR NOW 402, GAVE 14UNITS.
--- NOTE | 2020-07-30 20:10 | NUR ---
INITIAL ROUNDS AND ASSESSMENT COMPLETED. PT RESTING IN BED. ALERT/SLOW TO RESPOND. IV TO RIGHT HAND WITH PROCALAMINE AT 50ML/HR AND NS @ KVO. SHALLOW RESPIRATIONS WITH O2 10L/HFNC. CAF PER TELEMETRY. CLEAN/DRY. KYLE PATENT TO BEDSIDE DRAIN BAG. DRESSING TO RIGHT FOOT C/D/I.
[2020-07-30 20:49] VITALS: BP 150/79
--- NOTE | 2020-07-30 22:04 | NUR ---
BEDTIME MEDS GIVEN. FSBS 303, SLIDING SCALE INSULIN GIVEN. LANTUS 40 UNITS GIVEN. BOTH IN ABDOMEN. PT MUCH MORE ALERT AND RESPONDING TO CONVERSATION. ANABELLA PATENT. CLEAN/DRY. CALL LIGHT IN REACH.
[2020-07-31 00:58] VITALS: BP 179/85
[2020-07-31 05:33] VITALS: BP 183/82
[2020-07-31 05:52] LABS: BASOPHILS 0.1 % (0-2); EOSINOPHILS 0.3 % (0-7); IMMATURE GRANULOCYTES 0.3 % (0-5); LYMPHOCYTE ABS# 0.68 10x3/uL (1.18-3.74); LYMPHOCYTES 6.6 % (15-50); MCHC 30.3 g/dL (31.0-37.0); MCV 92.4 fL (80.0-100.0); MEAN PLATELET VOLUME 10.1 fL (7.4-10.4); MONOCYTES 8.8 % (2-11); NEUTROPHIL ABS# 8.69 10x3/uL (1.56-6.13); NEUTROPHILS 83.9 % (40-80); PLATELET COUNT 402 10x3/uL (130-400); RBC 3.57 10x6/uL (4.00-5.40); RDW 15.6 % (11.5-14.5); WBC 10.4 10x3/uL (4.8-10.8)
[2020-07-31 06:09] LABS: ALBUMIN 1.9 g/dL (3.4-5.0); BILIRUBIN - TOTAL 0.38 mg/dL (0.2-1.3); CREATININE - SERUM 0.9 mg/dL (0.6-1.3); POTASSIUM - SERUM 4.8 mmol/L (3.5-5.1); PROTEIN - SERUM 5.7 g/dL (6.4-8.2)
[2020-07-31 06:12] LABS: ANION GAP 13.8 mmol/L (8-16)
--- NOTE | 2020-07-31 06:33 | NUR ---
NO CHANGE FROM INITIAL SHIFT ASSESSMENT. NO DISTRESS. PROCALAMINE INFUSING. FSBS 183 WITH SLIDING SCALE ADMINISTERED. KYLE PATENT WITH 1200ML OUTPUT. NO BM TONIGHT. CALL LIGHT IN REACH.
--- NOTE | 2020-07-31 07:38 | NUR ---
PT RESTING COMFORTABLY IN BED, A/O X3, RESP EVEN AND NONLABORED ON 10HF. RT HAND INFUSING NS AT KVO AND PROCALAMINE AT 50CC/HR. CAF -66 ON TELEMETRY. KYLE DRAINING DARK YELLOW URINE TO GRAVITY. RT FOOT DRESSING CDI. CALL LIGHT IN REACH.
[2020-07-31 07:51] VITALS: BP 164/87
[2020-07-31 11:30] VITALS: BP 183/74
--- NOTE | 2020-07-31 11:35 | NUR ---
BLOOD SUGAR OF 120, NO COVERAGE NEEDED PER S/S. PT RESTING COMFORTABLY IN BED, DENIES ANY NEEDS AT THIS TIME. CALL LIGHT IN REACH.
[2020-07-31 16:00] VITALS: BP 168/68
--- NOTE | 2020-07-31 19:49 | NUR ---
INITIAL ROUNDS AND ASSESSMENT COMPLETED. PT RESTING IN BED. NO DISTRESS. CALL LIGHT IN REACH. CURRENTLY ON 5L/HFNC. PROCALAMINE INFUSING AT 50ML/HR TO RIGHT WRIST.
[2020-07-31 20:56] VITALS: BP 198/85
--- NOTE | 2020-07-31 22:04 | NUR ---
BEDTIME MEDS GIVEN. FSBS 321. SLIDING SCALE AND LANTUS BOTH ADMINISTERED. PT RESTING WITH NO DISTRESS.
[2020-08-01] VITALS (7 sets, daily range): BP systolic 120–185; BP diastolic 54–83
--- NOTE | 2020-08-01 02:56 | NUR ---
RESTING IN BED WITH NO DISTRESS. NONLABORED RESPIRATIONS ON HFNC AT 5L. CALL LIGHT IN REACH.
[2020-08-01 06:59] LABS: BASOPHILS 0 % (0-2); EOSINOPHILS 0.3 % (0-7); HEMATOCRIT 34.3 % (36.0-48.0); HEMOGLOBIN 10.5 g/dL (12-16); IMMATURE GRANULOCYTES 0.4 % (0-5); LYMPHOCYTES 5.2 % (15-50); MCH 27.5 pg (26.0-34.0); MCHC 30.6 g/dL (31.0-37.0); MONOCYTES 9.2 % (2-11); NEUTROPHIL ABS# 13.03 10x3/uL (1.56-6.13); NEUTROPHILS 84.9 % (40-80); PLATELET COUNT 461 10x3/uL (130-400); RBC 3.82 10x6/uL (4.00-5.40); RDW 15.2 % (11.5-14.5)
[2020-08-01 07:03] LABS: MCV 89.8 fL (80.0-100.0); WBC 15.3 10x3/uL (4.8-10.8)
[2020-08-01 07:05] LABS: ALBUMIN 2.1 g/dL (3.4-5.0); ANION GAP 9.3 mmol/L (8-16); BILIRUBIN - TOTAL 0.47 mg/dL (0.2-1.3); CALCIUM 8.5 mg/dL (8.5-10.1); CARBON DIOXIDE 28.4 mmol/L (21.0-32.0); CREATININE - SERUM 0.9 mg/dL (0.6-1.3); POTASSIUM - SERUM 4.7 mmol/L (3.5-5.1); PROTEIN - SERUM 5.8 g/dL (6.4-8.2)
--- NOTE | 2020-08-01 08:25 | NUR ---
Nutrition Reassessment/Follow-up: PO intake seems to be improving; 75-100% reported over the weekend. Receiving Procal @ 50 mL/hr. Diet: Renal ADA, Mech Soft, Nepro TID PO intake: 79% avg x 6 meals (07/29 & 07/31) No new wt Labs noted: Na 135, Glu 197, Alb 2.1 Meds noted: Florajen, Miralax, Colace, Protonix, Decadron, Lantus, Humulin, zinc sulfate, vit C, vit D, electrolyte protocol -Nutrition needs unchanged. -Encourage PO intake and honor food preferences within diet restrictions. -Need new wt. -RD will follow up within 3-4 days.
--- NOTE | 2020-08-01 11:08 | NUR ---
BLOOD SUGAR OF 151, 8UNITS OF INSULIN GIVEN PER S/S. PT VERY DROWSY TODAY. NOT TAKEN AM MEDICATIONS YET, STATES THAT SHE WILL EVENTUALLY TAKE THEM, TO LEAVE THEM AT BEDSIDE.
--- NOTE | 2020-08-01 15:15 | NUR ---
NOTIFIED TESS LUCAS APRN, THAT PT HAS BECOME MORE LETHARGIC AND HAD TO TURN UP O2 TO 13HF TO KEEP O2 ABOVE 92%. NEW ORDER TO GET ABGS. DR. PERAZA ALSO NOTIFIED AND IS IN AGREEANCE WITH ABG ORDER.
--- NOTE | 2020-08-01 23:42 | NUR ---
I have reviewed this patient and I concur with the Shift Assessment completed by the Licensed Practical Nurse today this shift.
[2020-08-02] VITALS (12 sets, daily range): BP systolic 137–171; BP diastolic 62–94
--- NOTE | 2020-08-02 01:37 | NUR ---
RESTING WITH RESPERATINS EVEN, NO S/S DISTRESS NOTED.
[2020-08-02 05:51] LABS: BASOPHILS 0 % (0-2); EOSINOPHILS 0.9 % (0-7); HEMATOCRIT 31.7 % (36.0-48.0); HEMOGLOBIN 9.5 g/dL (12-16); IMMATURE GRANULOCYTES 0.3 % (0-5); MCH 27.5 pg (26.0-34.0); MCV 91.6 fL (80.0-100.0); MEAN PLATELET VOLUME 9.9 fL (7.4-10.4); MONOCYTES 5.7 % (2-11); NEUTROPHIL ABS# 14.19 10x3/uL (1.56-6.13); NEUTROPHILS 88.1 % (40-80); PLATELET COUNT 387 10x3/uL (130-400); RBC 3.46 10x6/uL (4.00-5.40); RDW 15.8 % (11.5-14.5); WBC 16.1 10x3/uL (4.8-10.8)
[2020-08-02 06:20] LABS: ALBUMIN 1.8 g/dL (3.4-5.0); ANION GAP 8.6 mmol/L (8-16); BILIRUBIN - TOTAL 0.62 mg/dL (0.2-1.3); CALCIUM 8.3 mg/dL (8.5-10.1); CARBON DIOXIDE 29.8 mmol/L (21.0-32.0); CREATININE - SERUM 0.9 mg/dL (0.6-1.3); MAGNESIUM - SERUM 1.8 mg/dL (1.8-2.4); POTASSIUM - SERUM 4.4 mmol/L (3.5-5.1); PROTEIN - SERUM 5.5 g/dL (6.4-8.2)
--- NOTE | 2020-08-02 07:44 | NUR ---
AM ROUNDING DONE WITH PATIENT SITTING UPRIGHT IN BED. ON 15 LITERS HIGH FLOW. ON HEART MONITOR. RIGHT HAND PIV WITH PROCALAMINE INFUSING AT 50 CC/HR AND NS AT 15 CC/HR. FOLWY CATH PATENT WITH YELLOW URINE. DENIES FURTHER NEEDS. ON VIDEO MONITOR
--- NOTE | 2020-08-02 07:52 | NUR ---
NON REBREATHER PLACED ONTO PATIENT HER O2 SAT IS 78%. AFTER APPROX. 2 MIN SATS ARE 92% WITH BOTH OXYGENS ON.
--- NOTE | 2020-08-02 09:44 | NUR ---
TAKEN OFF NON REBREATHER FOR MEDICATIONS.
--- NOTE | 2020-08-02 09:50 | NUR ---
PLACED BACK ON NON REBREATHER SATS DROP O 82% WHILE STILL ON 15 L HIGH FLOW
--- NOTE | 2020-08-02 14:51 | NUR ---
ALERT AND ORIENTED X3. ABGs COMPLETE. TRANSFER ORDERED FOR ICU. REPORT CALLED TO [facility]. TRANSFER TO ROOM 2314 VIA BED.
--- NOTE | 2020-08-02 14:58 | MORECARE ---
CASE MANAGEMENT DISCHARGE SUMMARY PATIENT: ADELFO DIALLO UNIT: [id number] ADM DATE: 07/03/20 AGE: 64 : 57 SEX: F ROOM/BED: D.2314 AUTHOR: ELIZABETH TORRES PHYSICIAN: REFERRING PHYSICIAN: BRIGIDA PATTERSON DO DATE OF SERVICE: 08/02/20 Discharge Plan Patient Name: ADELFO DIALLO Facility[facility]:[place] : 1955 Planned Disposition: Home with Home Health Anticipated Discharge Date: Discharge Date: Expected LOS: Initial Reviewer: [email or web address] Initial Review Date: 07/03/2020 Generated: 08/02/20 3:57 pm Comments DCP- Discharge Planning Updated by [email or web address]: Kathie Plascencia on 08/02/20 1:[address] Patient Name: ADELFO DIALLO Admission Status: ER Accout number: [id number] Admission Date: 07-03-2020 : 1955 Admission Diagnosis:INFCT FOL A PROCEDURE, DEEP INCISIONAL SURGICAL SITE, I Attending: BRIGIDA PATTERSON Current LOS: 30 Anticipated DC Date: Planned Disposition: Home with Home Health Primary Insurance: [facility] [employer] Discharge Planning Comments: CM SPOKE WITH PATIENT'S DAUGHTER CECILY AND THEY PLAN FOR HER TO GO HOME WITH HOME HEALTH AND MEDICAL EQUIPMENT WHEN STABLE FOR DC. SHE IS SET UP WITH [facility] AND HAS EQUIPMENT WITH [employer]. HER OXYGEN DEMAND HAS INCREASED TO 15 LITERS TODAY FROM 5LITERS YESTERDAY. CM WILL CONTINUE TO FOLLOW AND ASSIST NEEDED. Cap Coverer: Kathie Plascencia DCP- Discharge Planning Updated by [email or web address]: Roz Lopez on 07/29/20 11:[address] CM spoke with patient's daughter again regarding LTACH. She said the one in [place] may be ok and she will check on the 2 LTACH's in [place]. She refuses the LTACH's any where else on the list. She states she may consider patient to come home with [facility] if she can get a hospital bed and a emily lift. I explained the high oxygen demands she is requiring now and why LTACH would be a better/safer DC plan. She states she will call me back with her decision. DCP- Discharge Planning Updated by [email or web address]: Amanda Harris on 07/28/20 6:[address] CM attempted to call daughter but didn't get an answer. DCP- Discharge Planning Updated by [email or web address]: Roz Lopez on 07/27/20 11:[address] CM attempted to call daughter and the mailbox was full and could not leave a message. I will attempt again later in the day. CM will continue to follow and assist with discharge planning/needs. DCP- Discharge Planning Updated by [id number]: Amanda Harris on 07/25/20 1:[address] CM notified by physical therapy that patient is max assist x2 men. He is recommending placement v/s LTACH. CM will continue to follow and assist as needed with discharge planning / needs. DCP- Discharge Planning Updated by [email or web address]: Kathie Plascencia on 07/15/20 3:[address] Patient Name: ADELFO DIALLO Admission Status: ER Accout number: [id number] Admission Date: 07-03-2020 : 1955 Admission Diagnosis:INFCT FOL A PROCEDURE, DEEP INCISIONAL SURGICAL SITE, I Attending: BRIGIDA PATTERSON Current LOS: 12 Anticipated DC Date: Planned Disposition: Home with Home Health Primary Insurance: [employer] Discharge Planning Comments: SPOKE WITH NIDA BOWSER AND PATIENT IS NOT MEDICALLY READY TO DC. WHITE COUNT IS STILL ELEVATED AND CXR PENDING. [facility] WILL DELIVER HER OXYGEN TO HER ROOM TODAY AND [facility] WILL SEE HER WHEN SHE IS DISCHARGED. CM TO FOLLOW AND ASSIST NEEDED. Cap Coverer: Kathie Plascencia DCP- Discharge Planning Updated by [email or web address]: Domingo Stock on 07/05/20 3:[address] CM met with patient to complete DC plan and to evaluate needs. Patient lives at home with her daughter, Cecily Rendon ([phone]). CM discussed availability of home health, rehab services, and medical equipment. Patient Declined Inpatient Rehab but would like to resume [facility]. Spoke with Thais at [facility], patient is current and on hold for hospitalization. [facility] GWENDOLYN refusal for inpatient rehab and acceptance of [facility] signed and placed on chart. Patient voiced no other needs at this time and is satisfied with DC plan. DC IMM delivered, explained, signed by the patient, and placed in chart. Signed form also left with the patient. CM will continue to follow and will assist as needed with dc plans/needs. DCPIA - Discharge Planning Initial Assessment Updated by PATTI: Domingo Stock on 07/05/20 3:39 pm * Is the patient Alert and Oriented? Yes * How many steps to enter\exit or inside your home? RAMP * PCP FARO * Pharmacy [facility] * Preadmission Environment Home with Family * ADLs Partial Dependent * Partial ADLs (Assistance needed) Ambulation Bathing Dressing Eating Medication Management Toileting Transfers * Equipment Walker * Other Equipment n/a * List name and contact numbers for known caregivers / representatives who currently or will assist patient after discharge: CECILY FRANCISCO JAVIER (dtr) [phone] * Verbal permission to speak to the caregivers and representatives has been obtained from the patient. Yes * Community resources currently utilized Home Health * Please name any agencies selected above. [facility] * Additional services required to return to the preadmission environment? Yes * Can the patient safely return to the preadmission environment? Yes * Has this patient been hospitalized within the prior 30 days at any hospital? No Coverage Notice Reviewer: PATTI Stock Notice Issued Date-Time: 07/05/2020 15:25 Notice Type: IM Discharge Notice Notice Delivered To: Patient Relationship to Patient: Self Xm1 Tank Driver Name: Delivery Method: HAND - Hand Delivered Sirena Days: Prior Verbal Notification: Recipient Understood Notice: Yes Recipient Signature: Yes Med Rec Note Co-signed by Attending: Coverage Notice Comment: DC IMM delivered, explained, signed by the patient, and placed in chart. Reviewer: [email or web address] Stock Notice Issued Date-Time: 07/05/2020 15:25 Notice Type: Patient Choice Letter Notice Delivered To: Patient Relationship to Patient: Self Xm1 Tank Driver Name: Delivery Method: HAND - Hand Delivered Sirena Days: Prior Verbal Notification: Recipient Understood Notice: Yes Recipient Signature: Yes Med Rec Note Co-signed by Attending: Coverage Notice Comment: [facility] Last DP export: 07/29/20 11:12 a Patient Name: ADELFO DIALLO Page [phone] at 1458 All edits/amendments must be made on the electronic document DICTATION DATE: 08/02/201457 CLINICAL INSTRUCTOR: COOPER 08/02/201457 RPT#: [id number] [place] DATE: STATUS: ADM IN [facility] [address] [place] [address] END OF REPORT
[2020-08-03] VITALS (23 sets, daily range): BP systolic 150–180; BP diastolic 82–101
[2020-08-03 05:01] LABS: BASOPHILS 0.1 % (0-2); EOSINOPHILS 0.1 % (0-7); HEMATOCRIT 31.3 % (36.0-48.0); HEMOGLOBIN 9.4 g/dL (12-16); IMMATURE GRANULOCYTES 0.2 % (0-5); LYMPHOCYTE ABS# 0.59 10x3/uL (1.18-3.74); LYMPHOCYTES 5.2 % (15-50); MCH 27.1 pg (26.0-34.0); MCV 90.2 fL (80.0-100.0); MEAN PLATELET VOLUME 9.9 fL (7.4-10.4); MONOCYTES 3.5 % (2-11); NEUTROPHILS 90.9 % (40-80); PLATELET COUNT 352 10x3/uL (130-400); RBC 3.47 10x6/uL (4.00-5.40); RDW 15.4 % (11.5-14.5)
[2020-08-03 05:13] LABS: WBC 11.3 10x3/uL (4.8-10.8)
[2020-08-03 05:27] LABS: ALBUMIN 1.7 g/dL (3.4-5.0); ANION GAP 7.8 mmol/L (8-16); BILIRUBIN - TOTAL 0.42 mg/dL (0.2-1.3); CALCIUM 8.7 mg/dL (8.5-10.1); CARBON DIOXIDE 28.9 mmol/L (21.0-32.0); CREATININE - SERUM 0.9 mg/dL (0.6-1.3); MAGNESIUM - SERUM 2.1 mg/dL (1.8-2.4); PHOSPHOROUS 3.7 mg/dL (2.5-4.9); POTASSIUM - SERUM 4.7 mmol/L (3.5-5.1); PROTEIN - SERUM 5.6 g/dL (6.4-8.2)
--- NOTE | 2020-08-03 11:21 | NUR ---
PT DTR CALLED FOR UPDATE. UPDATED ON PT STATUS. ALL QUESTIONS AND CONCERNS ADDRESSED. DTR STATES PT HAS HAD SOME SWALLOWING ISSUES IN PAST, NOTIFIED DR PERAZA AND PT IS TO ONLY HAVE LIQUIDS UNTIL ST RE-EVALUATES PT.
[2020-08-04] VITALS (24 sets, daily range): BP systolic 130–177; BP diastolic 77–129
[2020-08-04 04:24] LABS: BASOPHILS 0.1 % (0-2); EOSINOPHILS 0.1 % (0-7); HEMATOCRIT 32.1 % (36.0-48.0); HEMOGLOBIN 9.9 g/dL (12-16); IMMATURE GRANULOCYTES 0.3 % (0-5); LYMPHOCYTE ABS# 0.72 10x3/uL (1.18-3.74); LYMPHOCYTES 4.6 % (15-50); MCH 27.7 pg (26.0-34.0); MCHC 30.8 g/dL (31.0-37.0); MCV 89.7 fL (80.0-100.0); MEAN PLATELET VOLUME 9.8 fL (7.4-10.4); MONOCYTES 4.9 % (2-11); NEUTROPHIL ABS# 14.04 10x3/uL (1.56-6.13); PLATELET COUNT 389 10x3/uL (130-400); RBC 3.58 10x6/uL (4.00-5.40); RDW 15.2 % (11.5-14.5)
[2020-08-04 04:46] LABS: WBC 15.6 10x3/uL (4.8-10.8)
[2020-08-04 04:54] LABS: ALBUMIN 1.7 g/dL (3.4-5.0); ALKALINE PHOSPHATASE 72 U/L (30-120); ALT (SGPT) 10 U/L (10-68); BILIRUBIN - TOTAL 0.36 mg/dL (0.2-1.3); CALC OSMOLALITY 279 mosm/kg (275-300); CALCIUM 8.4 mg/dL (8.5-10.1); CHLORIDE - SERUM 100 mmol/L (98-107); CREATININE - SERUM 0.8 mg/dL (0.6-1.3); GLUCOSE 150 mg/dL (74-106); MAGNESIUM - SERUM 2.2 mg/dL (1.8-2.4); POTASSIUM - SERUM 4.8 mmol/L (3.5-5.1); PROTEIN - SERUM 5.8 g/dL (6.4-8.2); SODIUM 134 mmol/L (136-145); UREA NITROGEN 39 mg/dL (7-18); eGFR NON AFRICAN AMERICAN 77 mL/min (90-120)
--- NOTE | 2020-08-04 06:51 | NUR ---
PATIENT WITH NO ACUTE EVENTS OVER NIGHT. CHG BATH AND KYLE CARE DONE. PATIENT REMAINS ON 15L HF NC.
[2020-08-05] VITALS (22 sets, daily range): BP systolic 118–175; BP diastolic 75–121
--- NOTE | 2020-08-05 05:52 | NUR ---
Patient was given hydralazine prn. Bp has since improved. Will continue to monintor.
--- NOTE | 2020-08-05 06:40 | NUR ---
PATIENT HAD AN EPISODE OF ANIETY AT THE BEGINNING OF THE SHIFT WITH NOT BEING ABLE TO TOLERATE BIPAP. AFTER WE SWITCHED BACK TO NONREBREATHER, PATIENT WAS MORE CALM. PATIENT HAD A CHG BATH AND KYLE CARE. NOTED TO HAVE A LARGE DTI ON SACRUM. APPLIED CREAM TO SACRUM. CHANGED DRESSING TO R FOOT AMPUTATION.
--- NOTE | 2020-08-05 10:06 | NUR ---
Nutrition follow-up: Pt now in ICU 2/2 breathing issues Diet: Renal consistent CHO mechanical soft PO intake has been ~50-75% of meals ProcalAmine PPN @ 75 ml/hr Labs reviewed No po intake recorded since tx to ICU Wt: 257# Will continue to provide food choices and honor food preferences within diet restrictions. Follow-up: 08/08/20
--- NOTE | 2020-08-05 20:00 | NUR ---
Patient repositioned and turned off of wounds. Patient resting comfortably.
--- NOTE | 2020-08-05 22:00 | NUR ---
patient turned and repositioned.
--- NOTE | 2020-08-05 22:00 | NUR ---
Patient turned and repostioned.
[2020-08-06] VITALS (23 sets, daily range): BP systolic 135–167; BP diastolic 35–105
--- NOTE | 2020-08-06 | NUR ---
Patient turned and repositioned. Resting very well.
--- NOTE | 2020-08-06 02:00 | NUR ---
Patient turned and repositioned. Orders to place a new astorga catheter were given to the day shift nurse. Astorga was leaking and becoming clogged as well. New astorga catheter has been successfully placed . Urine was yellow with a large amount of what appeared to be yeast and sediment. Patient tolerated well. Patient could benefit from having her astorga flushed x2 qshift. Sacral wound was cleansed with saline and sacral dressing was applied. Skin protectant was applied to outer areas. Will continue to monitor.
--- NOTE | 2020-08-06 03:55 | NUR ---
Patient turned and repositioned. Bed linen has been changed. Patient mistakenly removed right 20 g Iv, but a right 22 g was placed in the right hand. Blood return noted; IV patent.
--- NOTE | 2020-08-06 05:53 | NUR ---
Possible plan for wound vac per .
[2020-08-06 14:02] LABS: BASOPHILS 0 % (0-2); EOSINOPHILS 0.1 % (0-7); HEMATOCRIT 30.9 % (36.0-48.0); HEMOGLOBIN 9.6 g/dL (12-16); IMMATURE GRANULOCYTES 0.4 % (0-5); LYMPHOCYTE ABS# 0.49 10x3/uL (1.18-3.74); LYMPHOCYTES 3.5 % (15-50); MCH 28.2 pg (26.0-34.0); MCHC 31.1 g/dL (31.0-37.0); MCV 90.6 fL (80.0-100.0); MEAN PLATELET VOLUME 9.7 fL (7.4-10.4); MONOCYTES 4.7 % (2-11); NEUTROPHIL ABS# 12.92 10x3/uL (1.56-6.13); NEUTROPHILS 91.3 % (40-80); PLATELET COUNT 276 10x3/uL (130-400); RBC 3.41 10x6/uL (4.00-5.40); RDW 15.2 % (11.5-14.5); WBC 14.1 10x3/uL (4.8-10.8)
[2020-08-06 14:30] LABS: ALBUMIN 1.8 g/dL (3.4-5.0); BILIRUBIN - TOTAL 0.28 mg/dL (0.2-1.3); CALCIUM 8.3 mg/dL (8.5-10.1); CARBON DIOXIDE 27.6 mmol/L (21.0-32.0); CREATININE - SERUM 0.9 mg/dL (0.6-1.3); PROTEIN - SERUM 5.2 g/dL (6.4-8.2)
[2020-08-06 14:41] LABS: ANION GAP 10.3 mmol/L (8-16); POTASSIUM - SERUM 5.9 mmol/L (3.5-5.1)
--- NOTE | 2020-08-06 19:55 | NUR ---
Paged Dr. Barclay and notified him potassium of 5.9. Ordered kayexalte 15 g. Will recheck with am labs.
[2020-08-07] VITALS (23 sets, daily range): BP systolic 135–178; BP diastolic 72–95; Ht 167.6 cm; Wt 119.3 kg
--- NOTE | 2020-08-07 02:30 | NUR ---
Placed procal on hold until Dr. Barclay is paged and potassium labs are back. Dr. Barclay previously asked if the patient was getting any potassium via the MAR. Unfortunately, Procal does have potassium in it.
--- NOTE | 2020-08-07 03:00 | NUR ---
Patient began to de-sat a few times during the night to the upper 80s. When patient is repositioned she shows improvement and is now ranging between 91-96.
[2020-08-07 05:13] LABS: BASOPHILS 0.1 % (0-2); EOSINOPHILS 0 % (0-7); HEMATOCRIT 32.2 % (36.0-48.0); HEMOGLOBIN 9.8 g/dL (12-16); IMMATURE GRANULOCYTES 0.4 % (0-5); LYMPHOCYTE ABS# 0.34 10x3/uL (1.18-3.74); LYMPHOCYTES 2.2 % (15-50); MCH 27.8 pg (26.0-34.0); MCHC 30.4 g/dL (31.0-37.0); MCV 91.2 fL (80.0-100.0); MEAN PLATELET VOLUME 9.4 fL (7.4-10.4); MONOCYTES 4.8 % (2-11); NEUTROPHIL ABS# 14.54 10x3/uL (1.56-6.13); NEUTROPHILS 92.5 % (40-80); PLATELET COUNT 276 10x3/uL (130-400); RBC 3.53 10x6/uL (4.00-5.40); RDW 15.2 % (11.5-14.5); WBC 15.7 10x3/uL (4.8-10.8)
[2020-08-07 05:36] LABS: ALBUMIN 1.9 g/dL (3.4-5.0); BILIRUBIN - TOTAL 0.32 mg/dL (0.2-1.3); CALCIUM 8.5 mg/dL (8.5-10.1); CARBON DIOXIDE 29.5 mmol/L (21.0-32.0); PROTEIN - SERUM 5.8 g/dL (6.4-8.2)
[2020-08-07 05:39] LABS: ANION GAP 10.8 mmol/L (8-16); POTASSIUM - SERUM 6.3 mmol/L (3.5-5.1)
--- NOTE | 2020-08-07 06:37 | NUR ---
Paged Dr. Barclay and notified him of potassium rising to 6.3. He ordered 1/2 amp of D50 AND 10 U OF INSULIN.
--- NOTE | 2020-08-07 10:00 | NUR ---
NEPHROLOGY CONSULTED AND DR SALAZAR NOTIFIED. ORDERS REC' FOR K+ AND WILL RE DRAW AT 1500.
--- NOTE | 2020-08-07 14:18 | NUR ---
Nutrition follow-up: Pt receiving a renal diet with poor po intake at this time ProcalAmine PPN discontinued due to elevated K Labs reviewed Wt: 279# No BM charted; on colace Will need nutrition support started due to poor po intake. Recommend PEG tube vs NGT placement and TF started of Suplena @ goal rate of 50 ml/hr RDN follow-up: 08/10/20
[2020-08-07 16:02] LABS: ANION GAP 10.6 mmol/L (8-16); CALCIUM 8.5 mg/dL (8.5-10.1); CARBON DIOXIDE 28.5 mmol/L (21.0-32.0); CREATININE - SERUM 1.1 mg/dL (0.6-1.3)
[2020-08-07 16:04] LABS: POTASSIUM - SERUM 6.1 mmol/L (3.5-5.1)
[2020-08-08] VITALS (23 sets, daily range): BP systolic 126–1331; BP diastolic 73–128
[2020-08-08 05:39] LABS: BASOPHILS 0 % (0-2); EOSINOPHILS 0.1 % (0-7); HEMATOCRIT 32.9 % (36.0-48.0); HEMOGLOBIN 9.8 g/dL (12-16); IMMATURE GRANULOCYTES 0.3 % (0-5); LYMPHOCYTE ABS# 0.41 10x3/uL (1.18-3.74); LYMPHOCYTES 2.8 % (15-50); MCH 27.3 pg (26.0-34.0); MCHC 29.8 g/dL (31.0-37.0); MCV 91.6 fL (80.0-100.0); MEAN PLATELET VOLUME 9.8 fL (7.4-10.4); MONOCYTES 5.5 % (2-11); NEUTROPHIL ABS# 13.22 10x3/uL (1.56-6.13); NEUTROPHILS 91.3 % (40-80); PLATELET COUNT 293 10x3/uL (130-400); RBC 3.59 10x6/uL (4.00-5.40); RDW 15.2 % (11.5-14.5); WBC 14.5 10x3/uL (4.8-10.8)
[2020-08-08 06:01] LABS: ALBUMIN 1.9 g/dL (3.4-5.0); ANION GAP 7.8 mmol/L (8-16); BILIRUBIN - TOTAL 0.33 mg/dL (0.2-1.3); CALCIUM 8.5 mg/dL (8.5-10.1); CARBON DIOXIDE 29.8 mmol/L (21.0-32.0); CREATININE - SERUM 0.9 mg/dL (0.6-1.3); MAGNESIUM - SERUM 2.5 mg/dL (1.8-2.4); PHOSPHOROUS 3.7 mg/dL (2.5-4.9); POTASSIUM - SERUM 5.6 mmol/L (3.5-5.1); PROTEIN - SERUM 5.6 g/dL (6.4-8.2)
--- NOTE | 2020-08-08 10:20 | NUR ---
CONSULT CALLED TO NEPHROLOGY.
--- NOTE | 2020-08-08 13:03 | NUR ---
RIGHT JUG TLC PLACED AND XRAY ORDERED. BLOOD RETURN NOTED AND DRESSING INTACT.
[2020-08-08 19:40] LABS: CALC OSMOLALITY 288 mosm/kg (275-300); CALCIUM 7.8 mg/dL (8.5-10.1); CHLORIDE - SERUM 100 mmol/L (98-107); CREATININE - SERUM 0.8 mg/dL (0.6-1.3); GLUCOSE 171 mg/dL (74-106); SODIUM 135 mmol/L (136-145); UREA NITROGEN 55 mg/dL (7-18); eGFR NON AFRICAN AMERICAN 77 mL/min (90-120)
[2020-08-09] VITALS (25 sets, daily range): BP systolic 143–177; BP diastolic 53–136
[2020-08-09 04:08] LABS: BASOPHILS 0 % (0-2); EOSINOPHILS 0 % (0-7); HEMATOCRIT 32.3 % (36.0-48.0); HEMOGLOBIN 9.6 g/dL (12-16); IMMATURE GRANULOCYTES 0.4 % (0-5); LYMPHOCYTES 2.8 % (15-50); MCH 27.5 pg (26.0-34.0); MCHC 29.7 g/dL (31.0-37.0); MCV 92.6 fL (80.0-100.0); MEAN PLATELET VOLUME 9.7 fL (7.4-10.4); MONOCYTES 1.1 % (2-11); NEUTROPHIL ABS# 17.26 10x3/uL (1.56-6.13); NEUTROPHILS 95.7 % (40-80); RBC 3.49 10x6/uL (4.00-5.40); RDW 15.2 % (11.5-14.5)
[2020-08-09 04:10] LABS: PLATELET COUNT 221 10x3/uL (130-400)
[2020-08-09 04:20] LABS: ALBUMIN 1.8 g/dL (3.4-5.0); ALKALINE PHOSPHATASE 122 U/L (30-120); ALT (SGPT) 29 U/L (10-68); BILIRUBIN - TOTAL 0.32 mg/dL (0.2-1.3); CALC OSMOLALITY 282 mosm/kg (275-300); CALCIUM 7.7 mg/dL (8.5-10.1); CARBON DIOXIDE 29.7 mmol/L (21.0-32.0); CHLORIDE - SERUM 95 mmol/L (98-107); CREATININE - SERUM 0.7 mg/dL (0.6-1.3); MAGNESIUM - SERUM 2.1 mg/dL (1.8-2.4); POTASSIUM - SERUM 5.2 mmol/L (3.5-5.1); PROTEIN - SERUM 5.2 g/dL (6.4-8.2); SODIUM 130 mmol/L (136-145); UREA NITROGEN 55 mg/dL (7-18); eGFR NON AFRICAN AMERICAN 90 mL/min (90-120)
[2020-08-09 04:21] LABS: GLUCOSE 220 mg/dL (74-106)
--- NOTE | 2020-08-09 07:20 | NUR ---
REPORT RECEIVED. ASSESSMENT COMPLETE PER FLOW SHEET. VSS. PT RESTING COMFORTABLY
--- NOTE | 2020-08-09 09:15 | NUR ---
DR BRITO AT BEDSIDE. GIVEN UDPATE. NEW ORDERS RECEIVED.
--- NOTE | 2020-08-09 10:37 | NUR ---
Nutrition consult: Received consult from Dr. Leal during IDT team rounds to start TPN today. CVL placed 08/08/20 Labs reviewed Wt: 253# Order for TPN @ 40 ml/hr placed. Will check TG. If WNL will start 20% 250 ml intralipids Q [address] RDN follow-up: 08/10/20
[2020-08-10] VITALS (22 sets, daily range): BP systolic 122–182; BP diastolic 52–102
[2020-08-10 05:14] LABS: BASOPHILS 0 % (0-2); EOSINOPHILS 0 % (0-7); HEMATOCRIT 33.3 % (36.0-48.0); HEMOGLOBIN 9.8 g/dL (12-16); IMMATURE GRANULOCYTES 0.4 % (0-5); LYMPHOCYTE ABS# 0.28 10x3/uL (1.18-3.74); LYMPHOCYTES 1.8 % (15-50); MCH 27.1 pg (26.0-34.0); MCHC 29.4 g/dL (31.0-37.0); MEAN PLATELET VOLUME 10.1 fL (7.4-10.4); MONOCYTES 1.1 % (2-11); NEUTROPHIL ABS# 15.43 10x3/uL (1.56-6.13); NEUTROPHILS 96.7 % (40-80); RBC 3.62 10x6/uL (4.00-5.40); RDW 15.1 % (11.5-14.5)
[2020-08-10 05:30] LABS: PLATELET COUNT 163 10x3/uL (130-400)
[2020-08-10 05:32] LABS: ALBUMIN 1.9 g/dL (3.4-5.0); ALKALINE PHOSPHATASE 126 U/L (30-120); ALT (SGPT) 27 U/L (10-68); BILIRUBIN - TOTAL 0.31 mg/dL (0.2-1.3); CALC OSMOLALITY 289 mosm/kg (275-300); CALCIUM 8.1 mg/dL (8.5-10.1); CARBON DIOXIDE 33.5 mmol/L (21.0-32.0); CHLORIDE - SERUM 101 mmol/L (98-107); CREATININE - SERUM 0.7 mg/dL (0.6-1.3); GLUCOSE 261 mg/dL (74-106); PHOSPHOROUS 2.4 mg/dL (2.5-4.9); POTASSIUM - SERUM 5.1 mmol/L (3.5-5.1); PROTEIN - SERUM 5.4 g/dL (6.4-8.2); SODIUM 134 mmol/L (136-145); UREA NITROGEN 50 mg/dL (7-18); eGFR NON AFRICAN AMERICAN 90 mL/min (90-120)
--- NOTE | 2020-08-10 07:17 | NUR ---
PT'S B/P HAS BEEN HIGH. HYDRALAZINE PRN ADMINISTERED. NEPHROLOGY DR SALAZAR MADE AWARE. DR WILL BE INCREASING THE HYDRALAZINE DOSE
--- NOTE | 2020-08-10 09:49 | NUR ---
Nutrition follow-up: Pt discussed during IDT team rounds. TPN infusing @ 40 ml/hr - D20W,5%AA Labs reviewed Will continue current TPN formula today and review again 08/11/20.
[2020-08-11] VITALS (23 sets, daily range): BP systolic 118–167; BP diastolic 56–97
--- NOTE | 2020-08-11 04:46 | NUR ---
0400 sat 88% on 90% bipap. increased fio2 to 100 and sat increased 90-92%
[2020-08-11 05:02] LABS: BASOPHILS 0 % (0-2); EOSINOPHILS 0 % (0-7); HEMATOCRIT 33.2 % (36.0-48.0); HEMOGLOBIN 9.6 g/dL (12-16); LYMPHOCYTE ABS# 0.24 10x3/uL (1.18-3.74); LYMPHOCYTES 2.5 % (15-50); MCH 27.4 pg (26.0-34.0); MCHC 28.9 g/dL (31.0-37.0); MEAN PLATELET VOLUME 10.2 fL (7.4-10.4); MONOCYTES 3.1 % (2-11); NEUTROPHIL ABS# 9.07 10x3/uL (1.56-6.13); NEUTROPHILS 93.4 % (40-80); PLATELET COUNT 139 10x3/uL (130-400); RDW 15.2 % (11.5-14.5)
[2020-08-11 05:05] LABS: MCV 94.9 fL (80.0-100.0); WBC 9.7 10x3/uL (4.8-10.8)
[2020-08-11 05:20] LABS: ALBUMIN 1.9 g/dL (3.4-5.0); ALKALINE PHOSPHATASE 131 U/L (30-120); ALT (SGPT) 27 U/L (10-68); BILIRUBIN - TOTAL 0.18 mg/dL (0.2-1.3); CALCIUM 8.4 mg/dL (8.5-10.1); CARBON DIOXIDE 36.1 mmol/L (21.0-32.0); CHLORIDE - SERUM 102 mmol/L (98-107); CREATININE - SERUM 0.8 mg/dL (0.6-1.3); PROTEIN - SERUM 5.3 g/dL (6.4-8.2); SODIUM 138 mmol/L (136-145); UREA NITROGEN 54 mg/dL (7-18); eGFR NON AFRICAN AMERICAN 77 mL/min (90-120)
[2020-08-11 05:33] LABS: CALC OSMOLALITY 304 mosm/kg (275-300); GLUCOSE 358 mg/dL (74-106); PHOSPHOROUS 3.8 mg/dL (2.5-4.9)
--- NOTE | 2020-08-11 10:17 | NUR ---
Nutrition reassessment/follow-up: Pt now intubated; sedated with fentanyl and propofol TPN @ 40 will discontinue after current bag empty TF of Suplena to begin today via OGT Labs reviewed Ht: 5'6" Wt: 258# IBW: 130# +/-10% AdjBW: 162# (73.6 kg) Inadequate oral intake R/T intubation AEB NPO at this time. Estimated nutritional needs based on AdjBW are: 6749-0242 kcal (25-30 kcal/AdjBW) 90-100g/kg Actual BW 6678-3201 ml/kg AdjBW Gaols: - Pt will tolerated Suplena @ goal rate of 50 ml/hr - Will meet at least 75% of estimated fluid needs - Stable dry wt - 10# Interventions: RDN will order Suplena to begin @ 20 ml/hr with gradual increase to goal rate of 50 ml/hr with 20 ml H2O flush q hour after goal rate reached. RDN follow-up: 08/12/20
[2020-08-11 22:15] LABS: CKMB 0.3 U/L (0.0-3.6); CREATINE KINASE 44 UL (21-215)
[2020-08-11 22:19] LABS: TROPONIN-I 0.129 ng/mL (0.000-0.060)
--- NOTE | 2020-08-11 22:51 | NUR ---
2126-SPOKE TO RAKESH, CHRISTINE NOTICED THAT PATIENT HAD ST ELEVATION ON MONITOR AND HAD IT FOR A FEW DAYS PER STRIPS ON CHART. SHIPPING AND RECEIVING COORDINATOR ORDERED TO GET CARDIAC ENZYMES AND CONSULT CARDS NOW. 2216- SPOKE TO DR. BUNDY ABOUT PATIENT. READ HIM EKG RESULTS. ORDERED TO START CARDIZEM ONLY IF HR >120S. 2225- CALLED DR. BUNDY ABOUT CRITICAL TROPONIN. ORDERED NOT TO CALL NEXT TROPONIN UNLESS > 1.
[2020-08-12] VITALS (24 sets, daily range): BP systolic 108–158; BP diastolic 52–79
[2020-08-12 04:16] LABS: BASOPHILS 0 % (0-2); EOSINOPHILS 0.1 % (0-7); HEMATOCRIT 31.9 % (36.0-48.0); HEMOGLOBIN 9.4 g/dL (12-16); IMMATURE GRANULOCYTES 0.6 % (0-5); LYMPHOCYTE ABS# 0.51 10x3/uL (1.18-3.74); LYMPHOCYTES 5.3 % (15-50); MCH 27.2 pg (26.0-34.0); MCHC 29.5 g/dL (31.0-37.0); MEAN PLATELET VOLUME 10.7 fL (7.4-10.4); MONOCYTES 5.4 % (2-11); NEUTROPHIL ABS# 8.59 10x3/uL (1.56-6.13); NEUTROPHILS 88.6 % (40-80); PLATELET COUNT 118 10x3/uL (130-400); RBC 3.45 10x6/uL (4.00-5.40); RDW 15.4 % (11.5-14.5); WBC 9.7 10x3/uL (4.8-10.8)
[2020-08-12 04:22] LABS: MCV 92.5 fL (80.0-100.0)
[2020-08-12 04:56] LABS: ALBUMIN 1.8 g/dL (3.4-5.0); ALKALINE PHOSPHATASE 145 U/L (30-120); BILIRUBIN - TOTAL 0.39 mg/dL (0.2-1.3); CALCIUM 8.5 mg/dL (8.5-10.1); CARBON DIOXIDE 35.9 mmol/L (21.0-32.0); CHLORIDE - SERUM 106 mmol/L (98-107); CKMB 0.4 U/L (0.0-3.6); CREATINE KINASE 54 UL (21-215); CREATININE - SERUM 0.7 mg/dL (0.6-1.3); POTASSIUM - SERUM 5.4 mmol/L (3.5-5.1); PROTEIN - SERUM 5.1 g/dL (6.4-8.2); SODIUM 142 mmol/L (136-145); UREA NITROGEN 52 mg/dL (7-18); eGFR NON AFRICAN AMERICAN 90 mL/min (90-120)
[2020-08-12 05:05] LABS: ALT (SGPT) 35 U/L (10-68); CALC OSMOLALITY 301 mosm/kg (275-300); GLUCOSE 187 mg/dL (74-106); PHOSPHOROUS 1.8 mg/dL (2.5-4.9)
[2020-08-12 05:06] LABS: TROPONIN-I 0.154 ng/mL (0.000-0.060)
--- NOTE | 2020-08-12 06:30 | NUR ---
PATIENT WITH NO ACUTE EVENTS OVERNIGHT. PATIENT RECEIVED CHG BATH WITH KYLE CARE. CENTRAL LINE DRESSING CHANGED. STARTED TF SUPLENA AT 20CC/HR AT 2000 AND PATIENT DID NOT HAVE RESIDUALS, INCREASED TF AT 0400 TO 30CC/HR. MOUTH CARE AND TURNING Q2HR.
[2020-08-12 11:11] LABS: CKMB 0.8 U/L (0.0-3.6); CREATINE KINASE 31 UL (21-215)
[2020-08-12 11:12] LABS: TROPONIN-I 0.743 ng/mL (0.000-0.060)
--- NOTE | 2020-08-12 12:45 | NUR ---
Nutrition follow-up: Pt discussed during IDT team rounds Intabutated, sedated with propofol @ 14.2 ml/hr Labs reviewed Suplena infusing @ 30 ml/hr -> goal rate 50 ml/hr Wt: 262# RDN follow-up: 08/15/20
[2020-08-13] VITALS (24 sets, daily range): BP systolic 101–136; BP diastolic 51–94
[2020-08-13 04:53] LABS: BASOPHILS 0 % (0-2); EOSINOPHILS 0.6 % (0-7); HEMOGLOBIN 8.6 g/dL (12-16); IMMATURE GRANULOCYTES 0.5 % (0-5); LYMPHOCYTE ABS# 0.51 10x3/uL (1.18-3.74); LYMPHOCYTES 7.8 % (15-50); MCH 27.5 pg (26.0-34.0); MCHC 29.7 g/dL (31.0-37.0); MCV 92.7 fL (80.0-100.0); MEAN PLATELET VOLUME 10.9 fL (7.4-10.4); MONOCYTES 5.2 % (2-11); NEUTROPHIL ABS# 5.64 10x3/uL (1.56-6.13); NEUTROPHILS 85.9 % (40-80); RBC 3.13 10x6/uL (4.00-5.40)
[2020-08-13 04:58] LABS: ANION GAP 1.2 mmol/L (8-16); CALCIUM 8.2 mg/dL (8.5-10.1); CARBON DIOXIDE 38.7 mmol/L (21.0-32.0); CREATININE - SERUM 0.9 mg/dL (0.6-1.3); PHOSPHOROUS 2.1 mg/dL (2.5-4.9); POTASSIUM - SERUM 4.9 mmol/L (3.5-5.1)
[2020-08-13 05:11] LABS: PLATELET COUNT 58 10x3/uL (130-400); WBC 6.6 10x3/uL (4.8-10.8)
[2020-08-13 05:43] LABS: PLATELET ESTIMATE DECREASED
--- NOTE | 2020-08-13 06:30 | NUR ---
PATIENT WITH NO ACUTE CHANGES OVER NIGHT. CHANGED FOOT DRESSING AND TF BAG. PATINET RECEIVED CHG BATH AND KYLE CARE. TURNED Q2H AND CREAM APPLIED TO SACRUM.
--- NOTE | 2020-08-13 09:42 | NUR ---
0900 DR BRITO IN UNIT-REVIEWED CURRENT STATUS-NO FURTHER ORDERS AT THIS TIME 0930-RENAL SERVICES AT SIDE OF BED STATUS REPORT GIVEN
--- NOTE | 2020-08-13 10:13 | NUR ---
DR MAC AT BEDSIDE -UPDATE GIVEN
[2020-08-14] VITALS (24 sets, daily range): BP systolic 100–147; BP diastolic 45–97
--- NOTE | 2020-08-14 02:59 | NUR ---
PATIENT DID NOT HAVE ANY URINE OUTPUT FOR 2 HOURS.I FLUSHED THE KYLE WITH 10CC OF SALINE WITH NO AVAIL. BLADDER SCANNED AND PATIENT BLADDER HAD OVER A LITER OF URINE. KYLE WAS DISCONTINUED AND A NEW 18F KYLE WAS INSERTED WITH URINE RETURNED.
[2020-08-14 04:30] LABS: BASOPHILS 0 % (0-2); EOSINOPHILS 0.5 % (0-7); HEMATOCRIT 29.2 % (36.0-48.0); HEMOGLOBIN 8.5 g/dL (12-16); IMMATURE GRANULOCYTES 0.7 % (0-5); LYMPHOCYTE ABS# 0.75 10x3/uL (1.18-3.74); LYMPHOCYTES 13.1 % (15-50); MCHC 29.1 g/dL (31.0-37.0); MCV 92.7 fL (80.0-100.0); MEAN PLATELET VOLUME 12.5 fL (7.4-10.4); MONOCYTES 3.8 % (2-11); NEUTROPHIL ABS# 4.68 10x3/uL (1.56-6.13); NEUTROPHILS 81.9 % (40-80); PLATELET COUNT 57 10x3/uL (130-400); RBC 3.15 10x6/uL (4.00-5.40); RDW 15.9 % (11.5-14.5); WBC 5.7 10x3/uL (4.8-10.8)
[2020-08-14 04:42] LABS: ANION GAP 3.7 mmol/L (8-16); CALCIUM 8.1 mg/dL (8.5-10.1); CARBON DIOXIDE 37.1 mmol/L (21.0-32.0); CREATININE - SERUM 0.9 mg/dL (0.6-1.3); POTASSIUM - SERUM 4.8 mmol/L (3.5-5.1)
--- NOTE | 2020-08-14 10:30 | NUR ---
UPDATE GIVEN TO FAMILY AT THIS TIME, PASSWORD GIVEN
[2020-08-15] VITALS (23 sets, daily range): BP systolic 107–155; BP diastolic 58–87
--- NOTE | 2020-08-15 01:38 | NUR ---
PATIENT BG 451, RECHECKED 458. NOTIFIED CHRISTINE CAMERON AT 8055. TOLD HER THAT PATIENT WAS PREVIOUSLY ON LANTUS AND THAT DR. SALAZAR HELD IT LAST WEEK. SHE ORDERED TO CALL RENAL TO GET FURTHER ORDERS. 2335- PAGED DR NAVARRO [phone]-PAGED DR NAVARRO [phone]-PAGED DR NAVARRO [phone]-DR NAVARRO ORDERED TO RESTART LANTUS 30UNITS QHS.
[2020-08-15 04:42] LABS: BASOPHILS 0 % (0-2); EOSINOPHILS 0.4 % (0-7); HEMATOCRIT 30.3 % (36.0-48.0); HEMOGLOBIN 8.8 g/dL (12-16); IMMATURE GRANULOCYTES 1.4 % (0-5); LYMPHOCYTE ABS# 0.57 10x3/uL (1.18-3.74); MCH 27.2 pg (26.0-34.0); MCV 93.8 fL (80.0-100.0); MEAN PLATELET VOLUME 13.7 fL (7.4-10.4); MONOCYTES 7.1 % (2-11); NEUTROPHIL ABS# 5.93 10x3/uL (1.56-6.13); NEUTROPHILS 83.1 % (40-80); RBC 3.23 10x6/uL (4.00-5.40); RDW 16.2 % (11.5-14.5); WBC 7.1 10x3/uL (4.8-10.8)
[2020-08-15 04:51] LABS: PLATELET COUNT 70 10x3/uL (130-400)
[2020-08-15 04:53] LABS: ANION GAP 4.6 mmol/L (8-16); CALCIUM 7.9 mg/dL (8.5-10.1); CARBON DIOXIDE 35.8 mmol/L (21.0-32.0); CREATININE - SERUM 0.9 mg/dL (0.6-1.3); POTASSIUM - SERUM 4.4 mmol/L (3.5-5.1)
--- NOTE | 2020-08-15 06:56 | NUR ---
NO ACUTE EVENTS OVER NIGHT. PATIENT REMAINED ON 40% FI02 PER VENT. TURNED Q2H, KYLE CARE AND CREAM TO SACURM.
--- NOTE | 2020-08-15 11:56 | MORECARE ---
CASE MANAGEMENT DISCHARGE SUMMARY PATIENT: ADELFO DIALLO UNIT: [id number] ADM DATE: 07/03/20 AGE: 64 : 57 SEX: F ROOM/BED: D.2314 AUTHOR: ELIZABETH TORRES PHYSICIAN: REFERRING PHYSICIAN: BRIGIDA PATTERSON DO DATE OF SERVICE: 08/15/20 Discharge Plan Patient Name: ADELFO DIALLO Facility: [facility]:[place] : 1955 Planned Disposition: Home with Home Health Anticipated Discharge Date: Discharge Date: Expected LOS: Initial Reviewer: [email or web address] Initial Review Date: 07/03/2020 Generated: 08/15/20 12:56 pm Comments DCP- Discharge Planning Updated by [email or web address]: Kathie Plascencia on 08/02/20 1:[address] Patient Name: ADELFO DIALLO Admission Status: ER Accout number: [id number] Admission Date: 07-03-2020 : 1955 Admission Diagnosis:INFCT FOL A PROCEDURE, DEEP INCISIONAL SURGICAL SITE, I Attending: BRIGIDA PATTERSON Current LOS: 30 Anticipated DC Date: Planned Disposition: Home with Home Health Primary Insurance: [facility] [employer] Discharge Planning Comments: CM SPOKE WITH PATIENT'S DAUGHTER CECILY AND THEY PLAN FOR HER TO GO HOME WITH HOME HEALTH AND MEDICAL EQUIPMENT WHEN STABLE FOR DC. SHE IS SET UP WITH [facility] AND HAS EQUIPMENT WITH [employer]. HER OXYGEN DEMAND HAS INCREASED TO 15 LITERS TODAY FROM 5LITERS YESTERDAY. CM WILL CONTINUE TO FOLLOW AND ASSIST NEEDED. Roll Wrapper: Kathie Plascencia DCP- Discharge Planning Updated by [email or web address]: Roz Lopez on 07/29/20 11:[address] CM spoke with patient's daughter again regarding LTACH. She said the one in [place] may be ok and she will check on the 2 LTACH's in [place]. She refuses the LTACH's any where else on the list. She states she may consider patient to come home with [facility] if she can get a hospital bed and a emily lift. I explained the high oxygen demands she is requiring now and why LTACH would be a better/safer DC plan. She states she will call me back with her decision. DCP- Discharge Planning Updated by [id number]: Amanda Harris on 07/28/20 6:[address] CM attempted to call daughter but didn't get an answer. DCP- Discharge Planning Updated by [email or web address]: Roz Lopez on 07/27/20 11:[address] CM attempted to call daughter and the mailbox was full and could not leave a message. I will attempt again later in the day. CM will continue to follow and assist with discharge planning/needs. DCP- Discharge Planning Updated by [email or web address]: Amanda Harris on 07/25/20 1:[address] CM notified by physical therapy that patient is max assist x2 men. He is recommending placement v/s LTACH. CM will continue to follow and assist as needed with discharge planning / needs. DCP- Discharge Planning Updated by [email or web address]: Kathie Plascencia on 07/15/20 3:[address] Patient Name: ADELFO DIALLO Admission Status: ER Accout number: [id number] Admission Date: 07-03-2020 : 1955 Admission Diagnosis:INFCT FOL A PROCEDURE, DEEP INCISIONAL SURGICAL SITE, I Attending: BRIGIDA PATTERSON Current LOS: 12 Anticipated DC Date: Planned Disposition: Home with Home Health Primary Insurance: [facility] [employer] Discharge Planning Comments: SPOKE WITH NIDA BOWSER AND PATIENT IS NOT MEDICALLY READY TO DC. WHITE COUNT IS STILL ELEVATED AND CXR PENDING. [facility] WILL DELIVER HER OXYGEN TO HER ROOM TODAY AND [facility] WILL SEE HER WHEN SHE IS DISCHARGED. CM TO FOLLOW AND ASSIST NEEDED. Roll Wrapper: Kathie Plascencia DCP- Discharge Planning Updated by [id number]: Domingo Stock on 07/05/20 3:[address] CM met with patient to complete DC plan and to evaluate needs. Patient lives at home with her daughter, Cecily Mcintyre ([phone]). CM discussed availability of home health, rehab services, and medical equipment. Patient Declined Inpatient Rehab but would like to resume [facility]. Spoke with Thais at [facility], patient is current and on hold for hospitalization. Clinicals faxed to [facility]. GWENDOLYN refusal for inpatient rehab and acceptance of [facility] signed and placed on chart. Patient voiced no other needs at this time and is satisfied with DC plan. DC IMM delivered, explained, signed by the patient, and placed in chart. Signed form also left with the patient. CM will continue to follow and will assist as needed with dc plans/needs. DCPIA - Discharge Planning Initial Assessment Updated by PATTI: Domingo Stock on 07/05/20 3:39 pm * Is the patient Alert and Oriented? Yes * How many steps to enter\exit or inside your home? RAMP * PCP FARO * Pharmacy [facility] * Preadmission Environment Home with Family * ADLs Partial Dependent * Partial ADLs (Assistance needed) Ambulation Bathing Dressing Eating Medication Management Toileting Transfers * Equipment Walker * Other Equipment n/a * List name and contact numbers for known caregivers / representatives who currently or will assist patient after discharge: CECILY MCINTYRE (dtr) [phone] * Verbal permission to speak to the caregivers and representatives has been obtained from the patient. Yes * Community resources currently utilized Home Health * Please name any agencies selected above. [facility] * Additional services required to return to the preadmission environment? Yes * Can the patient safely return to the preadmission environment? Yes * Has this patient been hospitalized within the prior 30 days at any hospital? No External Providers External Provider[place] [facility] [place] Date: Service Request Date: Service Type: Resolution: Reviewer: Comments: Coverage Notice Reviewer: [email or web address] Stock Notice Issued Date-Time: 07/05/2020 15:25 Notice Type: IM Discharge Notice Notice Delivered To: Patient Relationship to Patient: Self Clinical Lab Scientist Name: Delivery Method: HAND - Hand Delivered Sirena Days: Prior Verbal Notification: Recipient Understood Notice: Yes Recipient Signature: Yes Med Rec Note Co-signed by Attending: Coverage Notice Comment: DC IMM delivered, explained, signed by the patient, and placed in chart. Reviewer: [id number] Stephanie Stock Notice Issued Date-Time: 07/05/2020 15:25 Notice Type: Patient Choice Letter Notice Delivered To: Patient Relationship to Patient: Self Clinical Lab Scientist Name: Delivery Method: HAND - Hand Delivered Sirena Days: Prior Verbal Notification: Recipient Understood Notice: Yes Recipient Signature: Yes Med Rec Note Co-signed by Attending: Coverage Notice Comment: [facility] Last DP export: 08/02/20 1:58 p Patient Name: ADELFO DIALLO Page [phone] at 1156 All edits/amendments must be made on the electronic document DICTATION DATE: 08/15/20 1156 ASSISTANT COOK: COOPER 08/15/20 1156 RPT#: [id number] DC DATE: STATUS: ADM IN [facility] [address] [place] [address] END OF REPORT
--- NOTE | 2020-08-15 12:54 | NUR ---
Nutrition follow-up: Discussed during IDT team rounds Intubated, sedated with propofol @ 13.2 ml/hr Suplena infusing @ goal rate of 50 ml/hr labs reviewed WT: 257# Pt tolerating TF at goal rate RDN follow-up: 08/17/20
[2020-08-16] VITALS (23 sets, daily range): BP systolic 91–128; BP diastolic 51–76
[2020-08-16 04:11] LABS: BASOPHILS 0.1 % (0-2); EOSINOPHILS 0.9 % (0-7); HEMATOCRIT 30.2 % (36.0-48.0); HEMOGLOBIN 8.7 g/dL (12-16); LYMPHOCYTE ABS# 1.02 10x3/uL (1.18-3.74); LYMPHOCYTES 13.7 % (15-50); MCHC 28.8 g/dL (31.0-37.0); MCV 93.8 fL (80.0-100.0); NEUTROPHILS 79.3 % (40-80); PLATELET COUNT 69 10x3/uL (130-400); RBC 3.22 10x6/uL (4.00-5.40); RDW 16.3 % (11.5-14.5); WBC 7.5 10x3/uL (4.8-10.8)
[2020-08-16 04:22] LABS: CALC OSMOLALITY 300 mosm/kg (275-300); CALCIUM 7.8 mg/dL (8.5-10.1); CHLORIDE - SERUM 104 mmol/L (98-107); CREATININE - SERUM 0.8 mg/dL (0.6-1.3); GLUCOSE 233 mg/dL (74-106); POTASSIUM - SERUM 4.6 mmol/L (3.5-5.1); SODIUM 143 mmol/L (136-145); UREA NITROGEN 37 mg/dL (7-18); eGFR NON AFRICAN AMERICAN 77 mL/min (90-120)
[2020-08-17] VITALS (22 sets, daily range): BP systolic 89–130; BP diastolic 48–75
[2020-08-17 05:55] LABS: ANION GAP 5.8 mmol/L (8-16); CALCIUM 7.8 mg/dL (8.5-10.1); CARBON DIOXIDE 34.8 mmol/L (21.0-32.0); POTASSIUM - SERUM 4.6 mmol/L (3.5-5.1)
[2020-08-17 06:10] LABS: BASOPHILS 0.1 % (0-2); EOSINOPHILS 0.5 % (0-7); HEMOGLOBIN 7.9 g/dL (12-16); IMMATURE GRANULOCYTES 2.3 % (0-5); LYMPHOCYTE ABS# 1.35 10x3/uL (1.18-3.74); MCH 27.5 pg (26.0-34.0); MCHC 29.3 g/dL (31.0-37.0); MCV 94.1 fL (80.0-100.0); MONOCYTES 4.8 % (2-11); NEUTROPHIL ABS# 6.43 10x3/uL (1.56-6.13); NEUTROPHILS 76.3 % (40-80); RBC 2.87 10x6/uL (4.00-5.40); RDW 16.3 % (11.5-14.5); WBC 8.4 10x3/uL (4.8-10.8)
[2020-08-17 06:15] LABS: PLATELET COUNT 86 10x3/uL (130-400)
[2020-08-17 10:04] LABS: PLATELET ESTIMATE DECREASED; ROULEAUX OCC
--- NOTE | 2020-08-17 12:49 | NUR ---
STARTED PS TRIAL 03/21 30% PER DR. PERAZA. PT RSBI 35 AT THIS TIME. DOING WELL WITH MINIMAL COACHING. WILL RUN TRIAL FOR 1-2 HRS TODAY.
--- NOTE | 2020-08-17 13:16 | NUR ---
Nutrition follow-up: Pt with PS trials today Suplena @ 50 ml/hr via OGT labs reviewed WT: 257# Pt tolerating TF at goal rate Follow-up: 08/19/20
--- NOTE | 2020-08-17 14:33 | MORECARE ---
CASE MANAGEMENT DISCHARGE SUMMARY PATIENT: ADELFO DIALLO UNIT: [id number] ADM DATE: 07/03/20 AGE: 64 : 57 SEX: F ROOM/BED: D.2314 AUTHOR: ELIZABETH TORRES PHYSICIAN: REFERRING PHYSICIAN: BRIGIDA PATTERSON DO DATE OF SERVICE: 08/17/20 Discharge Plan Patient Name: ADELFO DIALLO Facility: [facility]:[place] : 1955 Planned Disposition: Home with Home Health Anticipated Discharge Date: Discharge Date: Expected LOS: Initial Reviewer: [email or web address] Initial Review Date: 07/03/2020 Generated: 08/17/20 3:32 pm Comments DCP- Discharge Planning Updated by [email or web address]: Avril Sin on 08/17/20 1:[address] CM spoke with Dax at [facility] about status of referral. Dax states she just obtained auth from [employer]. States she does not have a bed available today. But anticipates possible bed availability tomorrow. Dax will call CM back tomorrow morning with bed status. CM faxed updated records as requested. CM called and spoke with patient's daughter about status of discharge planning. Daughter verbalized understanding and satisfaction with discharge plans. CM will call daughter back tomorrow with bed status update. DC IMM explained and served via telephone. Sent copy to daughter via certified mail, return receipt requested. DCP- Discharge Planning Updated by [email or web address]: Kathie Plascencia on 08/02/20 1:[address] Patient Name: ADELFO DIALLO Admission Status: ER Accout number: [id number] Admission Date: 07-03-2020 : 1955 Admission Diagnosis:INFCT FOL A PROCEDURE, DEEP INCISIONAL SURGICAL SITE, I Attending: BRIGIDA PATTERSON Current LOS: 30 Anticipated DC Date: Planned Disposition: Home with Home Health Primary Insurance: [facility] [employer] Discharge Planning Comments: CM SPOKE WITH PATIENT'S DAUGHTER CECILY AND THEY PLAN FOR HER TO GO HOME WITH HOME HEALTH AND MEDICAL EQUIPMENT WHEN STABLE FOR DC. SHE IS SET UP WITH [facility] AND HAS EQUIPMENT WITH [employer]. HER OXYGEN DEMAND HAS INCREASED TO 15 LITERS TODAY FROM 5LITERS YESTERDAY. [facility] WILL CONTINUE TO FOLLOW AND ASSIST NEEDED. Firearms Specialist: Kathie Thais DCP- Discharge Planning Updated by [id number]: Roz Lopez on 07/29/20 11:[address] CM spoke with patient's daughter again regarding LTACH. She said the one in [place] may be ok and she will check on the 2 LTACH's in [place]. She refuses the LTACH's any where else on the list. She states she may consider patient to come home with [facility] if she can get a hospital bed and a emily lift. I explained the high oxygen demands she is requiring now and why LTACH would be a better/safer DC plan. She states she will call me back with her decision. DCP- Discharge Planning Updated by [email or web address]: Amanda Harris on 07/28/20 6:[address] CM attempted to call daughter but didn't get an answer. DCP- Discharge Planning Updated by [email or web address]: Roz Lopez on 07/27/20 11:[address] CM attempted to call daughter and the mailbox was full and could not leave a message. I will attempt again later in the day. CM will continue to follow and assist with discharge planning/needs. DCP- Discharge Planning Updated by [id number]: Amanda Harris on 07/25/20 1:[address] CM notified by physical therapy that patient is max assist x2 men. He is recommending placement v/s LTACH. CM will continue to follow and assist as needed with discharge planning / needs. DCP- Discharge Planning Updated by [email or web address]: Kathie Plascencia on 07/15/20 3:[address] Patient Name: ADELFO DIALLO Admission Status: ER Accout number: [id number] Admission Date: 07-03-2020 : 1955 Admission Diagnosis:INFCT FOL A PROCEDURE, DEEP INCISIONAL SURGICAL SITE, I Attending: BRIGIDA PATTERSON Current LOS: 12 Anticipated DC Date: Planned Disposition: Home with Home Health Primary Insurance: [facility] [employer] Discharge Planning Comments: SPOKE WITH NIDA BOWSER AND PATIENT IS NOT MEDICALLY READY TO DC. WHITE COUNT IS STILL ELEVATED AND CXR PENDING. [facility] WILL DELIVER HER OXYGEN TO HER ROOM TODAY AND [employer] [facility] WILL SEE HER WHEN SHE IS DISCHARGED. CM TO FOLLOW AND ASSIST NEEDED. Firearms Specialist: Kathie Plascencia DCP- Discharge Planning Updated by [id number]: Domingo Stock on 07/05/20 3:[address] CM met with patient to complete DC plan and to evaluate needs. Patient lives at home with her daughter, Cecily Mcintyre ([phone]). CM discussed availability of home health, rehab services, and medical equipment. Patient Declined Inpatient Rehab but would like to resume [facility]. Spoke with Thais at [facility], patient is current and on hold for hospitalization. Clinicals faxed to [facility]. GWENDOLYN refusal for inpatient rehab and acceptance of Resuming [facility] signed and placed on chart. Patient voiced no other needs at this time and is satisfied with DC plan. DC IMM delivered, explained, signed by the patient, and placed in chart. Signed form also left with the patient. CM will continue to follow and will assist as needed with dc plans/needs. DCPIA - Discharge Planning Initial Assessment Updated by PATTI: Domingo Stock on 07/05/20 3:39 pm * Is the patient Alert and Oriented? Yes * How many steps to enter\exit or inside your home? RAMP * PCP FARO * Pharmacy [facility] * Preadmission Environment Home with Family * ADLs Partial Dependent * Partial ADLs (Assistance needed) Ambulation Bathing Dressing Eating Medication Management Toileting Transfers * Equipment Walker * Other Equipment n/a * List name and contact numbers for known caregivers / representatives who currently or will assist patient after discharge: CECILY MCINTYRE (dtr) [phone] * Verbal permission to speak to the caregivers and representatives has been obtained from the patient. Yes * Community resources currently utilized Home Health * Please name any agencies selected above. [facility] * Additional services required to return to the preadmission environment? Yes * Can the patient safely return to the preadmission environment? Yes * Has this patient been hospitalized within the prior 30 days at any hospital? No Coverage Notice Reviewer: [id number] Stephanie Stock Notice Issued Date-Time: 07/05/2020 15:25 Notice Type: IM Discharge Notice Notice Delivered To: Patient Relationship to Patient: Self Glove Cuffer Name: Delivery Method: HAND - Hand Delivered Sirena Days: Prior Verbal Notification: Recipient Understood Notice: Yes Recipient Signature: Yes Med Rec Note Co-signed by Attending: Coverage Notice Comment: DC IMM delivered, explained, signed by the patient, and placed in chart. Reviewer: [email or web address] Stephanie Stock Notice Issued Date-Time: 07/05/2020 15:25 Notice Type: Patient Choice Letter Notice Delivered To: Patient Relationship to Patient: Self Glove Cuffer Name: Delivery Method: HAND - Hand Delivered Sirena Days: Prior Verbal Notification: Recipient Understood Notice: Yes Recipient Signature: Yes Med Rec Note Co-signed by Attending: Coverage Notice Comment: Margaret Valdovinos [facility] Last DP export: 08/15/20 10:57 am Patient Name: ADELFO DIALLO Page [id number] at 1433 All edits/amendments must be made on the electronic document DICTATION DATE: 08/17/20 143 GENERAL WAREHOUSE WORKER: COOPER 08/17/20 143 RPT#: [id number] DC DATE: STATUS: ADM IN [facility] [address] [place] [address] END OF REPORT
--- NOTE | 2020-08-17 14:37 | NUR ---
PS TRIAL ENED AT THIS TIME. PT BACK ON RATE AC/VC. PT RR INCREASED IN HIGH 30'S. TRIAL WENT WELL LASTED ALMOST 2 HRS. WILL TRY AGAIN TONIGHT.
[2020-08-18] VITALS (24 sets, daily range): BP systolic 102–124; BP diastolic 51–83
[2020-08-18 06:40] LABS: BASOPHILS 0.1 % (0-2); EOSINOPHILS 0.5 % (0-7); HEMATOCRIT 25.4 % (36.0-48.0); IMMATURE GRANULOCYTES 2.2 % (0-5); LYMPHOCYTE ABS# 1.57 10x3/uL (1.18-3.74); LYMPHOCYTES 15.6 % (15-50); MCH 27.6 pg (26.0-34.0); MCHC 29.5 g/dL (31.0-37.0); MCV 93.4 fL (80.0-100.0); MEAN PLATELET VOLUME 13.3 fL (7.4-10.4); NEUTROPHIL ABS# 7.83 10x3/uL (1.56-6.13); NEUTROPHILS 77.6 % (40-80); RBC 2.72 10x6/uL (4.00-5.40); RDW 16.7 % (11.5-14.5); WBC 10.1 10x3/uL (4.8-10.8)
[2020-08-18 07:06] LABS: HEMOGLOBIN 7.5 g/dL (12-16); PLATELET COUNT 117 10x3/uL (130-400)
[2020-08-18 07:41] LABS: ALBUMIN 1.6 g/dL (3.4-5.0); ANION GAP 7.9 mmol/L (8-16); BILIRUBIN - TOTAL 0.19 mg/dL (0.2-1.3); CALCIUM 7.8 mg/dL (8.5-10.1); CARBON DIOXIDE 32.3 mmol/L (21.0-32.0); POTASSIUM - SERUM 4.2 mmol/L (3.5-5.1); PROTEIN - SERUM 4.3 g/dL (6.4-8.2)
[2020-08-18 19:26] LABS: BASOPHILS 0.1 % (0-2); EOSINOPHILS 0.3 % (0-7); HEMATOCRIT 28.2 % (36.0-48.0); HEMOGLOBIN 8.6 g/dL (12-16); IMMATURE GRANULOCYTES 1.7 % (0-5); LYMPHOCYTE ABS# 2.11 10x3/uL (1.18-3.74); MCH 28.4 pg (26.0-34.0); MCHC 30.5 g/dL (31.0-37.0); MCV 93.1 fL (80.0-100.0); MEAN PLATELET VOLUME 12.6 fL (7.4-10.4); MONOCYTES 2.5 % (2-11); NEUTROPHIL ABS# 14.74 10x3/uL (1.56-6.13); NEUTROPHILS 83.4 % (40-80); PLATELET COUNT 137 10x3/uL (130-400); RBC 3.03 10x6/uL (4.00-5.40); RDW 16.4 % (11.5-14.5); WBC 17.7 10x3/uL (4.8-10.8)
[2020-08-19] VITALS (24 sets, daily range): BP systolic 91–133; BP diastolic 48–78
--- NOTE | 2020-08-19 00:46 | NUR ---
Dr. Resendiz came in to assess patient's foot and observe drainage. Initially planned to place wound vac, but decided to hold off due to plans for patient to be moved to LTAC today, therefore it wouldn't be as beneficial. Dr. Resendiz placed 2 sutures to control the bleeding. Will round tomorrow to check if placement is still in the plan and to make a decision on the wound-vac.
--- NOTE | 2020-08-19 03:36 | NUR ---
Patient is resting well. Diprivan has slightly been titrated down. Will continue to monitor patient.
[2020-08-19 05:39] LABS: BASOPHILS 0.1 % (0-2); EOSINOPHILS 0.3 % (0-7); HEMATOCRIT 26.6 % (36.0-48.0); IMMATURE GRANULOCYTES 2.4 % (0-5); LYMPHOCYTE ABS# 2.33 10x3/uL (1.18-3.74); LYMPHOCYTES 20.7 % (15-50); MCHC 30.1 g/dL (31.0-37.0); MEAN PLATELET VOLUME 12.5 fL (7.4-10.4); MONOCYTES 2.5 % (2-11); NEUTROPHIL ABS# 8.33 10x3/uL (1.56-6.13); PLATELET COUNT 137 10x3/uL (130-400); RBC 2.86 10x6/uL (4.00-5.40); RDW 16.7 % (11.5-14.5)
[2020-08-19 05:59] LABS: WBC 11.3 10x3/uL (4.8-10.8)
[2020-08-19 06:15] LABS: ALBUMIN 1.6 g/dL (3.4-5.0); ALKALINE PHOSPHATASE 82 U/L (30-120); ALT (SGPT) 48 U/L (10-68); BILIRUBIN - TOTAL 0.29 mg/dL (0.2-1.3); CALC OSMOLALITY 290 mosm/kg (275-300); CALCIUM 7.8 mg/dL (8.5-10.1); CARBON DIOXIDE 33.9 mmol/L (21.0-32.0); CHLORIDE - SERUM 102 mmol/L (98-107); CREATININE - SERUM 0.8 mg/dL (0.6-1.3); GLUCOSE 171 mg/dL (74-106); POTASSIUM - SERUM 4.1 mmol/L (3.5-5.1); PROTEIN - SERUM 4.3 g/dL (6.4-8.2); SODIUM 138 mmol/L (136-145); UREA NITROGEN 42 mg/dL (7-18); eGFR NON AFRICAN AMERICAN 77 mL/min (90-120)
--- NOTE | 2020-08-19 06:30 | NUR ---
Patient turned Q2hrs. Patient given a full bath with hair washed as well. Linen changed, Diprivan tubing changed, as well as feeding tubing changed.
--- NOTE | 2020-08-19 09:00 | NUR ---
P/S TRIAL STARTED 03/21/30%. TOLERATING WELL UPON LEAVING ROOM SPO2 97% HR 76 RR 20. RSBI 45
--- NOTE | 2020-08-19 10:16 | MORECARE ---
CASE MANAGEMENT DISCHARGE SUMMARY PATIENT: ADELFO DIALLO UNIT: [id number] ADM DATE: 07/03/20 AGE: 64 : 57 SEX: F ROOM/BED: D.2314 AUTHOR: ELIZABETH TORRES PHYSICIAN: REFERRING PHYSICIAN: BRIGIDA PATTERSON DO DATE OF SERVICE: 08/19/20 Discharge Plan Patient Name: ADELFO DIALLO Facility: [facility]:[place] : 1955 Planned Disposition: Home with Home Health Anticipated Discharge Date: Discharge Date: Expected LOS: Initial Reviewer: [email or web address] Initial Review Date: 07/03/2020 Generated: 08/19/20 11:15 am Comments DCP- Discharge Planning Updated by [id number]: Avril Sin on 08/17/20 1:[address] CM spoke with Dax at [facility] about status of referral. Dax states she just obtained auth from [employer]. States she does not have a bed available today. But anticipates possible bed availability tomorrow. Dax will call CM back tomorrow morning with bed status. CM faxed updated records as requested. CM called and spoke with patient's daughter about status of discharge planning. Daughter verbalized understanding and satisfaction with discharge plans. CM will call daughter back tomorrow with bed status update. DC IMM explained and served via telephone. Sent copy to daughter via certified mail, return receipt requested. DCP- Discharge Planning Updated by [email or web address]: Kathie Plascencia on 08/02/20 1:[address] Patient Name: ADELFO DIALLO Admission Status: ER Accout number: [id number] Admission Date: 07-03-2020 : 1955 Admission Diagnosis:INFCT FOL A PROCEDURE, DEEP INCISIONAL SURGICAL SITE, I Attending: BRIGIDA PATTERSON Current LOS: 30 Anticipated DC Date: Planned Disposition: Home with Home Health Primary Insurance: [facility] [employer] SOLUTIONS Discharge Planning Comments: CM SPOKE WITH PATIENT'S DAUGHTER CECILY AND THEY PLAN FOR HER TO GO HOME WITH HOME HEALTH AND MEDICAL EQUIPMENT WHEN STABLE FOR DC. SHE IS SET UP WITH [email or web address] AND HAS EQUIPMENT WITH [employer]. HER OXYGEN DEMAND HAS INCREASED TO 15 LITERS TODAY FROM 5LITERS YESTERDAY. [facility] WILL CONTINUE TO FOLLOW AND ASSIST NEEDED. Senior Military Analyst: Kathie Thais DCP- Discharge Planning Updated by [id number]: Roz Lopez on 07/29/20 11:[address] CM spoke with patient's daughter again regarding LTACH. She said the one in [place] may be ok and she will check on the 2 LTACH's in [place]. She refuses the LTACH's any where else on the list. She states she may consider patient to come home with [facility] if she can get a hospital bed and a emily lift. I explained the high oxygen demands she is requiring now and why LTACH would be a better/safer DC plan. She states she will call me back with her decision. DCP- Discharge Planning Updated by [email or web address]: Amanda Harris on 07/28/20 6:[address] CM attempted to call daughter but didn't get an answer. DCP- Discharge Planning Updated by [email or web address]: Roz Lopez on 07/27/20 11:[address] CM attempted to call daughter and the mailbox was full and could not leave a message. I will attempt again later in the day. CM will continue to follow and assist with discharge planning/needs. DCP- Discharge Planning Updated by [id number]: Amanda Harris on 07/25/20 1:[address] CM notified by physical therapy that patient is max assist x2 men. He is recommending placement v/s LTACH. CM will continue to follow and assist as needed with discharge planning / needs. DCP- Discharge Planning Updated by [id number]: Kathie Plascencia on 07/15/20 3:[address] Patient Name: ADELFO DIALLO Admission Status: ER Accout number: [id number] Admission Date: 07-03-2020 : 1955 Admission Diagnosis:INFCT FOL A PROCEDURE, DEEP INCISIONAL SURGICAL SITE, I Attending: BRIGIDA PATTERSON Current LOS: 12 Anticipated DC Date: Planned Disposition: Home with Home Health Primary Insurance: [facility] [employer] SOLUTIONS Discharge Planning Comments: SPOKE WITH NIDA BOWSER AND PATIENT IS NOT MEDICALLY READY TO DC. WHITE COUNT IS STILL ELEVATED AND CXR PENDING. [facility] WILL DELIVER HER OXYGEN TO HER ROOM TODAY AND [employer] [facility] WILL SEE HER WHEN SHE IS DISCHARGED. CM TO FOLLOW AND ASSIST NEEDED. Senior Military Analyst: Kathie Plascencia DCP- Discharge Planning Updated by [id number]: Domingo Stock on 07/05/20 3:[address] CM met with patient to complete DC plan and to evaluate needs. Patient lives at home with her daughter, Cecily Mcintyre ([phone]). CM discussed availability of home health, rehab services, and medical equipment. Patient Declined Inpatient Rehab but would like to resume [facility]. Spoke with Thais at [facility], patient is current and on hold for hospitalization. Clinicals faxed to [facility]. GWENDOLYN refusal for inpatient rehab and acceptance of Resuming [facility] signed and placed on chart. Patient voiced no other needs at this time and is satisfied with DC plan. DC IMM delivered, explained, signed by the patient, and placed in chart. Signed form also left with the patient. CM will continue to follow and will assist as needed with dc plans/needs. DCPIA - Discharge Planning Initial Assessment Updated by PATTI: Domingo Stock on 07/05/20 3:39 pm * Is the patient Alert and Oriented? Yes * How many steps to enter\exit or inside your home? RAMP * PCP FARO * Pharmacy [facility] * Preadmission Environment Home with Family * ADLs Partial Dependent * Partial ADLs (Assistance needed) Ambulation Bathing Dressing Eating Medication Management Toileting Transfers * Equipment Walker * Other Equipment n/a * List name and contact numbers for known caregivers / representatives who currently or will assist patient after discharge: CECILY MCINTYRE (dtr) [phone] * Verbal permission to speak to the caregivers and representatives has been obtained from the patient. Yes * Community resources currently utilized Home Health * Please name any agencies selected above. [facility] * Additional services required to return to the preadmission environment? Yes * Can the patient safely return to the preadmission environment? Yes * Has this patient been hospitalized within the prior 30 days at any hospital? No Coverage Notice Reviewer: [id number] Stephanie Stock Notice Issued Date-Time: 07/05/2020 15:25 Notice Type: IM Discharge Notice Notice Delivered To: Patient Relationship to Patient: Self Crystal Grower Name: Delivery Method: HAND - Hand Delivered Sirena Days: Prior Verbal Notification: Recipient Understood Notice: Yes Recipient Signature: Yes Med Rec Note Co-signed by Attending: Coverage Notice Comment: DC IMM delivered, explained, signed by the patient, and placed in chart. Reviewer: [id number] Stephanie Stock Notice Issued Date-Time: 07/05/2020 15:25 Notice Type: Patient Choice Letter Notice Delivered To: Patient Relationship to Patient: Self Crystal Grower Name: Delivery Method: HAND - Hand Delivered Sirena Days: Prior Verbal Notification: Recipient Understood Notice: Yes Recipient Signature: Yes Med Rec Note Co-signed by Attending: Coverage Notice Comment: Margaret Valdovinos HHS Last DP export: 08/17/20 1:32 pm Patient Name: ADELFO DIALLO Page 14028 at 1016 All edits/amendments must be made on the electronic document DICTATION DATE: 08/19/20 1015 ANODE MACHINE OPERATOR: COOPER 08/19/20 1015 RPT#: [id number] DC DATE: STATUS: ADM IN [facility] [address] [place] [address] END OF REPORT
--- NOTE | 2020-08-19 11:10 | NUR ---
P/S TRIAL ENDED AT 1105. PUT BACK ON AC/VC 20/450/5/30%. TOLERATED TRIAL WELL. SPO2 92% RR 24 UPON LEAVING ROOM
--- NOTE | 2020-08-19 11:34 | NUR ---
CPAP TRIALS STOPPED AFTER RESP RATE DECREASED TO 8BPM. A/C BACK ON PER RT. SPO2 REMAINS BELOW 90%. FI02 INCREASED TO 50%. REPORTED TO DR PERAZA.
--- NOTE | 2020-08-19 11:40 | NUR ---
1100-RETURNED TO AC FOR VENT BY RT-SAT 77%-30% ON VENTILATOR-100%FIO2 PLACED-DOMONIQUE RETURNED TO 15MCG- 1130-RT ADJUST TO 50%FIO2 WITH SAT RETURN TO 97%
--- NOTE | 2020-08-19 12:10 | NUR ---
Nutrition Reassessment/Follow-up: Intubated/sedated. TF was changed from Suplena to Nepro (running @ 50 mL/hr); provides 2160 kcal & 97 g protein/day. Receiving Diprivan @ 9.9 mL/hr; provides 261 kcal/day. Noted plans to d/c to LTAC. Diet: Nepro - goal rate @ 50 mL/hr Wt: 256# (08/19); 256.8# (08/15); 263.4# (08/08); 250.2# (08/03) Labs noted: Na 138, K+ 4.1, Glu 171, Ca 7.8, Alb 1.6 Meds noted: Glucophage, Humalog, Diprivan, Pepcid, Florajen, Lasix, Decadron, Senokot, Colace, vit B1, vit C, vit D, zinc sulfate, NS @ 40 -Nutrition needs unchanged. -TF as tolerated. -RD follow-up: 08/22
--- NOTE | 2020-08-19 12:23 | NUR ---
Nutrition Reassessment/Follow-up: Intubated/sedated. TF was changed from Suplena to Nepro (running @ 50 mL/hr); provides 2160 kcal & 97 g protein daily. Receiving Diprivan @ 9.9 mL/hr; provides 261 kcal/day. Noted plans to d/c to LTAC. Diet: Nepro - goal rate @ 50 mL/hr Wt: 256# (08/19), 256.8# (08/15); 263.4# (08/08); 250.2# (08/03) Labs noted: Na 138, K+ 4.1, Glu 171, Ca 7.8, Alb 1.6 Meds noted: Decadron, Lantus, Diprivan, Veltassa, Florajen, Colace, Protonix, electrolyte protocol -Nutrition needs unchanged. -TF as tolerated. - follow-up: 08/22
[2020-08-20] VITALS (24 sets, daily range): BP systolic 91–125; BP diastolic 51–71
[2020-08-20 03:51] LABS: BASOPHILS 0.1 % (0-2); HEMATOCRIT 25.2 % (36.0-48.0); HEMOGLOBIN 7.6 g/dL (12-16); IMMATURE GRANULOCYTES 1.7 % (0-5); LYMPHOCYTE ABS# 1.86 10x3/uL (1.18-3.74); LYMPHOCYTES 21.6 % (15-50); MCH 28.3 pg (26.0-34.0); MCHC 30.2 g/dL (31.0-37.0); MCV 93.7 fL (80.0-100.0); MEAN PLATELET VOLUME 11.9 fL (7.4-10.4); MONOCYTES 2.2 % (2-11); NEUTROPHIL ABS# 6.31 10x3/uL (1.56-6.13); NEUTROPHILS 73.4 % (40-80); PLATELET COUNT 155 10x3/uL (130-400); RBC 2.69 10x6/uL (4.00-5.40); RDW 17.3 % (11.5-14.5); WBC 8.6 10x3/uL (4.8-10.8)
[2020-08-20 04:13] LABS: ALBUMIN 1.5 g/dL (3.4-5.0); ALKALINE PHOSPHATASE 76 U/L (30-120); ALT (SGPT) 43 U/L (10-68); BILIRUBIN - TOTAL 0.35 mg/dL (0.2-1.3); CALC OSMOLALITY 285 mosm/kg (275-300); CALCIUM 7.5 mg/dL (8.5-10.1); CARBON DIOXIDE 33.2 mmol/L (21.0-32.0); CHLORIDE - SERUM 103 mmol/L (98-107); CREATININE - SERUM 0.8 mg/dL (0.6-1.3); GLUCOSE 124 mg/dL (74-106); POTASSIUM - SERUM 4.2 mmol/L (3.5-5.1); PROTEIN - SERUM 4.2 g/dL (6.4-8.2); SODIUM 138 mmol/L (136-145); UREA NITROGEN 39 mg/dL (7-18); eGFR NON AFRICAN AMERICAN 77 mL/min (90-120)
--- NOTE | 2020-08-20 06:39 | NUR ---
Paged Dr. Carrillo to give update on abnormal RBCs, HCT, and HGB. No orders diven at this time.
--- NOTE | 2020-08-20 07:40 | NUR ---
P/S TRIAL 03/21/50% STARTED SPO2 99% HR 79 RR 23
--- NOTE | 2020-08-20 09:59 | NUR ---
P/S TRIAL ENDED PER DR PERAZA. PUT BACK ON AC/VC 20/450/5/50%
--- NOTE | 2020-08-20 10:35 | NUR ---
BRONCHOSCOPY DONE BY DR PERAZA. DR PERAZA SPOKE TO PTS DAUGHTER BY PHONE. CONCENT ON CHART.
--- NOTE | 2020-08-20 12:33 | NUR ---
PT DIAPHORETIC. BS CHECKED EARLY. BS70. D50 GIVEN ORDERED. RECHECK BS IS 108. REPORTED TO DR PERAZA. [place] STARTED.
[2020-08-20 15:39] LABS: MACROPHAGES BF 15 %; NEUT - BF 69 %
[2020-08-21] VITALS (13 sets, daily range): BP systolic 93–166; BP diastolic 57–88
[2020-08-21 04:42] LABS: BASOPHILS 0.1 % (0-2); EOSINOPHILS 1.2 % (0-7); HEMATOCRIT 24.2 % (36.0-48.0); IMMATURE GRANULOCYTES 0.9 % (0-5); LYMPHOCYTE ABS# 1.51 10x3/uL (1.18-3.74); LYMPHOCYTES 21.8 % (15-50); MCH 28.2 pg (26.0-34.0); MCHC 29.3 g/dL (31.0-37.0); MEAN PLATELET VOLUME 11.3 fL (7.4-10.4); MONOCYTES 1.9 % (2-11); NEUTROPHIL ABS# 5.15 10x3/uL (1.56-6.13); NEUTROPHILS 74.1 % (40-80); PLATELET COUNT 160 10x3/uL (130-400); RBC 2.52 10x6/uL (4.00-5.40); WBC 6.9 10x3/uL (4.8-10.8)
[2020-08-21 04:57] LABS: HEMOGLOBIN 7.1 g/dL (12-16)
[2020-08-21 05:07] LABS: ALBUMIN 1.4 g/dL (3.4-5.0); ALKALINE PHOSPHATASE 68 U/L (30-120); ALT (SGPT) 35 U/L (10-68); BILIRUBIN - TOTAL 0.24 mg/dL (0.2-1.3); CALCIUM 7.2 mg/dL (8.5-10.1); CARBON DIOXIDE 32.6 mmol/L (21.0-32.0); CHLORIDE - SERUM 105 mmol/L (98-107); CREATININE - SERUM 0.8 mg/dL (0.6-1.3); PROTEIN - SERUM 3.9 g/dL (6.4-8.2); SODIUM 138 mmol/L (136-145); UREA NITROGEN 34 mg/dL (7-18); eGFR NON AFRICAN AMERICAN 76 mL/min (90-120)
[2020-08-21 05:12] LABS: CALC OSMOLALITY 289 mosm/kg (275-300); GLUCOSE 200 mg/dL (74-106); POTASSIUM - SERUM 3.4 mmol/L (3.5-5.1)
--- NOTE | 2020-08-21 06:58 | NUR ---
Paged Dr. Carrillo to notify her of HGB of 7.1. She ordered a type and cross and 2U of PRBC.
--- NOTE | 2020-08-21 08:48 | MORECARE ---
CASE MANAGEMENT DISCHARGE SUMMARY PATIENT: ADELFO DIALLO UNIT: [id number] ADM DATE: 07/03/20 AGE: 65 : 57 SEX: F ROOM/BED: D.2314 AUTHOR: ELIZABETH TORRES PHYSICIAN: REFERRING PHYSICIAN: BRIGIDA PATTERSON DO DATE OF SERVICE: 08/21/20 Discharge Plan Patient Name: ADELFO DIALLO Facility: [facility]:[place] : 1955 Planned Disposition: Home with Home Health Anticipated Discharge Date: Discharge Date: Expected LOS: Initial Reviewer: [email or web address] Initial Review Date: 07/03/2020 Generated: 08/21/20 9:47 am Comments DCP- Discharge Planning Updated by [email or web address]: Avril Sin on 08/17/20 1:[address] CM spoke with Dax at [facility] about status of referral. Dax states she just obtained auth from [employer]. States she does not have a bed available today. But anticipates possible bed availability tomorrow. Dax will call CM back tomorrow morning with bed status. CM faxed updated records as requested. CM called and spoke with patient's daughter about status of discharge planning. Daughter verbalized understanding and satisfaction with discharge plans. CM will call daughter back tomorrow with bed status update. DC IMM explained and served via telephone. Sent copy to daughter via certified mail, return receipt requested. DCP- Discharge Planning Updated by [email or web address]: Kathie Plascencia on 08/02/20 1:[address] Patient Name: ADELFO DIALLO Admission Status: ER Accout number: [id number] Admission Date: 07-03-2020 : 1955 Admission Diagnosis:INFCT FOL A PROCEDURE, DEEP INCISIONAL SURGICAL SITE, I Attending: BRIGIDA PATTERSON Current LOS: 30 Anticipated DC Date: Planned Disposition: Home with Home Health Primary Insurance: [employer] Discharge Planning Comments: CM SPOKE WITH PATIENT'S DAUGHTER CECILY AND THEY PLAN FOR HER TO GO HOME WITH HOME HEALTH AND MEDICAL EQUIPMENT WHEN STABLE FOR DC. SHE IS SET UP WITH [facility] AND HAS EQUIPMENT WITH [employer]. HER OXYGEN DEMAND HAS INCREASED TO 15 LITERS TODAY FROM 5LITERS YESTERDAY. [facility] WILL CONTINUE TO FOLLOW AND ASSIST NEEDED. Research And Development Scientist: Kathie Thais DCP- Discharge Planning Updated by [id number]: Roz Lopez on 07/29/20 11:[address] CM spoke with patient's daughter again regarding LTACH. She said the one in [place] may be ok and she will check on the 2 LTACH's in [place]. She refuses the LTACH's any where else on the list. She states she may consider patient to come home with [facility] if she can get a hospital bed and a emily lift. I explained the high oxygen demands she is requiring now and why LTACH would be a better/safer DC plan. She states she will call me back with her decision. DCP- Discharge Planning Updated by [id number]: Amanda Harris on 07/28/20 6:[address] CM attempted to call daughter but didn't get an answer. DCP- Discharge Planning Updated by [email or web address]: Roz Lopez on 07/27/20 11:[address] CM attempted to call daughter and the mailbox was full and could not leave a message. I will attempt again later in the day. CM will continue to follow and assist with discharge planning/needs. DCP- Discharge Planning Updated by [email or web address]: Amanda Harris on 07/25/20 1:[address] CM notified by physical therapy that patient is max assist x2 men. He is recommending placement v/s LTACH. CM will continue to follow and assist as needed with discharge planning / needs. DCP- Discharge Planning Updated by [id number]: Kathie Plascencia on 07/15/20 3:[address] Patient Name: ADELFO DIALLO Admission Status: ER Accout number: [id number] Admission Date: 07-03-2020 : 1955 Admission Diagnosis:INFCT FOL A PROCEDURE, DEEP INCISIONAL SURGICAL SITE, I Attending: BRIGIDA PATTERSON Current LOS: 12 Anticipated DC Date: Planned Disposition: Home with Home Health Primary Insurance: [employer] Discharge Planning Comments: SPOKE WITH NIDA BOWSER AND PATIENT IS NOT MEDICALLY READY TO DC. WHITE COUNT IS STILL ELEVATED AND CXR PENDING. [facility] WILL DELIVER HER OXYGEN TO HER ROOM TODAY AND [facility] WILL SEE HER WHEN SHE IS DISCHARGED. CM TO FOLLOW AND ASSIST NEEDED. Research And Development Scientist: Kathie Plascencia DCP- Discharge Planning Updated by [email or web address]: Domingo Stock on 07/05/20 3:[address] CM met with patient to complete DC plan and to evaluate needs. Patient lives at home with her daughter, Cecily Mcintyre ([phone]). CM discussed availability of home health, rehab services, and medical equipment. Patient Declined Inpatient Rehab but would like to resume [facility]. Spoke with Thais at [facility], patient is current and on hold for hospitalization. Clinicals faxed to [facility]. GWENDOLYN refusal for inpatient rehab and acceptance of [facility] signed and placed on chart. Patient voiced no other needs at this time and is satisfied with DC plan. DC IMM delivered, explained, signed by the patient, and placed in chart. Signed form also left with the patient. CM will continue to follow and will assist as needed with dc plans/needs. DCPIA - Discharge Planning Initial Assessment Updated by PATTI: Domingo Stock on 07/05/20 3:39 pm * Is the patient Alert and Oriented? Yes * How many steps to enter\exit or inside your home? RAMP * PCP [facility]O * Pharmacy [facility] * Preadmission Environment Home with Family * ADLs Partial Dependent * Partial ADLs (Assistance needed) Ambulation Bathing Dressing Eating Medication Management Toileting Transfers * Equipment Walker * Other Equipment n/a * List name and contact numbers for known caregivers / representatives who currently or will assist patient after discharge: CECILY MCINTYRE (dtr) [phone] * Verbal permission to speak to the caregivers and representatives has been obtained from the patient. Yes * Community resources currently utilized Home Health * Please name any agencies selected above. [facility] * Additional services required to return to the preadmission environment? Yes * Can the patient safely return to the preadmission environment? Yes * Has this patient been hospitalized within the prior 30 days at any hospital? No External Providers [facility] Date: Service Request Date: Service Type: Resolution: Reviewer: Comments: Coverage Notice Reviewer: [email or web address] Stephanie Stock Notice Issued Date-Time: 07/05/2020 15:25 Notice Type: IM Discharge Notice Notice Delivered To: Patient Relationship to Patient: Self Bowl Sander Name: Delivery Method: HAND - Hand Delivered Sirena Days: Prior Verbal Notification: Recipient Understood Notice: Yes Recipient Signature: Yes Med Rec Note Co-signed by Attending: Coverage Notice Comment: DC IMM delivered, explained, signed by the patient, and placed in chart. Reviewer: [id number] Stephanie Stock Notice Issued Date-Time: 07/05/2020 15:25 Notice Type: Patient Choice Letter Notice Delivered To: Patient Relationship to Patient: Self Bowl Sander Name: Delivery Method: HAND - Hand Delivered Sirena Days: Prior Verbal Notification: Recipient Understood Notice: Yes Recipient Signature: Yes Med Rec Note Co-signed by Attending: Coverage Notice Comment: [facility] Last DP export: 08/19/20 9:16 am Patient Name: ADELFO DIALLO Page [id number] at 0848 All edits/amendments must be made on the electronic document DICTATION DATE: 08/21/20846 EMBEDDED NURSE: COOPER 08/21/2047 RPT#: [id number] DC DATE: STATUS: ADM IN [facility] [address] [place] [address] END OF REPORT
--- NOTE | 2020-08-21 09:13 | NUR ---
1ST [facility]'S INFUSING. DAUGHTER AT BS. SPOKE TO CM RE: TRANSFER. TRANSFER STILL SCHEDULED AFTER 2UPRBC INFUSED.
--- NOTE | 2020-08-21 14:58 | NUR ---
PT DCD TO [place] BY AMBULANCE.
--- NOTE | 2020-08-21 19:10 | MORECARE ---
CASE MANAGEMENT DISCHARGE SUMMARY PATIENT: ADELFO DIALLO UNIT: [id number] ADM DATE: 07/03/20 AGE: 65 : 57 SEX: F ROOM/BED: D.2314 AUTHOR: ELIZABETH TORRES PHYSICIAN: REFERRING PHYSICIAN: BRIGIDA PATTERSON DO DATE OF SERVICE: 08/21/20 Discharge Plan Patient Name: ADELFO DIALLO Facility: [facility]:[place] : 1955 Planned Disposition: Home with Home Health Anticipated Discharge Date: Discharge Date: 08/21/2020 Expected LOS: Initial Reviewer: [email or web address] Initial Review Date: 07/03/2020 Generated: 08/21/20 8:09 pm Comments DCP- Discharge Planning Updated by [id number]: Amanda Harris on 08/21/20 6:[address] LATE ENTRY 08/20/20 Received a call from Apoorva at [facility] in [place]. They can accept patient in am. CM notified nursing and they are going to contact patient's daughter of transfer so she can visit in early am before transfer. CM gave nursing accepting physician and number to call report. Ambulance will transport. DCP- Discharge Planning Updated by [email or web address]: Avril Sin on 08/17/20 1:[address] CM spoke with Dax at [facility] about status of referral. Dax states she just obtained auth from [employer]. States she does not have a bed available today. But anticipates possible bed availability tomorrow. Dax will call CM back tomorrow morning with bed status. CM faxed updated records as requested. CM called and spoke with patient's daughter about status of discharge planning. Daughter verbalized understanding and satisfaction with discharge plans. CM will call daughter back tomorrow with bed status update. DC IMM explained and served via telephone. Sent copy to daughter via certified mail, return receipt requested. DCP- Discharge Planning Updated by [email or web address]: Kathie Plascencia on 08/02/20 1:[address] Patient Name: ADELFO DIALLO Admission Status: ER Accout number: [id number] Admission Date: 07-03-2020 : 1955 Admission Diagnosis:INFCT FOL A PROCEDURE, DEEP INCISIONAL SURGICAL SITE, I Attending: BRIGIDA PATTERSON Current LOS: 30 Anticipated DC Date: Planned Disposition: Home with Home Health Primary Insurance: [facility] [employer] Discharge Planning Comments: CM SPOKE WITH PATIENT'S DAUGHTER LINDSEY AND THEY PLAN FOR HER TO GO HOME WITH HOME HEALTH AND MEDICAL EQUIPMENT WHEN STABLE FOR DC. SHE IS SET UP WITH [facility] AND HAS EQUIPMENT WITH [employer]. HER OXYGEN DEMAND HAS INCREASED TO 15 LITERS TODAY FROM 5LITERS YESTERDAY. CM WILL CONTINUE TO FOLLOW AND ASSIST NEEDED. Warehouse Logistics Coordinator: Kathie Plascencia DCP- Discharge Planning Updated by [email or web address]: Roz Jessica on 07/29/20 11:[address] CM spoke with patient's daughter again regarding LTACH. She said the one in [place] may be ok and she will check on the 2 LTACH's in [place]. She refuses the LTACH's any where else on the list. She states she may consider patient to come home with [facility] if she can get a hospital bed and a emily lift. I explained the high oxygen demands she is requiring now and why LTACH would be a better/safer DC plan. She states she will call me back with her decision. DCP- Discharge Planning Updated by [email or web address]: Amanda Harris on 07/28/20 6:[address] CM attempted to call daughter but didn't get an answer. DCP- Discharge Planning Updated by [email or web address]: Roz Jessica on 07/27/20 11:[address] CM attempted to call daughter and the mailbox was full and could not leave a message. I will attempt again later in the day. CM will continue to follow and assist with discharge planning/needs. DCP- Discharge Planning Updated by [id number]: Amanda Harris on 07/25/20 1:[address] CM notified by physical therapy that patient is max assist x2 men. He is recommending placement v/s LTACH. CM will continue to follow and assist as needed with discharge planning / needs. DCP- Discharge Planning Updated by [email or web address]: Kathie Plascencia on 07/15/20 3:[address] Patient Name: ADELFO DIALLO Admission Status: ER Accout number: [id number] Admission Date: 07-03-2020 : 1955 Admission Diagnosis:INFCT FOL A PROCEDURE, DEEP INCISIONAL SURGICAL SITE, I Attending: BRIGIDA PATTERSON Current LOS: 12 Anticipated DC Date: Planned Disposition: Home with Home Health Primary Insurance: [facility] [employer] Discharge Planning Comments: SPOKE WITH NIDA BOWSER AND PATIENT IS NOT MEDICALLY READY TO DC. WHITE COUNT IS STILL ELEVATED AND CXR PENDING. [facility] WILL DELIVER HER OXYGEN TO HER ROOM TODAY AND [facility] WILL SEE HER WHEN SHE IS DISCHARGED. CM TO FOLLOW AND ASSIST NEEDED. Warehouse Logistics Coordinator: Kathie Plascencia DCP- Discharge Planning Updated by [id number]: Domingo Stock on 07/05/20 3:[address] CM met with patient to complete DC plan and to evaluate needs. Patient lives at home with her daughter, Lindsey Mcintyre ([phone]). CM discussed availability of home health, rehab services, and medical equipment. Patient Declined Inpatient Rehab but would like to resume [facility]. Spoke with Thais at [facility], patient is current and on hold for hospitalization. Clinicals faxed to [facility]. GWENDOLYN refusal for inpatient rehab and acceptance of [facility] signed and placed on chart. Patient voiced no other needs at this time and is satisfied with DC plan. DC IMM delivered, explained, signed by the patient, and placed in chart. Signed form also left with the patient. CM will continue to follow and will assist as needed with dc plans/needs. DCPIA - Discharge Planning Initial Assessment Updated by [id number]: Domingo Stock on 07/05/20 3:39 pm * Is the patient Alert and Oriented? Yes * How many steps to enter\exit or inside your home? RAMP * PCP [facility] * Pharmacy [facility] * Preadmission Environment Home with Family * ADLs Partial Dependent * Partial ADLs (Assistance needed) Ambulation Bathing Dressing Eating Medication Management Toileting Transfers * Equipment Walker * Other Equipment n/a * List name and contact numbers for known caregivers / representatives who currently or will assist patient after discharge: LINDSEY MCINTYRE (dtr) [phone] * Verbal permission to speak to the caregivers and representatives has been obtained from the patient. Yes * Community resources currently utilized Home Health * Please name any agencies selected above. [facility] * Additional services required to return to the preadmission environment? Yes * Can the patient safely return to the preadmission environment? Yes * Has this patient been hospitalized within the prior 30 days at any hospital? No Coverage Notice Reviewer: [email or web address] Stock Notice Issued Date-Time: 07/05/2020 15:25 Notice Type: IM Discharge Notice Notice Delivered To: Patient Relationship to Patient: Self Captain Airline Pilot Name: Delivery Method: HAND - Hand Delivered Sirena Days: Prior Verbal Notification: Recipient Understood Notice: Yes Recipient Signature: Yes Med Rec Note Co-signed by Attending: Coverage Notice Comment: DC IMM delivered, explained, signed by the patient, and placed in chart. Reviewer: [id number] Stephanie Stock Notice Issued Date-Time: 07/05/2020 15:25 Notice Type: Patient Choice Letter Notice Delivered To: Patient Relationship to Patient: Self Captain Airline Pilot Name: Delivery Method: HAND - Hand Delivered Sirena Days: Prior Verbal Notification: Recipient Understood Notice: Yes Recipient Signature: Yes Med Rec Note Co-signed by Attending: Coverage Notice Comment: [facility] Last DP export: 08/21/20 7:48 am Patient Name: ADELFO DIALLO Page 11765 at 1910 All edits/amendments must be made on the electronic document DICTATION DATE: 08/21/201909 CAMPUS ADMINISTRATIVE ASSISTANT: COOPER 08/21/201909 RPT#: [id number] DC DATE:08/21/20 STATUS: DIS IN [facility] [address] [place] [address] END OF REPORT
--- NOTE | 2020-08-21 19:17 | MORECARE ---
CASE MANAGEMENT DISCHARGE SUMMARY PATIENT: ADELFO DIALLO UNIT: [id number] ADM DATE: 07/03/20 AGE: 65 : 57 SEX: F ROOM/BED: D.2314 AUTHOR: MELISSA,DOC PHYSICIAN: REFERRING PHYSICIAN: BRIGIDA PATTERSON DO DATE OF SERVICE: 08/21/20 Discharge Plan Patient Name: ADELFO DIALLO Facility: [facility]:[place] : 1955 Planned Disposition: Home with Home Health Anticipated Discharge Date: Discharge Date: 08/21/2020 Expected LOS: Initial Reviewer: [id number] Initial Review Date: 07/03/2020 Generated: 08/21/20 8:16 pm Comments DCP- Discharge Planning Updated by [email or web address]: Amanda Harris on 08/21/20 6:[address] [facility] spoke with Kristin patient's nurse early am and she stated that patient's H&H was low and will need to be transfused prior to transport. Kristin stated that patient's daughter was in route for visit. [facility] called and notified Apoorva at [facility] of delay. Apoorva stated that was fine and to send updated clinicals. CM faxed updates. Patient will discharge afternoon for LTACH. DCP- Discharge Planning Updated by [email or web address]: Amanda Harris on 08/21/20 6:[address] LATE ENTRY 08/20/20 Received a call from Apoorva at [facility] in [place]. They can accept patient in am. CM notified nursing and they are going to contact patient's daughter of transfer so she can visit in early am before transfer. CM gave nursing accepting physician and number to call report. Ambulance will transport. DCP- Discharge Planning Updated by [email or web address]: Avril Sin on 08/17/20 1:[address] CM spoke with Dax at [facility] about status of referral. Dax states she just obtained auth from [employer]. States she does not have a bed available today. But anticipates possible bed availability tomorrow. Dax will call [facility] back tomorrow morning with bed status. CM faxed updated records as requested. CM called and spoke with patient's daughter about status of discharge planning. Daughter verbalized understanding and satisfaction with discharge plans. CM will call daughter back tomorrow with bed status update. DC IMM explained and served via telephone. Sent copy to daughter via certified mail, return receipt requested. DCP- Discharge Planning Updated by [id number]: Kathie Plascencia on 08/02/20 1:[address] Patient Name: ADELFO DIALLO Admission Status: ER Accout number: [id number] Admission Date: 07-03-2020 : 1955 Admission Diagnosis:INFCT FOL A PROCEDURE, DEEP INCISIONAL SURGICAL SITE, I Attending: BRIGIDA PATTERSON Current LOS: 30 Anticipated DC Date: Planned Disposition: Home with Home Health Primary Insurance: [facility] [employer] Discharge Planning Comments: CM SPOKE WITH PATIENT'S DAUGHTER LINDSEY AND THEY PLAN FOR HER TO GO HOME WITH HOME HEALTH AND MEDICAL EQUIPMENT WHEN STABLE FOR DC. SHE IS SET UP WITH [facility] AND HAS EQUIPMENT WITH [employer]. HER OXYGEN DEMAND HAS INCREASED TO 15 LITERS TODAY FROM 5LITERS YESTERDAY. CM WILL CONTINUE TO FOLLOW AND ASSIST NEEDED. Aesthetics Instructor: Kathie Plascencia DCP- Discharge Planning Updated by [id number]: Roz Lopez on 07/29/20 11:[address] CM spoke with patient's daughter again regarding LTACH. She said the one in [place] may be ok and she will check on the 2 LTACH's in [place]. She refuses the LTACH's any where else on the list. She states she may consider patient to come home with [facility] if she can get a hospital bed and a emily lift. I explained the high oxygen demands she is requiring now and why LTACH would be a better/safer DC plan. She states she will call me back with her decision. DCP- Discharge Planning Updated by [email or web address]: Amanda Harris on 07/28/20 6:[address] CM attempted to call daughter but didn't get an answer. DCP- Discharge Planning Updated by [id number]: Roz Lopez on 07/27/20 11:[address] CM attempted to call daughter and the mailbox was full and could not leave a message. I will attempt again later in the day. CM will continue to follow and assist with discharge planning/needs. DCP- Discharge Planning Updated by [id number]: Amanda Harris on 07/25/20 1:[address] CM notified by physical therapy that patient is max assist x2 men. He is recommending placement v/s LTACH. CM will continue to follow and assist as needed with discharge planning / needs. DCP- Discharge Planning Updated by [id number]: Kathiedavid Plascencia on 07/15/20 3:[address] Patient Name: ADELFO DIALLO Admission Status: ER Accout number: [id number] Admission Date: 07-03-2020 : 1955 Admission Diagnosis:INFCT FOL A PROCEDURE, DEEP INCISIONAL SURGICAL SITE, I Attending: BRIGIDA PATTERSON Current LOS: 12 Anticipated DC Date: Planned Disposition: Home with Home Health Primary Insurance: [facility] [employer] Discharge Planning Comments: SPOKE WITH NIDA BOWSER AND PATIENT IS NOT MEDICALLY READY TO DC. WHITE COUNT IS STILL ELEVATED AND CXR PENDING. [facility] WILL DELIVER HER OXYGEN TO HER ROOM TODAY AND [facility] WILL SEE HER WHEN SHE IS DISCHARGED. CM TO FOLLOW AND ASSIST NEEDED. Aesthetics Instructor: Kathie Plascencia DCP- Discharge Planning Updated by [email or web address]: Domingo Stock on 07/05/20 3:[address] CM met with patient to complete DC plan and to evaluate needs. Patient lives at home with her daughter, Lindsey Mcintyre ([phone]). CM discussed availability of home health, rehab services, and medical equipment. Patient Declined Inpatient Rehab but would like to resume [facility]. Spoke with Thais at [facility], patient is current and on hold for hospitalization. Clinicals faxed to [facility]. GWENDOLYN refusal for inpatient rehab and acceptance of [facility] signed and placed on chart. Patient voiced no other needs at this time and is satisfied with DC plan. DC IMM delivered, explained, signed by the patient, and placed in chart. Signed form also left with the patient. CM will continue to follow and will assist as needed with dc plans/needs. DCPIA - Discharge Planning Initial Assessment Updated by [id number]: Domingo Stock on 07/05/20 3:39 pm * Is the patient Alert and Oriented? Yes * How many steps to enter\exit or inside your home? RAMP * PCP [facility] * Pharmacy [facility] * Preadmission Environment Home with Family * ADLs Partial Dependent * Partial ADLs (Assistance needed) Ambulation Bathing Dressing Eating Medication Management Toileting Transfers * Equipment Walker * Other Equipment n/a * List name and contact numbers for known caregivers / representatives who currently or will assist patient after discharge: LINDSEY MCINTYRE (dtr) [phone] * Verbal permission to speak to the caregivers and representatives has been obtained from the patient. Yes * Community resources currently utilized Home Health * Please name any agencies selected above. [facility] * Additional services required to return to the preadmission environment? Yes * Can the patient safely return to the preadmission environment? Yes * Has this patient been hospitalized within the prior 30 days at any hospital? No Coverage Notice Reviewer: [id number] Stephanie Stock Notice Issued Date-Time: 07/05/2020 15:25 Notice Type: IM Discharge Notice Notice Delivered To: Patient Relationship to Patient: Self Goggles Assembler Name: Delivery Method: HAND - Hand Delivered Sirena Days: Prior Verbal Notification: Recipient Understood Notice: Yes Recipient Signature: Yes Med Rec Note Co-signed by Attending: Coverage Notice Comment: DC IMM delivered, explained, signed by the patient, and placed in chart. Reviewer: [id number] Stephanie Sotck Notice Issued Date-Time: 07/05/2020 15:25 Notice Type: Patient Choice Letter Notice Delivered To: Patient Relationship to Patient: Self Goggles Assembler Name: Delivery Method: HAND - Hand Delivered Sirena Days: Prior Verbal Notification: Recipient Understood Notice: Yes Recipient Signature: Yes Med Rec Note Co-signed by Attending: Coverage Notice Comment: Margaret Valdovinos [facility] Reviewer: [id number] Stephanie Harris Notice Issued Date-Time: 08/21/2020 19:12 Notice Type: IM Discharge Notice Notice Delivered To: Family Member Relationship to Patient: Daughter Goggles Assembler Name: Lindsey Mcintyre Delivery Method: HAND - Hand Delivered Sirena Days: Prior Verbal Notification: Recipient Understood Notice: Yes Recipient Signature: Yes Med Rec Note Co-signed by Attending: Coverage Notice Comment: Last DP export: 08/21/20 6:10 pm Patient Name: ADELFO DIALLO Page [id number] at 1917 All edits/amendments must be made on the electronic document DICTATION DATE: 08/21/201915 AUTO WRECKER: COOPER 08/21/201915 RPT#: [id number] DC DATE:08/21/20 STATUS: DIS IN [facility] [address] [place] [address] END OF REPORT
== END 2020-08-21 14:30 | DRG 862 ==
LOC: D.ER 19:07 → D.ICU 22:33 → D.EDHOLD 22:33 → D.MS 22:33 → D.M2 07-20 12:35 → D.ICU 08-02 14:56
PROVIDERS: Emergency Medicine; Family Medicine; Family Medicine Adult Medicine; Internal Medicine Nephrology; Internal Medicine Pulmonary Disease; Podiatrist Foot & Ankle Surgery; ADMIT Family Medicine; ATTEND Family Medicine
PROC: XW033E5 Introduction of Remdesivir Anti-infective into Peripheral Vein, Percutaneous Approach, New Technology Group 5 (ICD-10-PCS; principal; 2020-07-21)
PROC: XW13325 Transfusion of Convalescent Plasma (Nonautologous) into Peripheral Vein, Percutaneous Approach, New Technology Group 5 (ICD-10-PCS; 2020-07-21)
PROC: 02HV33Z Insertion of Infusion Device into Superior Vena Cava, Percutaneous Approach (ICD-10-PCS; 2020-08-08)
PROC: 0BH17EZ Insertion of Endotracheal Airway into Trachea, Via Natural or Artificial Opening (ICD-10-PCS; 2020-08-11)
PROC: 5A1955Z Respiratory Ventilation, Greater than 96 Consecutive Hours (ICD-10-PCS; 2020-08-11)
PROC: 0B9F8ZX Drainage of Right Lower Lung Lobe, Via Natural or Artificial Opening Endoscopic, Diagnostic (ICD-10-PCS; 2020-08-20)
DX: T81.49XA Infection following a procedure, other surgical site, initial encounter (principal); A41.9 Sepsis, unspecified organism; U07.1 COVID-19; I50.33 Acute on chronic diastolic (congestive) heart failure; J12.82 Pneumonia due to coronavirus disease 2019; N17.9 Acute kidney failure, unspecified; I13.0 Hypertensive heart and chronic kidney disease with heart failure and stage 1 through stage 4 chronic kidney disease, or unspecified chronic kidney disease; E87.2 Acidosis; E44.0 Moderate protein-calorie malnutrition; Z68.41 Body mass index [BMI] 40.0-44.9, adult; E11.22 Type 2 diabetes mellitus with diabetic chronic kidney disease; N18.9 Chronic kidney disease, unspecified; D64.9 Anemia, unspecified; E87.5 Hyperkalemia; I25.10 Atherosclerotic heart disease of native coronary artery without angina pectoris; K21.9 Gastro-esophageal reflux disease without esophagitis; M19.90 Unspecified osteoarthritis, unspecified site; E11.40 Type 2 diabetes mellitus with diabetic neuropathy, unspecified; L08.9 Local infection of the skin and subcutaneous tissue, unspecified

== ENCOUNTER → 2020-11-04 20:58 | Outpatient (CLI) | payer MEDICARE ==
[2020-08-07 18:04] VITALS: BMI 44.9
[~2020-11-04 20:58] MED LIST changes: +AVAPRO300 MG PO; +BAYER CHEWABLE81 MG PO; +COLACE100 MG PO; +COREG12.5 MG PO; +EZFE 200200 MG PO; +FUROSEMIDE20 MG PO; +HYDROCHLOROTH12.5 M1 PO; +HYDROCODON-ACE1 EAC7 PO; +LANTUS INS100 UNITS/ SC; +NEURONTIN 400400 MG PO; +NOVOLIN R; +PLAVIX75 MG PO
[2020-11-07 13:04] LABS: BACTERIA MODERATE HPF (NONE SEEN); BILIRUBIN NEGATIVE (NEGATIVE); KETONE NEGATIVE (NEGATIVE); NITRITE NEGATIVE (NEGATIVE); UROBILINOGEN NORMAL mg/dL (< 2); WHITE CELLS - URINE 25-50 HPF (0-4)
== END | disposition home or self-care (01) ==
LOC: D.LABREF 20:58
PROVIDERS: ATTEND Family Medicine
DX: N39.0 Urinary tract infection, site not specified (principal)

== ENCOUNTER → 2020-11-11 10:30 | Outpatient (CLI) | payer MEDICARE, MEDICAID ==
[2020-08-07 18:04] VITALS: BMI 44.9
== END | disposition home or self-care (01) ==
LOC: D.CT 08:30
PROVIDERS: ATTEND Nurse Practitioner Family
DX: R10.11 Right upper quadrant pain (principal)

== ENCOUNTER → 2020-11-22 20:02 | Outpatient (CLI) | payer MEDICARE, MEDICAID ==
[2020-08-07 18:04] VITALS: BMI 44.9
[2020-11-22 20:14] LABS: BASOPHILS 0.8 % (0-2); EOSINOPHILS 4.6 % (0-7); HEMATOCRIT 31.7 % (36.0-48.0); LYMPHOCYTES 18.7 % (15-50); MCH 28.2 pg (26.0-34.0); MCHC 31.4 g/dL (31.0-37.0); MCV 89.6 fL (80.0-100.0); MEAN PLATELET VOLUME 8.3 fL (7.4-10.4); NEUTROPHILS 66.9 % (40-80); RBC 3.53 10x6/uL (4.00-5.40); RDW 16.5 % (11.5-14.5); WBC 10.4 10x3/uL (4.8-10.8)
[2020-11-22 20:29] LABS: ANION GAP 10.1 mmol/L (8-16); CALCIUM 8.4 mg/dL (8.5-10.1); CARBON DIOXIDE 32.8 mmol/L (21.0-32.0); POTASSIUM - SERUM 3.9 mmol/L (3.5-5.1)
[2020-11-22 20:45] LABS: PLATELET COUNT 322 10x3/uL (130-400)
== END | disposition home or self-care (01) ==
LOC: D.LABREF 20:02
PROVIDERS: ATTEND Family Medicine
DX: Z48.00 Encounter for change or removal of nonsurgical wound dressing (principal); E11.621 Type 2 diabetes mellitus with foot ulcer

== ENCOUNTER → 2020-11-25 19:30 | Outpatient (CLI) | payer MEDICARE, MEDICAID ==
[2020-08-07 18:04] VITALS: BMI 44.9
[2020-11-25 21:07] LABS: BACTERIA MOD HPF (<MOD); BILIRUBIN NEGATIVE (NEGATIVE); KETONE NEGATIVE mg/dL (< 1+); NITRITE NEGATIVE (NEGATIVE); SQUAMOUS EPITHELIAL 1 HPF (0-4); UROBILINOGEN NORMAL mg/dL (< 2); WHITE CELLS - URINE 87 HPF (0-4)
== END | disposition home or self-care (01) ==
LOC: D.LABREF 19:30
PROVIDERS: ATTEND Family Medicine
DX: Z46.6 Encounter for fitting and adjustment of urinary device (principal)